=== PATIENT | female | born 1955 | race Caucasian/White ===

== ENCOUNTER 2017-04-05 11:22 | Emergency (ER) | payer MEDICAID ==
[2017-04-05 11:33] VITALS: BMI 33.8
[2017-04-05 11:34] VITALS: BP 157/92; PULSE 112; RESP 20; TEMP 97.7; O2SAT 96
--- NOTE | 2017-04-05 12:29 | ED PDOC ---
HPI: Nose Bleed Time Seen by Provider: 04/05/17 11:49 Chief Complaint (Nursing): GI Problem History Per: Patient History/Exam Limitations: no limitations Onset/Duration Of Symptoms: Sudden Onset (this am) Current Symptoms Are (Timing): Still Present Location Of Bleeding: Right Nare Symptoms Have Been: Episodic Severity: Mild Associated Symptoms: denies: Syncope, Lightheadedness, Nasal Congestion, Nasal Drainage Anticoagulant/Antiplatlet Use?: No Recent Aspirin Use: No Additional Complaint(s): Pt c/o vomiting "a lot of blood" yesterday night at around 21:00. No instances of vomiting since. + nasal bleed on right nare. Pt states she has no nausea, no chest or abdominal pain, no shortness of breath, no fever. Past Medical History Reviewed: Historical Data, Nursing Documentation, Vital Signs Vital Signs: Last Vital Signs Temp 97.7 F 04/05/17 11:50 Pulse 112 H 04/05/17 11:50 Resp 20 04/05/17 11:50 BP 157/92 H 04/05/17 11:50 Pulse Ox 96 04/05/17 11:50 - Medical History PMH: Arthritis, Diabetes, HTN, Hypercholesterolemia Denies: Chronic Kidney Disease - Surgical History Surgical History: Cholecystectomy, - Family History Family History: States: Diabetes, Hypertension - Living Arrangements Living Arrangements: With Family - Home Medications Home Medications: Ambulatory Orders Medication Instructions Recorded Escitalopram [Lexapro] 10 mg PO DAILY 05/01/15 Fenofibrate [Triglide] 160 mg PO DAILY 05/01/15 Hydroxyzine Pamoate 25 mg PO TID 05/01/15 Metoprolol Succinate 100 mg PO DAILY 05/01/15 Ramipril [Altace] 10 mg PO BID 05/01/15 Famotidine [Pepcid] 20 mg PO DAILY #0 tab 05/04/15 Insulin Detemir [Levemir] 60 units SC HS #0 vial 05/04/15 Insulin Lispro [humALOG] 24 units SC AC #0 ml 05/04/15 Ramipril [Altace] 10 mg PO BID #0 cap 05/04/15 amLODIPine [Norvasc] 10 mg PO DAILY #0 tab 05/04/15 Acetaminophen with Codeine 2 tab PO Q4H PRN #22 tab 06/27/15 [Tylenol with Codeine No. 3 300 mg-30 mg] Clindamycin [Cleocin] 300 mg PO TID #21 cap 05/11/15 Fluconazole [Diflucan] 150 mg PO QWK #2 tab 05/11/15 Pramoxine 1% FOAM [Proctofoam] 15 applic TOP Q6H #1 aer 05/11/15 - Allergies Allergies/Adverse Reactions: Allergies Allergy/AdvReac Type Severity Reaction Status Date / Time No Known Allergies Allergy Verified 04/30/15 21:21 Review of Systems ROS Statement: Except As Marked, All Systems Reviewed And Found Negative Constitutional: Negative for: Fever, Chills Cardiovascular: Negative for: Chest Pain, Palpitations Respiratory: Negative for: Cough, Shortness of Breath Gastrointestinal: Negative for: Nausea, Vomiting, Abdominal Pain Neurological: Negative for: Weakness, Numbness Physical Exam - Reviewed Nursing Documentation Reviewed: Yes - Physical Exam Appears: Positive for: Well, No Acute Distress Head Exam: Positive for: ATRAUMATIC, NORMAL INSPECTION, NORMOCEPHALIC Eye Exam: Positive for: Normal appearance, EOMI, PERRL, Periorbital swelling ENT: Positive for: Pharynx Is (nml), Other (mild dried blood in right nare). Negative for: Pharyngeal Erythema, Tonsillar Exudate, Tonsillar Swelling Neck: Positive for: Normal, Painless ROM, Supple Cardiovascular/Chest: Positive for: Regular Rate, Rhythm. Negative for: Edema, Gallop Respiratory: Positive for: Normal Breath Sounds. Negative for: Stridor, Wheezing Gastrointestinal/Abdominal: Positive for: Normal Exam, Bowel Sounds, Soft. Negative for: Tenderness Extremity: Positive for: Normal ROM. 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 Negative for: Motor/Sensory Deficits - Laboratory Results Result Diagrams: 04/05/17 12:59 04/05/17 12:59 - ECG O2 Sat by Pulse Oximetry: 96 Pulse Ox Interpretation: Normal - Progress ED Course And Treament: nose bleeding stopped labs nml advise f/u with clinic pmd and ent Re-evaluation Time: 13:40 Condition: Improved Disposition - Clinical Impression Clinical Impression: Right-sided epistaxis - Patient ED Disposition Is Patient to be Admitted: No Counseled Patient/Family Regarding: Studies Performed, Diagnosis, Need For Followup - Disposition Referrals: [facility] [Outside] (2 to 3 days) Shivam Moseley MD [Staff Provider] - (2 to 3 days) Disposition: Routine/Home Disposition Time: 13:41 Condition: GOOD Instructions: Nosebleed (ED)
[2017-04-05 13:05] LABS: BASO # 0.1 K/uL (0.0-0.2); BASO % 0.8 % (0.0-2.0); EOS # 0.6 K/uL (0.0-0.7); EOS % 8.7 % (0.0-4.0); HEMATOCRIT 35.6 % (34.0-47.0); LYMPH # 2.5 K/uL (1.0-4.3); LYMPH % 35.6 % (20.0-40.0); MEAN CELL VOLUME 84.7 fl (81.0-99.0); MEAN PLATELET VOLUME 7.3 fl (7.2-11.7); MONO # 0.5 K/uL (0.0-0.8); MONO % 7.7 % (0.0-10.0); NEUT # 3.3 K/uL (1.8-7.0); NEUT % 47.2 % (50.0-75.0); NRBC % 0.1 % (0.0-0.0); RED CELL DISTRIBUTION WIDTH 12.9 % (11.5-14.5)
[2017-04-05 13:32] LABS: AMYLASE 63 U/L (30-110); CHLORIDE 101 mmol/L (98-107); GLUCOSE,RANDOM 234 mg/dL (65-105); TOTAL PROTEIN 7.8 G/DL (6.3-8.2)
[2017-04-05 13:33] LABS: ALB/GLOB RATIO 1.2 (1.0-2.1); ALKALINE PHOSPHATASE 94 U/L (38-126); ALT/SGPT 42 U/L (9-52); AST/SGOT 46 U/L (14-36); BILIRUBIN,TOTAL 0.2 mg/dl (0.2-1.3); BLOOD UREA NITROGEN 17 mg/dl (7-17); CALCIUM 9.8 mg/dL (8.4-10.2); CARBON DIOXIDE 24 mmol/L (22-30); GFR AFRICAN-AMERICAN > 60; LIPASE 93 U/L (23-300); SODIUM 139 mmol/l (132-148)
== END 2017-04-05 13:55 | disposition home or self-care (01) ==
LOC: H.ER 11:22
DX: R04.0 Epistaxis (principal); E11.9 Type 2 diabetes mellitus without complications; E78.00 Pure hypercholesterolemia, unspecified; I10 Essential (primary) hypertension; Z79.4 Long term (current) use of insulin

== ENCOUNTER 2018-02-22 09:23 | Inpatient (IN) | payer MEDICAID ==
[2018-02-22 09:24] VITALS: BMI 33.8
[2018-02-22] MEDS ORDERED: Sodium Chloride 0.9% 1,000 ML IV STA (09:55)
--- NOTE | 2018-02-22 10:02 | ED PDOC ---
HPI: Abdomen Time Seen by Provider: 02/22/18 09:39 Chief Complaint (Nursing): Dizziness/Lightheaded Chief Complaint (Provider): Abdominal pain History Per: Patient Onset/Duration Of Symptoms: Other (4 months) Additional Complaint(s): Pt reports generalized abdominal pain X 4 months, intermittent. Denies fever, CP, SOB, nausea, vomiting. States she has had diarrhea "for years". Also c/o elevated glucose X few days, compliant with meds. Past Medical History Reviewed: Nursing Documentation, Vital Signs Vital Signs: Last Vital Signs Temp 98.4 F 02/26/18 08:38 Pulse 94 H 02/26/18 09:26 Resp 20 02/26/18 08:38 BP 157/81 H 02/26/18 09:26 Pulse Ox 97 02/26/18 08:38 - Medical History PMH: Arthritis, Diabetes, HTN, Hypercholesterolemia Denies: Chronic Kidney Disease - Surgical History Surgical History: Cholecystectomy, - Family History Family History: States: Diabetes, Hypertension - Social History Current smoker - smoking cessation education provided: No Alcohol: None - Home Medications Home Medications: Ambulatory Orders Medication Instructions Recorded Escitalopram [Lexapro] 10 mg PO DAILY 05/01/15 Hydroxyzine Pamoate 25 mg PO TID 05/01/15 Insulin Lispro [humALOG] 24 units SC AC #0 ml 05/04/15 amLODIPine [Norvasc] 10 mg PO DAILY #0 tab 05/04/15 Acetaminophen/Butalbital/Caf 2 tab PO PRN PRN 02/22/18 [Fioricet] Insulin Detemir [Levemir] 100 units SC HS 02/22/18 diaZEpam [Valium] 10 mg PO HS 02/22/18 Lisinopril [Zestril] 20 mg PO DAILY #30 tab 02/25/18 Metoprolol Succinate [Toprol XL] 25 mg PO DAILY #30 tab 02/25/18 amLODIPine [Norvasc] 10 mg PO DAILY #30 tab 02/25/18 - Allergies Allergies/Adverse Reactions: Allergies Allergy/AdvReac Type Severity Reaction Status Date / Time No Known Allergies Allergy Verified 02/22/18 09:43 Review of Systems Constitutional: Negative for: Fever, Chills Cardiovascular: Negative for: Chest Pain, Palpitations Respiratory: Negative for: Cough, Shortness of Breath Gastrointestinal: Positive for: Abdominal Pain, Diarrhea. Negative for: Nausea , Vomiting, Hematochezia, Hematemesis Genitourinary Female: Negative for: Dysuria, Hematuria Musculoskeletal: Negative for: Back Pain Skin: Negative for: Rash, Lesions Neurological: Negative for: Weakness, Numbness, Headache Physical Exam - Reviewed Nursing Documentation Reviewed: Yes Vital Signs Reviewed: Yes - Physical Exam Appears: Positive for: Well, No Acute Distress Skin: Positive for: Normal Color, Warm, Dry Eye Exam: Positive for: Normal appearance, EOMI, PERRL Neck: Positive for: Normal Cardiovascular/Chest: Positive for: Tachycardia Respiratory: Positive for: Normal Breath Sounds Gastrointestinal/Abdominal: Positive for: Bowel Sounds, Soft, Tenderness ( Generalized). 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 O2 Sat by Pulse Oximetry: 99 Pulse Ox Interpretation: Normal Medical Decision Making Medical Decision Makin yo female with abdominal pain and elevated glucose. - labs - EKG - CT abd/pelvis - Morphine - IVF Accession No. : [id number] Patient Name / ID : JOEL MARTINEZ / [id number] Exam Date : 02/22/2018 16:55:58 ( Approved ) Study Comment : Sex / Age : F / 62Y Creator : Jose Manuel Carl MD Dictator : Jose Manuel Carl MD Engraving Press Operator : Creosoting Engineer : Jose Manuel Carl MD Approver2 : Report Date : 02/22/2018 17:40:55 My Comment : HISTORY: Abdominal pain COMPARISON: 09/09/2017 FINDINGS: LUNGS: No active pulmonary disease. PLEURA: No significant pleural effusion identified, no pneumothorax apparent. CARDIOVASCULAR: No radiographic findings to suggest acute or significant cardiovascular disease. OSSEOUS STRUCTURES: No significant abnormalities. VISUALIZED UPPER ABDOMEN: Normal. OTHER FINDINGS: None. IMPRESSION: No active disease. No significant interval change compared to the prior examination(s). Accession No. : [id number] Patient Name / ID : JOEL MARTINEZ / [id number] Exam Date : 02/22/2018 12:08:38 ( Approved ) Study Comment : Sex / Age : F / 62Y Creator : Valentin Pardo MD Dictator : Valentin Pardo MD Engraving Press Operator : Creosoting Engineer : Valentin Pardo MD Approver2 : Report Date : 02/22/2018 13:18:19 My Comment : PROCEDURE: CT Abdomen and Pelvis with contrast HISTORY: Gen abd pain COMPARISON: Limited abdomen ultrasound examination 02/27/2015. TECHNIQUE: Contrast dose: Omnipaque 300, 95 cc Radiation dose: Total exam DLP = 983.46 mGy-cm. This CT exam was performed using one or more of the following dose reduction techniques: Automated exposure control, adjustment of the mA and/or kV according to patient size, and/or use of iterative reconstruction technique. FINDINGS: LOWER THORAX: Unremarkable. LIVER: Liver is diffusely diminished in attenuation compatible with hepatic steatosis. No focal mass or definite intrahepatic biliary duct dilatation and no cystic changes either. GALLBLADDER AND BILE DUCTS: Prior cholecystectomy again evident. PANCREAS: Unremarkable. No gross lesion or ductal dilatation. SPLEEN: Unremarkable. ADRENALS: Unremarkable. No mass. KIDNEYS AND URETERS: Unremarkable. No hydronephrosis. No solid mass. VASCULATURE: Unremarkable. No aortic aneurysm. BOWEL: Left colonic diverticulosis is appreciated, concentrated at the sigmoid segment without acute inflammation associated. No bowel obstruction. The stomach is collapsed partially. Consider gas-less stool at the upper cecum though a mass is difficult to exclude here. APPENDIX: The appendix not identified but there is no CT pattern suggest appendicitis at this time. PERITONEUM: Unremarkable. No free fluid. No free air. LYMPH NODES: Unremarkable. No enlarged lymph nodes. BLADDER: Unremarkable. REPRODUCTIVE: Unremarkable. BONES: Minimal spondylolisthesis L4-5. No destructive bony lesion appreciable throughout. OTHER FINDINGS: None. IMPRESSION: Nonacute abdomen pelvis CT in general. Hepatic steatosis appreciated diffusely and there is left colonic diverticular disease without acute inflammation associated. Considered gas a school versus a potential underlying mass at the upper cecum. Follow-up lower endoscopy or double-contrast barium enema is advised for further evaluation electively. 17:40 Pt with persistent mildly elevated HR. Now states she is SOB, D-dimer, troponin and proBNP ordered. Elevated D-dimer, unable to obtain CT chest PE protocol because she had CT abd/ pelvis with IV contrast earlier. Will admit for VQ in AM and will administered Lovenox. Disposition - Clinical Impression Clinical Impression: Hyperglycemia, Abdominal pain, Tachycardia - Patient ED Disposition Is Patient to be Admitted: Yes - Disposition Disposition Time: 18:21 Condition: STABLE - Pt Status Changed To: Hospital Disposition Of: Observation - POA Present On Arrival: Poor Glycemic Control
[2018-02-22] MEDS ORDERED: Morphine 4 MG/ML VIAL ONE (10:32)
[2018-02-22] MEDS ORDERED: Morphine 4 MG/ML VIAL IV STA (10:34)
[2018-02-22 10:39] LABS: BASO # 0.1 K/uL (0.0-0.2); BASO % 1.8 % (0.0-2.0); EOS # 0.4 K/uL (0.0-0.7); EOS % 8.5 % (0.0-4.0); HEMOGLOBIN 11.4 g/dL (12.0-16.0); LYMPH # 1.7 K/uL (1.0-4.3); LYMPH % 40.4 % (20.0-40.0); MEAN CELL VOLUME 85.1 fl (81.0-99.0); MEAN CORPUSCULAR HEMOGLOBIN 28.2 pg (27.0-31.0); MEAN CORPUSCULAR HGB CONC 33.1 g/dL (33.0-37.0); MEAN PLATELET VOLUME 7.6 fl (7.2-11.7); MONO # 0.4 K/uL (0.0-0.8); MONO % 8.4 % (0.0-10.0); NEUT # 1.7 K/uL (1.8-7.0); NEUT % 40.9 % (50.0-75.0); RBC 4.06 Mil/uL (3.80-5.20); WHITE BLOOD COUNT 4.3 K/uL (4.8-10.8)
[2018-02-22 10:53] LABS: INR 0.9 (0.9-1.2); PARTIAL THROMBOPLASTIN TIME 26.2 Seconds (25.6-37.1); PROTHROMBIN TIME 10.4 Seconds (9.8-13.1)
[2018-02-22 11:06] LABS: ALBUMIN 3.5 g/dL (3.5-5.0); ALT/SGPT 38 U/L (9-52); AST/SGOT 36 U/L (14-36); BLOOD UREA NITROGEN 21 mg/dl (7-17); CALCIUM 8.8 mg/dL (8.4-10.2); GFR AFRICAN-AMERICAN > 60; GFR NON-AFRICAN AMERICAN > 60; LIPASE 157 U/L (23-300)
[2018-02-22] MEDS ORDERED: Iohexol 300 50 ML ONE (11:54)
[2018-02-22] MEDS ORDERED: Sodium Chloride 0.9% 100 ML ONE (11:54)
--- NOTE | 2018-02-22 12:12 | CARD ---
APPROVED REPORT EKG Measurement Heart [id number] <Conclusion> Sinus tachycardia Nonspecific T wave abnormality Abnormal ECG
[2018-02-22 12:30] LABS: URINE BILIRUBIN NEGATIVE (NEGATIVE); URINE BLOOD NEGATIVE (NEGATIVE); URINE CLARITY CLEAR (Clear); URINE COLOR STRAW (YELLOW); URINE GLUCOSE (UA) >=500 mg/dL (Normal); URINE LEUKOCYTE ESTERASE NEG Leu/uL (Negative); URINE PROTEIN 100 mg/dL (NEGATIVE); URINE UROBILINOGEN 0.2-1.0 mg/dL (0.2-1.0)
--- NOTE | 2018-02-22 13:19 | CT ---
PROCEDURE: CT Abdomen and Pelvis with contrast HISTORY: Gen abd pain COMPARISON: Limited abdomen ultrasound examination 02/27/2015. TECHNIQUE: Contrast dose: Omnipaque 300, 95 cc Radiation dose: Total exam DLP = 983.46 mGy-cm. This CT exam was performed using one or more of the following dose reduction techniques: Automated exposure control, adjustment of the mA and/or kV according to patient size, and/or use of iterative reconstruction technique. FINDINGS: LOWER THORAX: Unremarkable. LIVER: Liver is diffusely diminished in attenuation compatible with hepatic steatosis. No focal mass or definite intrahepatic biliary duct dilatation and no cystic changes either. GALLBLADDER AND BILE DUCTS: Prior cholecystectomy again evident. PANCREAS: Unremarkable. No gross lesion or ductal dilatation. SPLEEN: Unremarkable. ADRENALS: Unremarkable. No mass. KIDNEYS AND URETERS: Unremarkable. No hydronephrosis. No solid mass. VASCULATURE: Unremarkable. No aortic aneurysm. BOWEL: Left colonic diverticulosis is appreciated, concentrated at the sigmoid segment without acute inflammation associated. No bowel obstruction. The stomach is collapsed partially. Consider gas-less stool at the upper cecum though a mass is difficult to exclude here. APPENDIX: The appendix not identified but there is no CT pattern suggest appendicitis at this time. PERITONEUM: Unremarkable. No free fluid. No free air. LYMPH NODES: Unremarkable. No enlarged lymph nodes. BLADDER: Unremarkable. REPRODUCTIVE: Unremarkable. BONES: Minimal spondylolisthesis L4-5. No destructive bony lesion appreciable throughout. OTHER FINDINGS: None. IMPRESSION: Nonacute abdomen pelvis CT in general. Hepatic steatosis appreciated diffusely and there is left colonic diverticular disease without acute inflammation associated. Considered gas a school versus a potential underlying mass at the upper cecum. Follow-up lower endoscopy or double-contrast barium enema is advised for further evaluation electively.
[2018-02-22] MEDS ORDERED: Sod Polystyrene Sulf 15 gm/60 ml Susp PO STA (13:23)
[2018-02-22] MEDS ORDERED: Sod Polystyrene Sulf 15 gm/60 ml Susp ONE (13:40)
[2018-02-22] MEDS ORDERED: Insulin Regular 100 units/ml IV STA ×2 (14:31→15:15)
[2018-02-22] MEDS ORDERED: Sodium Chloride 0.9% 500 ML IV STA ×2 (15:26→18:49)
--- NOTE | 2018-02-22 17:42 | RAD ---
HISTORY: Abdominal pain COMPARISON: 09/09/2017 FINDINGS: LUNGS: No active pulmonary disease. PLEURA: No significant pleural effusion identified, no pneumothorax apparent. CARDIOVASCULAR: No radiographic findings to suggest acute or significant cardiovascular disease. OSSEOUS STRUCTURES: No significant abnormalities. VISUALIZED UPPER ABDOMEN: Normal. OTHER FINDINGS: None. IMPRESSION: No active disease. No significant interval change compared to the prior examination(s).
[2018-02-22] MEDS ORDERED: Enoxaparin 80 mg Syringe SC STA (18:31)
[2018-02-22 18:37] LABS: B-TYPE NATRIURETIC PEPTIDE 29.9 pg/ml (0-900)
[2018-02-22 19:55] LABS: BLOOD UREA NITROGEN 15 mg/dl (7-17); GFR AFRICAN-AMERICAN > 60; GFR NON-AFRICAN AMERICAN > 60
--- NOTE | 2018-02-22 19:55 | US ---
EXAM: US Duplex Bilateral Lower Extremity Veins CLINICAL HISTORY: 62 years old, female; Signs and symptoms; Other: SOB TECHNIQUE: Real-time duplex ultrasound scan of the bilateral lower extremity veins integrating B-mode two-dimensional vascular structure, Doppler spectral analysis, color flow Doppler imaging and compression. COMPARISON: No relevant prior studies available. FINDINGS: Right deep veins: Unremarkable. No DVT in the right common femoral, femoral, proximal deep femoral or popliteal veins. The veins demonstrate normal color flow, are normally compressible, with normal phasic flow and/or augmentation response. Right superficial veins: Unremarkable. No thrombus in the visualized right great saphenous vein. Left deep veins: Unremarkable. No DVT in the left common femoral, femoral, proximal deep femoral or popliteal veins. The veins demonstrate normal color flow, are normally compressible, with normal phasic flow and/or augmentation response. Left superficial veins: Unremarkable. No thrombus in the visualized left great saphenous vein. Soft tissues: No acute findings. No popliteal cyst. IMPRESSION: No evidence of right or left lower extremity venous thrombosis.
[2018-02-22 20:23] LABS: ABG ALLEN TEST YES; ARTERIAL BLOOD GAS HCO3 21.8 mmol/L (21-28); ARTERIAL BLOOD GAS O2 CAPACITY 16.2 mL/dL (16-24); ARTERIAL BLOOD GAS O2 SAT 98.8 % (95-98); ARTERIAL BLOOD GAS PCO2 36 mm/Hg (35-45); ARTERIAL BLOOD GAS PH 7.37 (7.35-7.45); ARTERIAL BLOOD GAS PO2 75 mm/Hg (80-100); ARTERIAL BLOOD GAS TCO2 21.9 mmol/L (22-28)
[2018-02-22] MEDS ORDERED: Apap-Butalbital-Caffeine 325-50-40mg Tab ONE (20:30)
[2018-02-22] MEDS: Apap-Butalbital-Caffeine 325-50-40mg Tab PO PRN (20:44)
[2018-02-22] MEDS ORDERED: Sodium Chloride 0.45% 1,000 ML IV SCH (21:00)
[2018-02-22] MEDS: Insulin Lispro (humaLOG) 100 Units/ml Inj SC SCH (21:43)
[2018-02-23] MEDS: Apap-Butalbital-Caffeine 325-50-40mg Tab PO PRN ×3 (01:51→19:48)
[2018-02-23 06:18] LABS: HEMOGLOBIN 11.5 g/dL (12.0-16.0); MEAN CORPUSCULAR HEMOGLOBIN 28.3 pg (27.0-31.0); MEAN CORPUSCULAR HGB CONC 33.7 g/dL (33.0-37.0); RBC 4.05 Mil/uL (3.80-5.20); RED CELL DISTRIBUTION WIDTH 12.8 % (11.5-14.5); WHITE BLOOD COUNT 4.9 K/uL (4.8-10.8)
[2018-02-23 06:25] LABS: ALB/GLOB RATIO 0.9 (1.0-2.1); ALBUMIN 3.1 g/dL (3.5-5.0); ALT/SGPT 42 U/L (9-52); AST/SGOT 44 U/L (14-36); BLOOD UREA NITROGEN 11 mg/dl (7-17); CALCIUM 8.6 mg/dL (8.4-10.2); GFR AFRICAN-AMERICAN > 60; GFR NON-AFRICAN AMERICAN > 60; HDL CHOLESTEROL 26 MG/DL (30-70)
[2018-02-23 06:28] LABS: LDL CHOLESTEROL 51 mg/dL (0-129)
[2018-02-23 08:21] LABS: T4 6.56 ug/dl (5.5-11.0)
[2018-02-23] MEDS ORDERED: Enoxaparin 80 mg Syringe SC SCH ×2 (09:00→09:01)
[2018-02-23] MEDS ORDERED: Dextrose 50% SYRINGE Inj (50 ml) IV PRN (09:56)
[2018-02-23] MEDS ORDERED: Glucagon Recombinant 1 mg Inj IM PRN (09:56)
[2018-02-23] MEDS ORDERED: Magnesium Citrate Oral SOL (300 ml) PO ONE ×2 (11:00→20:00)
[2018-02-23] MEDS ORDERED: Iodixanol 320 MG/ML 100 ML BOTTLE IV ONE (11:25)
[2018-02-23] MEDS ORDERED: Sodium Chloride 0.9% 100 ML ONE (11:25)
[2018-02-23] MEDS: Omega-3-Acid Ethyl Esters 1 GM Cap PO SCH ×2 (12:46→17:10)
[2018-02-23] MEDS: Insulin Lispro (humaLOG) 100 Units/ml Inj SC SCH (12:48)
[2018-02-23] MEDS: Metoprolol Succinate 25 mg XL Tab PO SCH (12:48)
[2018-02-23] MEDS: Insulin Regular 100 units/ml SC SCH ×3 (12:58→21:16)
--- NOTE | 2018-02-23 13:40 | CT ---
PROCEDURE: CT Chest with contrast (Pulmonary Angiogram) HISTORY: SOB COMPARISON: None available. TECHNIQUE: Axial computed tomography images were obtained of the chest in the pulmonary arterial phase of enhancement. Coronal and sagittal reformatted images were created and reviewed. Intravenous contrast dose: 95 cc Visipaque Radiation dose: Total exam DLP = 425 mGy-cm. This CT exam was performed using one or more of the following dose reduction techniques: Automated exposure control, adjustment of the mA and/or kV according to patient size, and/or use of iterative reconstruction technique. FINDINGS: PULMONARY ARTERIES: Unremarkable. No pulmonary embolism. AORTA: No acute findings. No thoracic aortic aneurysm. LUNGS: A 1.3 cm nonspecific nodular opacity solid-appearing slight irregular margins in the lingula is noted. Thin fibrous strands emanating from it are noted. Benign and malignant etiologies are considerations for it. Follow-up needed PLEURAL SPACES: Unremarkable. No effusion or pneuomothorax. HEART: Coronary artery calcifications suggested. No cardiomegaly. No significant pericardial effusion. LYMPH NODES: No lymphadenopathy. BONES, CHEST WALL: Unremarkable. No fracture or destructive lesion OTHER FINDINGS: Right upper quadrant cholecystectomy clips. Hepatic steatosis suggested IMPRESSION: No pulmonary embolus. Lingular 1.3 cm irregularly marginated nodule -postinflammatory benign etiology is 1 consideration. Malignancy not excluded. Follow-up recommended.
[2018-02-23] MEDS ORDERED: Bisacodyl 5mg EC Tab PO ONE (14:00)
--- NOTE | 2018-02-23 14:24 | CP.PCM.HP ---
History of Present Illness - History of Present Illness History of Present Illness: CC: Abdominal pain. 62 y/o F brought to ER [facility] on 02/22/18, to be evaluated for intermittent generalized abdominal pain, gradually increased from about 4 moths , on DOA, pain has been dull, intermittent, severe intensity 7:10, with no relief. Associated to CT Abd/Pelv showing: Hepatic Steatosis, L Colonic Diverticular Disease without acute inflammation Worsening factor: As per Pt, night [employer] with elevated BS in 401 (finger stick), upon arrival to ER in the 274. Also elevated BP 167/92, HR 120'S. with associated symptoms of headache, dizziness. Aggravated factor: Food. Pt denied: Fever, chills, n/v, urinary symptoms, CP, syncope, LOC, numbness, SOB, cough, sick contact, recent travel out of [facility]. EKG shows: Sinus tachycardia. CXR: No active disease. Ext U-S: No DVT. Chest CT: No PE. Lingular 1.3cm irregularly marginalized nodule- postinflamatory benign etiology is 1 consideration. Malignancy not excluded. Present on Admission - Present on Admission Any Indicators Present on Admission: Yes History of Uncontrolled Diabetes: Yes Review of Systems - Constitutional Constitutional: Headache - EENT Eyes: Requires Corrective Lenses Ears: Other (negative) Nose/Mouth/Throat: Other (negative) - Cardiovascular Cardiovascular: Rapid Heart Rate - Respiratory Respiratory: Other (negative) - Gastrointestinal Gastrointestinal: Abdominal Pain, Diarrhea (chronic) - Genitourinary Genitourinary: Other (negative) - Musculoskeletal Musculoskeletal: Arthralgias - Integumentary Integumentary: Other (negative) - Neurological Neurological: Dizziness, Headaches - Psychiatric Psychiatric: Anxiety - Endocrine Endocrine: Other (negative) - Hematologic/Lymphatic Hematologic: Other (negative) Past Patient History - Past Medical History & Family History Past Medical History?: Yes Pertinent Family History: Unknown - Past Social History Smoking Status: Never Smoked Alcohol: None Drugs: Denies Home Situation {Lives}: Alone - CARDIAC Hx Cardiac Disorders: Yes Hx Hypercholesterolemia: Yes Hx Hypertension: Yes - PULMONARY Hx Respiratory Disorders: No - NEUROLOGICAL Hx Neurological Disorder: Yes Hx Migraine: Yes - HEENT Hx HEENT Problems: No - RENAL Hx Chronic Kidney Disease: No - ENDOCRINE/METABOLIC Hx Endocrine Disorders: Yes Hx Diabetes Mellitus Type 2: Yes - HEMATOLOGICAL/ONCOLOGICAL Hx Blood Disorders: No - INTEGUMENTARY Hx Dermatological Problems: No - MUSCULOSKELETAL/RHEUMATOLOGICAL Hx Musculoskeletal Disorders: Yes Hx Arthritis: Yes Hx Falls: No - GASTROINTESTINAL Hx Gastrointestinal Disorders: No Hx Vomiting: No - GENITOURINARY/GYNECOLOGICAL Hx Genitourinary Disorders: No - PSYCHIATRIC Hx Psychophysiologic Disorder: Yes Hx Depression: Yes Hx Substance Use: No - SURGICAL HISTORY Hx Surgeries: Yes Hx Section: Yes Hx Cholecystectomy: Yes - ANESTHESIA Hx Anesthesia: Yes Hx Anesthesia Reactions: No Hx Malignant Hyperthermia: No Meds Allergies/Adverse Reactions: Allergies Allergy/AdvReac Type Severity Reaction Status Date / Time No Known Allergies Allergy Verified 02/22/18 09:43 Physical Exam - Constitutional Appears: No Acute Distress - Head Exam Head Exam: NORMAL INSPECTION - Eye Exam Eye Exam: PERRL - ENT Exam ENT Exam: Normal Exam - Neck Exam Neck exam: Positive for: Normal Inspection - Respiratory Exam Respiratory Exam: NORMAL BREATHING PATTERN - Cardiovascular Exam Cardiovascular Exam: REGULAR RHYTHM - GI/Abdominal Exam GI & Abdominal Exam: Normal Bowel Sounds, Soft, Tenderness (mild) - Back Exam Back exam: NORMAL INSPECTION - Neurological Exam Neurological exam: Alert, Oriented x3, Reflexes Normal - Psychiatric Exam Psychiatric exam: Anxious, Depressed - Skin Skin Exam: Warm Results - Vital Signs Recent Vital Signs: Last Vital Signs Temp 98 F 02/23/18 12:13 Pulse 115 H 02/23/18 12:48 Resp 18 02/23/18 12:13 BP 175/90 H 02/23/18 12:48 Pulse Ox 96 02/23/18 12:13 reviewed J.Raimundo - Labs Result Diagrams: 02/24/18 05:30 02/24/18 05:30 Labs: Laboratory Results - last 24 hr 02/22/18 02/22/18 02/22/18 14:18 17:48 17:48 WBC RBC Hgb Hct MCV MCH MCHC RDW Plt Count D-Dimer, Quantitative 634 H pCO2 pO2 HCO3 ABG pH ABG Total CO2 ABG O2 Saturation ABG O2 Content ABG Base Excess ABG Hemoglobin ABG Carboxyhemoglobin POC ABG HHb (Measured) ABG Methemoglobin ABG O2 Capacity Jamey Test A-a O2 Difference Hgb O2 Saturation Vent Mode FiO2 Sodium Potassium 4.9 Chloride Carbon Dioxide Anion Gap BUN Creatinine Est GFR ( Amer) Est GFR (Non-Af Amer) POC Glucose (mg/dL) 167 H Random Glucose Hemoglobin A1c Calcium Total Bilirubin AST ALT Alkaline Phosphatase Troponin I < 0.0120 NT-Pro-B Natriuret Pep 29.9 Total Protein Albumin Globulin Albumin/Globulin Ratio Triglycerides Cholesterol LDL Cholesterol Direct HDL Cholesterol Thyroxine (T4) TSH 3rd Generation 02/22/18 02/22/18 02/22/18 18:35 20:15 21:26 WBC RBC Hgb Hct MCV MCH MCHC RDW Plt Count D-Dimer, Quantitative pCO2 36 pO2 75 L HCO3 21.8 ABG pH 7.37 ABG Total CO2 21.9 L ABG O2 Saturation 98.8 H ABG O2 Content 16.0 ABG Base Excess -3.9 L ABG Hemoglobin 12.0 ABG Carboxyhemoglobin 2.2 H POC ABG HHb (Measured) 1.1 ABG Methemoglobin 2.4 ABG O2 Capacity 16.2 Jamey Test Yes A-a O2 Difference 30.0 Hgb O2 Saturation 94.4 L Vent Mode Room air FiO2 21.0 Sodium 148 Potassium 4.9 Chloride 110 H Carbon Dioxide 21 L Anion Gap 22 H BUN 15 Creatinine 0.7 Est GFR ( Amer) > 60 Est GFR (Non-Af Amer) > 60 POC Glucose (mg/dL) 223 H Random Glucose 138 H Hemoglobin A1c Calcium 9.0 Total Bilirubin AST ALT Alkaline Phosphatase Troponin I NT-Pro-B Natriuret Pep Total Protein Albumin Globulin Albumin/Globulin Ratio Triglycerides Cholesterol LDL Cholesterol Direct HDL Cholesterol Thyroxine (T4) TSH 3rd Generation 02/23/18 02/23/18 02/23/18 04:25 04:25 04:25 WBC 4.9 RBC 4.05 Hgb 11.5 L Hct 34.0 MCV 84.0 MCH 28.3 MCHC 33.7 RDW 12.8 Plt Count 250 D-Dimer, Quantitative pCO2 pO2 HCO3 ABG pH ABG Total CO2 ABG O2 Saturation ABG O2 Content ABG Base Excess ABG Hemoglobin ABG Carboxyhemoglobin POC ABG HHb (Measured) ABG Methemoglobin ABG O2 Capacity Jamey Test A-a O2 Difference Hgb O2 Saturation Vent Mode FiO2 Sodium 141 Potassium 4.2 Chloride 104 Carbon Dioxide 24 Anion Gap 17 BUN 11 Creatinine 0.6 L Est GFR ( Amer) > 60 Est GFR (Non-Af Amer) > 60 POC Glucose (mg/dL) Random Glucose 199 H Hemoglobin A1c 10.1 H Calcium 8.6 Total Bilirubin 0.2 AST 44 H D ALT 42 Alkaline Phosphatase 102 Troponin I NT-Pro-B Natriuret Pep Total Protein 6.6 Albumin 3.1 L Globulin 3.5 Albumin/Globulin Ratio 0.9 L Triglycerides 679 H D Cholesterol 170 LDL Cholesterol Direct 51 HDL Cholesterol 26 L Thyroxine (T4) 6.56 TSH 3rd Generation 4.45 02/23/18 05:23 WBC RBC Hgb Hct MCV MCH MCHC RDW Plt Count D-Dimer, Quantitative pCO2 pO2 HCO3 ABG pH ABG Total CO2 ABG O2 Saturation ABG O2 Content ABG Base Excess ABG Hemoglobin ABG Carboxyhemoglobin POC ABG HHb (Measured) ABG Methemoglobin ABG O2 Capacity Jamey Test A-a O2 Difference Hgb O2 Saturation Vent Mode FiO2 Sodium Potassium Chloride Carbon Dioxide Anion Gap BUN Creatinine Est GFR ( Amer) Est GFR (Non-Af Amer) POC Glucose (mg/dL) 192 H Random Glucose Hemoglobin A1c Calcium Total Bilirubin AST ALT Alkaline Phosphatase Troponin I NT-Pro-B Natriuret Pep Total Protein Albumin Globulin Albumin/Globulin Ratio Triglycerides Cholesterol LDL Cholesterol Direct HDL Cholesterol Thyroxine (T4) TSH 3rd Generation reviewed J.P. - EKG Data EKG comments: reviewed J.P. - Imaging and Cardiology CT scan - chest Status: Report reviewed by me (Brenden) CT scan - abdomen Status: Report reviewed by me (Brenden) CT scan - pelvis Status: Report reviewed by me (Brenden) Assessment & Plan (1) Abdominal pain Status: Acute Priority: High (2) Hyperglycemia Status: Acute Priority: High (3) Diabetes mellitus Status: Chronic Priority: High (4) High triglycerides Status: Chronic Priority: High (5) Hypertension Status: Chronic Priority: High (6) Lung nodule Status: Chronic Priority: Medium (7) Head ache Status: Acute Priority: High (8) Anxiety and depression Status: Chronic Priority: High - Assessment and Plan (Free Text) Plan: Fluid IV, Insulin, Norvasc, Lovaza, Fioricet and rest of Tx., CT Abd / Pelvis r/o Cecum mass , GI and Endocrinology consult. - Date & Time Date: 02/23/18 Time: 10:20
--- NOTE | 2018-02-23 17:32 | CP.PCM.CON ---
History of Present Illness - History of Present Illness History of Present Illness: 62 yo female c/o abdominal pain and intermittent diarrhea for 4 months. Over the past few days blood sugars have been very high. Review of Systems - Constitutional Constitutional: absent: Chills - EENT Eyes: absent: Blurred Vision Ears: absent: Decreased Hearing Nose/Mouth/Throat: absent: Epistaxis - Cardiovascular Cardiovascular: absent: Chest Pain - Respiratory Respiratory: absent: Dyspnea - Gastrointestinal Gastrointestinal: As Per HPI - Genitourinary Genitourinary: absent: Change in Urinary Stream Past Patient History - Past Medical History & Family History Past Medical History?: Yes - Past Social History Smoking Status: Never Smoked Alcohol: None Drugs: Denies Home Situation {Lives}: Alone - CARDIAC Hx Cardiac Disorders: Yes Hx Hypercholesterolemia: Yes Hx Hypertension: Yes - PULMONARY Hx Respiratory Disorders: No - NEUROLOGICAL Hx Neurological Disorder: Yes Hx Migraine: Yes - HEENT Hx HEENT Problems: No - RENAL Hx Chronic Kidney Disease: No - ENDOCRINE/METABOLIC Hx Endocrine Disorders: Yes Hx Diabetes Mellitus Type 2: Yes - HEMATOLOGICAL/ONCOLOGICAL Hx Blood Disorders: No - INTEGUMENTARY Hx Dermatological Problems: No - MUSCULOSKELETAL/RHEUMATOLOGICAL Hx Musculoskeletal Disorders: Yes Hx Arthritis: Yes Hx Falls: No - GASTROINTESTINAL Hx Gastrointestinal Disorders: No Hx Vomiting: No - GENITOURINARY/GYNECOLOGICAL Hx Genitourinary Disorders: No - PSYCHIATRIC Hx Psychophysiologic Disorder: Yes Hx Depression: Yes Hx Substance Use: No - SURGICAL HISTORY Hx Surgeries: Yes Hx Section: Yes Hx Cholecystectomy: Yes - ANESTHESIA Hx Anesthesia: Yes Hx Anesthesia Reactions: No Hx Malignant Hyperthermia: No Meds Allergies/Adverse Reactions: Allergies Allergy/AdvReac Type Severity Reaction Status Date / Time No Known Allergies Allergy Verified 02/22/18 09:43 - Medications Medications: Current Medications Acetaminophen/Butalbital/Caffeine (Fioricet) 2 tab PO Q4 PRN PRN Reason: Headache Last Admin: 02/23/18 12:52 Dose: 2 tab Amlodipine Besylate (Norvasc) 10 mg PO DAILY [facility] Last Admin: 02/23/18 08:31 Dose: 10 mg Dextrose (Dextrose 50% Inj) 0 ml IV STAT PRN; Protocol PRN Reason: Hypoglycemia Protocol Dextrose (Glutose 15) 0 gm PO ONCE PRN; Protocol PRN Reason: Hypoglycemia Protocol Diazepam (Valium) 10 mg PO HS [facility] Escitalopram Oxalate (Lexapro) 10 mg PO DAILY [facility] Last Admin: 02/23/18 08:31 Dose: 10 mg Glucagon (Glucagen Diagnostic Kit) 0 mg IM STAT PRN; Protocol PRN Reason: Hypoglycemia Protocol Hydroxyzine Pamoate (Vistaril) 25 mg PO TID [facility] Last Admin: 02/23/18 17:11 Dose: Not Given Insulin Detemir (Levemir) 20 units SC HS [facility] Insulin Human Regular (Humulin R) 0 units SC ACHS [facility] PRN Reason: Protocol Last Admin: 02/23/18 17:06 Dose: 3 units Magnesium Citrate (Citrate Of Mag) 300 ml PO ONCE ONE Stop: 02/23/18 20:01 Metoprolol Succinate (Toprol Xl) 25 mg PO DAILY [facility] Last Admin: 02/23/18 12:48 Dose: 25 mg [id number] Ethyl Esters (Lovaza) 2 gm PO BID [facility] Last Admin: 02/23/18 17:10 Dose: 2 gm Physical Exam - Constitutional Appears: No Acute Distress - Head Exam Head Exam: ATRAUMATIC - Eye Exam Eye Exam: Normal appearance Pupil Exam: PERRL - ENT Exam ENT Exam: Normal Exam - Neck Exam Neck exam: Positive for: Normal Inspection - Respiratory Exam Respiratory Exam: Clear to Auscultation Bilateral - Cardiovascular Exam Cardiovascular Exam: REGULAR RHYTHM, +S1, +S2 - GI/Abdominal Exam GI & Abdominal Exam: Normal Bowel Sounds, Soft, Tenderness Additional comments: Diffuse mild tenderness Results - Vital Signs Recent Vital Signs: Last Vital Signs Temp 98.2 F 02/23/18 15:59 Pulse 112 H 02/23/18 15:59 Resp 17 02/23/18 15:59 BP 168/82 H 02/23/18 15:59 Pulse Ox 98 02/23/18 15:59 - Labs Result Diagrams: 02/23/18 04:25 02/23/18 04:25 Labs: Laboratory Results - last 24 hr 02/22/18 02/22/18 02/22/18 14:18 17:48 17:48 WBC RBC Hgb Hct MCV MCH MCHC RDW Plt Count D-Dimer, Quantitative 634 H pCO2 pO2 HCO3 ABG pH ABG Total CO2 ABG O2 Saturation ABG O2 Content ABG Base Excess ABG Hemoglobin ABG Carboxyhemoglobin POC ABG HHb (Measured) ABG Methemoglobin ABG O2 Capacity Jamey Test A-a O2 Difference Hgb O2 Saturation Vent Mode FiO2 Sodium Potassium 4.9 Chloride Carbon Dioxide Anion Gap BUN Creatinine Est GFR ( Amer) Est GFR (Non-Af Amer) POC Glucose (mg/dL) 167 H Random Glucose Hemoglobin A1c Calcium Total Bilirubin AST ALT Alkaline Phosphatase Troponin I < 0.0120 NT-Pro-B Natriuret Pep 29.9 Total Protein Albumin Globulin Albumin/Globulin Ratio Triglycerides Cholesterol LDL Cholesterol Direct HDL Cholesterol Thyroxine (T4) TSH 3rd Generation 02/22/18 02/22/18 02/22/18 18:35 20:15 21:26 WBC RBC Hgb Hct MCV MCH MCHC RDW Plt Count D-Dimer, Quantitative pCO2 36 pO2 75 L HCO3 21.8 ABG pH 7.37 ABG Total CO2 21.9 L ABG O2 Saturation 98.8 H ABG O2 Content 16.0 ABG Base Excess -3.9 L ABG Hemoglobin 12.0 ABG Carboxyhemoglobin 2.2 H POC ABG HHb (Measured) 1.1 ABG Methemoglobin 2.4 ABG O2 Capacity 16.2 Jamey Test Yes A-a O2 Difference 30.0 Hgb O2 Saturation 94.4 L Vent Mode Room air FiO2 21.0 Sodium 148 Potassium 4.9 Chloride 110 H Carbon Dioxide 21 L Anion Gap 22 H BUN 15 Creatinine 0.7 Est GFR ( Amer) > 60 Est GFR (Non-Af Amer) > 60 POC Glucose (mg/dL) 223 H Random Glucose 138 H Hemoglobin A1c Calcium 9.0 Total Bilirubin AST ALT Alkaline Phosphatase Troponin I NT-Pro-B Natriuret Pep Total Protein Albumin Globulin Albumin/Globulin Ratio Triglycerides Cholesterol LDL Cholesterol Direct HDL Cholesterol Thyroxine (T4) TSH 3rd Generation 02/23/18 02/23/18 02/23/18 04:25 04:25 04:25 WBC 4.9 RBC 4.05 Hgb 11.5 L Hct 34.0 MCV 84.0 MCH 28.3 MCHC 33.7 RDW 12.8 Plt Count 250 D-Dimer, Quantitative pCO2 pO2 HCO3 ABG pH ABG Total CO2 ABG O2 Saturation ABG O2 Content ABG Base Excess ABG Hemoglobin ABG Carboxyhemoglobin POC ABG HHb (Measured) ABG Methemoglobin ABG O2 Capacity Jamey Test A-a O2 Difference Hgb O2 Saturation Vent Mode FiO2 Sodium 141 Potassium 4.2 Chloride 104 Carbon Dioxide 24 Anion Gap 17 BUN 11 Creatinine 0.6 L Est GFR ( Amer) > 60 Est GFR (Non-Af Amer) > 60 POC Glucose (mg/dL) Random Glucose 199 H Hemoglobin A1c 10.1 H Calcium 8.6 Total Bilirubin 0.2 AST 44 H D ALT 42 Alkaline Phosphatase 102 Troponin I NT-Pro-B Natriuret Pep Total Protein 6.6 Albumin 3.1 L Globulin 3.5 Albumin/Globulin Ratio 0.9 L Triglycerides 679 H D Cholesterol 170 LDL Cholesterol Direct 51 HDL Cholesterol 26 L Thyroxine (T4) 6.56 TSH 3rd Generation 4.45 02/23/18 02/23/18 05:23 15:52 WBC RBC Hgb Hct MCV MCH MCHC RDW Plt Count D-Dimer, Quantitative pCO2 pO2 HCO3 ABG pH ABG Total CO2 ABG O2 Saturation ABG O2 Content ABG Base Excess ABG Hemoglobin ABG Carboxyhemoglobin POC ABG HHb (Measured) ABG Methemoglobin ABG O2 Capacity Jamey Test A-a O2 Difference Hgb O2 Saturation Vent Mode FiO2 Sodium Potassium Chloride Carbon Dioxide Anion Gap BUN Creatinine Est GFR ( Amer) Est GFR (Non-Af Amer) POC Glucose (mg/dL) 192 H 278 H Random Glucose Hemoglobin A1c Calcium Total Bilirubin AST ALT Alkaline Phosphatase Troponin I NT-Pro-B Natriuret Pep Total Protein Albumin Globulin Albumin/Globulin Ratio Triglycerides Cholesterol LDL Cholesterol Direct HDL Cholesterol Thyroxine (T4) TSH 3rd Generation Assessment & Plan (1) Abdominal pain Assessment and Plan: CT shows abnormality in cecum. Possibly a mass vs retained stool. Will do colonscopy to r/o mass. Status: Acute Priority: High
--- NOTE | 2018-02-23 21:55 | CON ---
ENDOCRINOLOGY NOTE DATE: LOCATION: In room 418. HISTORY OF PRESENT ILLNESS: This is a 62-year-old female with known history of type 2 insulin requiring diabetes admitted here with diffuse abdominal pain and apparently had worsening intensity over the last few days with associated nausea and dyspepsia and has been admitted now for further GI workup and management. PAST MEDICAL HISTORY: As mentioned above, history of type 2 insulin-requiring diabetes on a very high dose of a combination of Levemir given as 100 units subcutaneously at bedtime daily as given and she is also on Humalog given as 24 units subcutaneously t.i.d. before meals as ordered. History of hypertensive cardiovascular disease and dyslipidemia, history of irritable bowel syndrome with chronic diarrhea and episodic abdominal pain worse in the last 2 to 3 months prior to admission. Also admits to generalized osteoarthritis; moreover, she also has generalized anxiety on psychotropic medications. FAMILY HISTORY: Positive for hypertension and diabetes. SOCIAL HISTORY: The patient has a supportive family. No known substance use. REVIEW OF SYSTEMS: As mentioned above. Admits to generalized body weakness with easy fatigability and tiredness and suboptimal energy level. Also admits to episodic dizziness and lightheadedness worse in the last few days prior to admission. No chest pains or palpitations or PND. Her oral intake has been variable with nausea, dyspepsia, and diffuse abdominal pain worse in the last few days prior to admission. Also admits to alternating loose watery diarrhea with constipation as noted. Also admits to marked polyuria, nocturia, and polydipsia. PHYSICAL EXAMINATION: GENERAL: This is an overweight female in no apparent distress. VITAL SIGNS: Blood pressure of 150/90, pulse of 70 beats per minute and regular, temperature 98, respirations 20, height is 5 feet 3 inches, and weight is 187 pounds. HEENT: Head is normocephalic. Eyes anicteric with pink conjunctivae. Funduscopy not possible at this time. Ears, nose, and throat otherwise normal. NECK: Supple. Thyroid gland is normal in size. No carotid bruits or any cervical adenopathy. CARDIOPULMONARY: Some adynamic precordium. S1 and S2 is rapid and regular. LUNGS: Clear to auscultation. ABDOMEN: Flat and soft with positive bowel sounds. EXTREMITIES: No peripheral edema. Pulses are +2 bilaterally. LABORATORY DATA: Her chemistries showed a BUN of 11, sodium 141, potassium 4.2, chloride 104, CO2 of 24, glucose 199, and creatinine 0.6. Her hemoglobin A1c is 10.1%. Her triglyceride levels are 679 with an HDL of 26, LDL of 51, and cholesterol of 170. TSH is 4.45 with a T4 of 6.56. ASSESSMENT AND PLAN: This is a 62-year-old female with uncontrolled and decompensated type 2 insulin-requiring diabetes presenting here with diffuse abdominal pain and currently has been placed n.p.o. for further GI workup at this time and is being referred now for diabetic evaluation and management. She clearly has suboptimal metabolic control despite a very hefty basal and bolus insulin drug combination as noted. There is also very poor adherence to her diet regimen at this time. Plan of management as discussed with the patient and staff. We will continue her Levemir given as 20 units subcutaneously at bedtime daily as ordered. We will also continue the low-dose correction scale using regular insulin as ordered. Once they complete her GI workup, then we will advance her diet accordingly and initiate basal and bolus insulin drug combination as indicated. We will obtain serial chemistries and supplement accordingly as needed. We will follow. Melissa Gardner MD
[2018-02-23] MEDS ORDERED: Insulin Detemir 100 Units/ml Inj SC SCH (22:00)
[2018-02-24] MEDS ORDERED: Labetalol 5 mg/ml Inj 20ML IVP ONE (01:11)
[2018-02-24 06:56] LABS: HEMOGLOBIN 11.9 g/dL (12.0-16.0); MEAN CELL VOLUME 84.7 fl (81.0-99.0); MEAN CORPUSCULAR HGB CONC 33.1 g/dL (33.0-37.0); RBC 4.24 Mil/uL (3.80-5.20); WHITE BLOOD COUNT 5.1 K/uL (4.8-10.8)
[2018-02-24 07:07] LABS: BLOOD UREA NITROGEN 10 mg/dl (7-17); CALCIUM 8.8 mg/dL (8.4-10.2); GFR AFRICAN-AMERICAN > 60; GFR NON-AFRICAN AMERICAN > 60; HDL CHOLESTEROL 28 MG/DL (30-70)
[2018-02-24 07:18] LABS: LDL CHOLESTEROL 73 mg/dL (0-129)
[2018-02-24] MEDS: Insulin Lispro (humaLOG) 100 Units/ml Inj SC SCH ×5 (07:38→22:32)
[2018-02-24] MEDS: Omega-3-Acid Ethyl Esters 1 GM Cap PO SCH ×2 (10:26→18:04)
[2018-02-24] MEDS: Metoprolol Succinate 25 mg XL Tab PO SCH (10:29)
[2018-02-24] MEDS ORDERED: Lactated Ringer's 1,000 ML IV ONE (13:19)
[2018-02-24] MEDS ORDERED: Propofol 10 mg/ml Inj (20 ML) ONE ×2 (13:23→13:57)
--- NOTE | 2018-02-24 14:48 | CP.PCM.PN ---
Subjective - Date & Time of Evaluation Date of Evaluation: 02/24/18 Time of Evaluation: 10:20 - Subjective Subjective: F/U Abdominal pain. Objective - Vital Signs/Intake and Output Vital Signs (last 24 hours): Temp Pulse Resp BP Pulse Ox 98.4 F 98 H 16 145/69 98 02/24/18 14:25 02/24/18 14:25 02/24/18 14:25 02/24/18 14:25 02/24/18 14:25 Intake and Output: 02/24/18 02/24/18 06:59 18:59 Intake Total 1720 150 Balance 1720 150 - Medications Medications: Current Medications Acetaminophen/Butalbital/Caffeine (Fioricet) 2 tab PO Q4 PRN PRN Reason: Headache Last Admin: 02/23/18 19:48 Dose: 2 tab Amlodipine Besylate (Norvasc) 10 mg PO DAILY [facility] Last Admin: 02/24/18 10:28 Dose: 10 mg Dextrose (Dextrose 50% Inj) 0 ml IV STAT PRN; Protocol PRN Reason: Hypoglycemia Protocol Dextrose (Glutose 15) 0 gm PO ONCE PRN; Protocol PRN Reason: Hypoglycemia Protocol Diazepam (Valium) 10 mg PO HS [facility] Last Admin: 02/23/18 21:20 Dose: 10 mg Escitalopram Oxalate (Lexapro) 10 mg PO DAILY [facility] Last Admin: 02/24/18 10:26 Dose: Not Given Glucagon (Glucagen Diagnostic Kit) 0 mg IM STAT PRN; Protocol PRN Reason: Hypoglycemia Protocol Hydroxyzine Pamoate (Vistaril) 25 mg PO TID [facility] Last Admin: 02/24/18 14:23 Dose: Not Given Insulin Detemir (Levemir) 20 units SC HS [facility] Last Admin: 02/23/18 21:17 Dose: 20 u Insulin Human Lispro (Humalog) 0 units SC ACHS [facility] Last Admin: 02/24/18 14:23 Dose: Not Given Metoprolol Succinate (Toprol Xl) 25 mg PO DAILY [facility] Last Admin: 02/24/18 10:29 Dose: 25 mg [id number] Ethyl Esters (Lovaza) 2 gm PO BID [facility] Last Admin: 02/24/18 10:26 Dose: Not Given - Labs Labs: 02/24/18 05:30 02/24/18 05:30 PT 10.4 Seconds (9.8-13.1) 02/22/18 10:22 INR 0.9 (0.9-1.2) 02/22/18 10:22 APTT 26.2 Seconds (25.6-37.1) 02/22/18 10:22 - Constitutional Appears: No Acute Distress - Head Exam Head Exam: NORMAL INSPECTION - Eye Exam Eye Exam: PERRL - ENT Exam ENT Exam: Normal Exam - Neck Exam Neck Exam: Normal Inspection - Respiratory Exam Respiratory Exam: Clear to Ausculation Bilateral - Cardiovascular Exam Cardiovascular Exam: REGULAR RHYTHM - GI/Abdominal Exam GI & Abdominal Exam: Soft, Tenderness (mild), Normal Bowel Sounds - Extremities Exam Extremities Exam: Normal Inspection - Back Exam Back Exam: NORMAL INSPECTION - Neurological Exam Neurological Exam: Alert, Oriented x3, Reflexes Normal - Psychiatric Exam Psychiatric exam: Anxious, Depressed - Skin Skin Exam: Warm Assessment and Plan (1) Abdominal pain Status: Acute (2) Hyperglycemia Status: Acute (3) Diabetes mellitus Status: Chronic (4) High triglycerides Status: Chronic (5) Hypertension Status: Chronic (6) Lung nodule Status: Chronic (7) Head ache Status: Acute (8) Anxiety and depression Status: Chronic
[2018-02-24] MEDS: Apap-Butalbital-Caffeine 325-50-40mg Tab PO PRN (15:16)
[2018-02-24] MEDS ORDERED: Insulin Detemir 100 Units/ml Inj SC SCH (22:00)
--- NOTE | 2018-02-24 23:17 | PN ---
ENDOCRINOLOGY FOLLOWUP NOTE DATE: LOCATION: In room 418. SUBJECTIVE: This is a 62-year-old female with recent uncontrolled type 2 insulin-requiring diabetes presenting here with diffuse abdominal pain and undergoing GI workup at this time and is now being followed closely for metabolic management. She was previously n.p.o. when underwent upper endoscopy procedure as noted. Today, she has been advanced to a regular diabetic diet as noted. Her glycemic fluctuations have been noted overnight as we have actually withheld the Humalog insulin given meals because of the diet status at this time. Her glucose values today have ranged from 192 to 255 and 272 mg/dL. Her latest chemistry showed a BUN of 10, sodium 141, potassium 4.1, chloride 104, CO2 of 23, glucose 260, and creatinine 0.7. Her hemoglobin A1c is 10.1%, which is quite elevated indicative of suboptimal metabolic control of her diabetic condition. So, at this time, we will resume her more physiologic basal and bolus insulin drug regimen as ordered. We will start her with Humalog given as 8 units subcutaneously t.i.d. before meals to start today as ordered. We will also titrate her Levemir to 30 units subcutaneously at bedtime daily to start tonight. We will modify the coverage scale to obviate hypoglycemia and detailed orders have been given for Humalog coverage scale as ordered. We will obtain serial chemistries and supplement accordingly as needed. We will follow. Melissa Gardner MD
--- NOTE | 2018-02-24 23:24 | CP.PCM.PN ---
Subjective - Date & Time of Evaluation Date of Evaluation: 02/24/18 Time of Evaluation: 14:00 - Subjective Subjective: No further observed bleeding. No drainage via NG. Objective - Vital Signs/Intake and Output Vital Signs (last 24 hours): Temp Pulse Resp BP Pulse Ox 98.8 F 118 H 17 154/79 H 94 L 02/24/18 19:59 02/24/18 19:59 02/24/18 19:59 02/24/18 19:59 02/24/18 19:59 Intake and Output: 02/24/18 02/25/18 18:59 06:59 Intake Total 1010 Output Total 4 Balance 1006 - Medications Medications: Current Medications Acetaminophen/Butalbital/Caffeine (Fioricet) 2 tab PO Q4 PRN PRN Reason: Headache Last Admin: 02/24/18 15:16 Dose: 2 tab Amlodipine Besylate (Norvasc) 10 mg PO DAILY [facility] Last Admin: 02/24/18 10:28 Dose: 10 mg Dextrose (Dextrose 50% Inj) 0 ml IV STAT PRN; Protocol PRN Reason: Hypoglycemia Protocol Dextrose (Glutose 15) 0 gm PO ONCE PRN; Protocol PRN Reason: Hypoglycemia Protocol Diazepam (Valium) 10 mg PO HS [facility] Last Admin: 02/24/18 22:29 Dose: 10 mg Escitalopram Oxalate (Lexapro) 10 mg PO DAILY [facility] Last Admin: 02/24/18 15:15 Dose: 10 mg Glucagon (Glucagen Diagnostic Kit) 0 mg IM STAT PRN; Protocol PRN Reason: Hypoglycemia Protocol Hydroxyzine Pamoate (Vistaril) 25 mg PO TID [facility] Last Admin: 02/24/18 18:05 Dose: Not Given Insulin Detemir (Levemir) 30 units SC HS [facility] Last Admin: 02/24/18 22:31 Dose: 30 u Insulin Human Lispro (Humalog) 8 units SC AC [facility] Last Admin: 02/24/18 18:00 Dose: 8 units Insulin Human Lispro (Humalog) 0 units SC ACHS [facility] Last Admin: 02/24/18 22:32 Dose: 3 units Metoprolol Succinate (Toprol Xl) 25 mg PO DAILY [facility] Last Admin: 02/24/18 10:29 Dose: 25 mg Gedbq-4-Skux Ethyl Esters (Lovaza) 2 gm PO BID [facility] Last Admin: 02/24/18 18:04 Dose: 2 gm - Labs Labs: 02/24/18 05:30 02/24/18 05:30 PT 10.4 Seconds (9.8-13.1) 02/22/18 10:22 INR 0.9 (0.9-1.2) 02/22/18 10:22 APTT 26.2 Seconds (25.6-37.1) 02/22/18 10:22 - Head Exam Head Exam: ATRAUMATIC - Eye Exam Eye Exam: Normal appearance - ENT Exam ENT Exam: Mucous Membranes Moist - Neck Exam Neck Exam: Full ROM - Respiratory Exam Respiratory Exam: Clear to Ausculation Bilateral, NORMAL BREATHING PATTERN - Cardiovascular Exam Cardiovascular Exam: REGULAR RHYTHM, +S1, +S2 - GI/Abdominal Exam GI & Abdominal Exam: Distended, Soft, Normal Bowel Sounds Assessment and Plan (1) Abdominal pain Status: Acute (2) Nausea & vomiting Assessment & Plan: Clinically better. No more coffee grounds emesis. Will pull NG and advance diet. Family at this ppoint prefer not to have her uundergo endoscopy. Status: Acute
[2018-02-25] MEDS: Insulin Lispro (humaLOG) 100 Units/ml Inj SC SCH ×7 (06:43→22:10)
[2018-02-25] MEDS: Metoprolol Succinate 25 mg XL Tab PO SCH (09:47)
[2018-02-25] MEDS: Omega-3-Acid Ethyl Esters 1 GM Cap PO SCH ×2 (09:47→17:22)
[2018-02-25] MEDS: Apap-Butalbital-Caffeine 325-50-40mg Tab PO PRN ×3 (10:27→23:05)
--- NOTE | 2018-02-25 17:00 | CP.PCM.PN ---
Subjective - Date & Time of Evaluation Date of Evaluation: 02/25/18 Time of Evaluation: 16:30 - Subjective Subjective: no AD , N/C Objective - Vital Signs/Intake and Output Vital Signs (last 24 hours): Temp Pulse Resp BP Pulse Ox 98.2 F 102 H 20 171/97 H 97 02/25/18 16:13 02/25/18 16:13 02/25/18 16:13 02/25/18 16:13 02/25/18 16:13 - Medications Medications: Current Medications Acetaminophen/Butalbital/Caffeine (Fioricet) 2 tab PO Q4 PRN PRN Reason: Headache Last Admin: 02/25/18 10:27 Dose: 2 tab Amlodipine Besylate (Norvasc) 10 mg PO DAILY [facility] Last Admin: 02/25/18 09:47 Dose: 10 mg Dextrose (Dextrose 50% Inj) 0 ml IV STAT PRN; Protocol PRN Reason: Hypoglycemia Protocol Dextrose (Glutose 15) 0 gm PO ONCE PRN; Protocol PRN Reason: Hypoglycemia Protocol Diazepam (Valium) 10 mg PO HS [facility] Last Admin: 02/24/18 22:29 Dose: 10 mg Escitalopram Oxalate (Lexapro) 10 mg PO DAILY [facility] Last Admin: 02/25/18 09:48 Dose: 10 mg Glucagon (Glucagen Diagnostic Kit) 0 mg IM STAT PRN; Protocol PRN Reason: Hypoglycemia Protocol Hydroxyzine Pamoate (Vistaril) 25 mg PO TID [facility] Last Admin: 02/25/18 12:33 Dose: 25 mg Insulin Detemir (Levemir) 40 units SC HS [facility] Insulin Human Lispro (Humalog) 0 units SC ACHS [facility] Last Admin: 02/25/18 12:32 Dose: 4 units Insulin Human Lispro (Humalog) 14 units SC AC [facility] Lisinopril (Zestril) 20 mg PO DAILY [facility] Last Admin: 02/25/18 15:21 Dose: 20 mg Metoprolol Tartrate (Lopressor) 50 mg PO BID [facility] Ouqpt-0-Okgo Ethyl Esters (Lovaza) 2 gm PO BID [facility] Last Admin: 02/25/18 09:47 Dose: 2 gm Valsartan (Diovan) 320 mg PO DAILY [facility] - Labs Labs: 02/24/18 05:30 02/24/18 05:30 PT 10.4 Seconds (9.8-13.1) 04/10/18 10:22 INR 0.9 (0.9-1.2) 02/22/18 10:22 APTT 26.2 Seconds (25.6-37.1) 02/22/18 10:22 - Constitutional Appears: No Acute Distress - Head Exam Head Exam: NORMAL INSPECTION - Eye Exam Eye Exam: PERRL - ENT Exam ENT Exam: Normal Exam - Neck Exam Neck Exam: Normal Inspection - Respiratory Exam Respiratory Exam: Clear to Ausculation Bilateral - Cardiovascular Exam Cardiovascular Exam: REGULAR RHYTHM - GI/Abdominal Exam GI & Abdominal Exam: Tenderness (mild), Normal Bowel Sounds - Extremities Exam Extremities Exam: Normal Inspection - Back Exam Back Exam: NORMAL INSPECTION - Neurological Exam Neurological Exam: Alert, Oriented x3, Reflexes Normal - Psychiatric Exam Psychiatric exam: Anxious, Depressed - Skin Skin Exam: Warm Assessment and Plan (1) Abdominal pain Status: Acute (2) Hyperglycemia Status: Acute (3) Diabetes mellitus Status: Chronic (4) High triglycerides Status: Chronic (5) Hypertension Status: Chronic (6) Lung nodule Status: Chronic (7) Head ache Status: Acute (8) Anxiety and depression Status: Chronic - Assessment and Plan (Free Text) Plan: blood pressure elevated , discharge cancelled , increase Lopressor , continue Norvasc , add Rashi , f.u BP in am , continue rest of treatment
[2018-02-25] MEDS ORDERED: Insulin Detemir 100 Units/ml Inj SC SCH (22:00)
--- NOTE | 2018-02-26 02:15 | PN ---
DATE: ENDOCRINOLOGY FOLLOWUP NOTE LOCATION: Room number 418. SUBJECTIVE: This is a 62-year-old female with recent uncontrolled type 2 insulin-requiring diabetes presenting here with diffuse abdominal pain and underwent GI workup with upper endoscopy as noted. She has since then been switched over from a liquid diet to a solid food at this time which she is tolerating fairly well as noted. Supervening hyperglycemic levels have overnight and the glucose values have ranged from 328 to 359 mg/dL today as noted. Her glucose level was 332 at bedtime last night. LABORATORY DATA: The latest chemistry showed a BUN of 10, sodium of 141, potassium of 4.1, chloride of 104, CO2 of 23, glucose of 260 and creatinine of 0.7. Her hemoglobin A1c is extremely elevated at 10.1% which is quite indicative of suboptimal metabolic control with diabetic condition despite a very hefty basal and bolus insulin regimen as given. ASSESSMENT AND PLAN: So at this time, we will modify once again her basal and bolus insulin regimen and increase the Humalog to 14 units subcutaneously t.i.d. before meals to start today as ordered. We will also increase the Levemir to 40 units subcutaneously at bedtime daily to start tonight. She has tremendous increased insulin resistance thereof as noted. We will continue the low-dose correction scale using Humalog insulin as given. We will follow and advise accordingly. Melissa Gardner MD
[2018-02-26 08:19] LABS: BASO # 0.1 K/uL (0.0-0.2); BASO % 1.2 % (0.0-2.0); EOS # 0.5 K/uL (0.0-0.7); EOS % 7.9 % (0.0-4.0); HEMOGLOBIN 12.1 g/dL (12.0-16.0); LYMPH # 2.3 K/uL (1.0-4.3); LYMPH % 37.4 % (20.0-40.0); MEAN CELL VOLUME 84.8 fl (81.0-99.0); MEAN CORPUSCULAR HEMOGLOBIN 28.2 pg (27.0-31.0); MEAN CORPUSCULAR HGB CONC 33.2 g/dL (33.0-37.0); MEAN PLATELET VOLUME 7.4 fl (7.2-11.7); MONO # 0.5 K/uL (0.0-0.8); NEUT # 2.7 K/uL (1.8-7.0); NEUT % 44.5 % (50.0-75.0); NRBC % 0.1 % (0.0-0.0); RBC 4.28 Mil/uL (3.80-5.20); WHITE BLOOD COUNT 6.1 K/uL (4.8-10.8)
[2018-02-26 09:05] LABS: ALB/GLOB RATIO 0.9 (1.0-2.1); ALBUMIN 3.3 g/dL (3.5-5.0); ALT/SGPT 42 U/L (9-52); AST/SGOT 34 U/L (14-36); BLOOD UREA NITROGEN 27 mg/dl (7-17); GFR AFRICAN-AMERICAN > 60; GFR NON-AFRICAN AMERICAN > 60
[2018-02-26] MEDS: Apap-Butalbital-Caffeine 325-50-40mg Tab PO PRN ×2 (09:22→16:57)
[2018-02-26] MEDS: Insulin Lispro (humaLOG) 100 Units/ml Inj SC SCH ×6 (09:23→22:30)
[2018-02-26] MEDS: Omega-3-Acid Ethyl Esters 1 GM Cap PO SCH ×2 (09:25→16:53)
--- NOTE | 2018-02-26 13:49 | CP.PCM.PN ---
Subjective - Date & Time of Evaluation Date of Evaluation: 02/26/18 Time of Evaluation: 13:10 - Subjective Subjective: F/U Abdominal pain. No AD, N/C now, no SOB, no C/P. Fioricet given for headache earlier. Objective - Vital Signs/Intake and Output Vital Signs (last 24 hours): Temp Pulse Resp BP Pulse Ox 98.3 F 83 18 159/87 H 97 02/26/18 12:57 02/26/18 12:57 02/26/18 12:57 02/26/18 12:57 02/26/18 12:57 - Medications Medications: Current Medications Acetaminophen/Butalbital/Caffeine (Fioricet) 2 tab PO Q4 PRN PRN Reason: Headache Last Admin: 02/26/18 09:22 Dose: 2 tab Amlodipine Besylate (Norvasc) 10 mg PO DAILY [facility] Last Admin: 02/26/18 09:25 Dose: 10 mg Dextrose (Dextrose 50% Inj) 0 ml IV STAT PRN; Protocol PRN Reason: Hypoglycemia Protocol Dextrose (Glutose 15) 0 gm PO ONCE PRN; Protocol PRN Reason: Hypoglycemia Protocol Diazepam (Valium) 10 mg PO HS [facility] Last Admin: 02/25/18 22:08 Dose: 10 mg Escitalopram Oxalate (Lexapro) 10 mg PO DAILY [facility] Last Admin: 02/26/18 09:24 Dose: 10 mg Glucagon (Glucagen Diagnostic Kit) 0 mg IM STAT PRN; Protocol PRN Reason: Hypoglycemia Protocol Hydroxyzine Pamoate (Vistaril) 25 mg PO TID [facility] Last Admin: 02/26/18 12:10 Dose: 25 mg Insulin Detemir (Levemir) 50 units SC HS [facility] Insulin Human Lispro (Humalog) 0 units SC ACHS [facility] Last Admin: 02/26/18 12:11 Dose: 3 units Insulin Human Lispro (Humalog) 20 units SC AC [facility] Lisinopril (Zestril) 20 mg PO DAILY [facility] Last Admin: 02/26/18 09:26 Dose: 20 mg Metoprolol Tartrate (Lopressor) 50 mg PO BID [facility] Last Admin: 02/26/18 09:25 Dose: 50 mg Hiies-1-Xbey Ethyl Esters (Lovaza) 2 gm PO BID [facility] Last Admin: 02/26/18 09:25 Dose: 2 gm Valsartan (Diovan) 320 mg PO DAILY [facility] Last Admin: 02/26/18 09:23 Dose: 320 mg - Labs Labs: 02/26/18 06:25 02/26/18 06:25 PT 10.4 Seconds (9.8-13.1) 02/22/18 10:22 INR 0.9 (0.9-1.2) 02/22/18 10:22 APTT 26.2 Seconds (25.6-37.1) 02/22/18 10:22 - Constitutional Appears: No Acute Distress - Head Exam Head Exam: NORMAL INSPECTION - Eye Exam Eye Exam: PERRL - ENT Exam ENT Exam: Normal Exam - Neck Exam Neck Exam: Normal Inspection - Respiratory Exam Respiratory Exam: Clear to Ausculation Bilateral - Cardiovascular Exam Cardiovascular Exam: REGULAR RHYTHM - GI/Abdominal Exam GI & Abdominal Exam: Soft, Normal Bowel Sounds - Extremities Exam Extremities Exam: Normal Inspection - Back Exam Back Exam: NORMAL INSPECTION - Neurological Exam Neurological Exam: Alert, Oriented x3, Reflexes Normal - Psychiatric Exam Psychiatric exam: Anxious, Depressed - Skin Skin Exam: Warm Assessment and Plan (1) Abdominal pain Status: Acute (2) Hyperglycemia Status: Acute (3) Diabetes mellitus Status: Chronic (4) High triglycerides Status: Chronic (5) Hypertension Status: Chronic (6) Lung nodule Status: Chronic (7) Head ache Status: Acute (8) Anxiety and depression Status: Chronic - Assessment and Plan (Free Text) Plan: BP elevated testerday , improved with Diovan , Lopressor increased dosis , BS elevated on current Insulin regimen Levemir , Humalog , f/u Endodrine law firm consultant
[2018-02-26] MEDS ORDERED: Insulin Lispro (humaLOG) 100 Units/ml Inj SC SCH (16:30)
--- NOTE | 2018-02-26 18:48 | PN ---
ENDOCRINOLOGY FOLLOWUP NOTE DATE: LOCATION: In room 418, bed 2. SUBJECTIVE: This is a 62-year-old female with recent uncontrolled type 2 insulin-requiring diabetes, presenting here with diffuse abdominal pain and underwent an upper endoscopy and full GI workup and is now being advance to solid food as noted. She also has marked insulin resistance with tremendous glycemic accelerations as noted thereof, despite a high dose insulin regimen given. Her latest glucose levels have ranged from 203 to 263 and 317 mg/dL. Her latest chemistry showed BUN of 27, sodium of 143, potassium of 4.2, chloride of 106, CO2 of 21, glucose of 246, and creatinine of 0.9. So, at this time, we will modify once again her basal and bolus insulin regimen and increase the Humalog to 30 units subcutaneously t.i.d. before meals to start today. We will also increase her Lantus given as Levemir here in the hospital to 60 units subcutaneously at bedtime daily to start tonight. We will titrate incrementally as indicated to optimize metabolic control. We will actually be considering the initiation of the outpatient different time of insulin, which is actually a very high dose insulin regimen called Humulin R U-500 tremendous insulin resistance thereof. We will follow. Melissa Gardner MD
[2018-02-26] MEDS ORDERED: Insulin Detemir 100 Units/ml Inj SC SCH (22:00)
[2018-02-26] MEDS: Insulin Detemir 100 Units/ml Inj SC SCH (22:25)
[2018-02-27] MEDS: Insulin Lispro (humaLOG) 100 Units/ml Inj SC SCH ×8 (06:39→22:00)
[2018-02-27] MEDS: Apap-Butalbital-Caffeine 325-50-40mg Tab PO PRN ×2 (09:05→15:09)
[2018-02-27] MEDS: Omega-3-Acid Ethyl Esters 1 GM Cap PO SCH ×2 (09:06→17:33)
--- NOTE | 2018-02-27 12:00 | PN ---
DATE: ENDO FOLLOWUP NOTE LOCATION: Room 418. SUBJECTIVE: This is a 62-year-old female with recent uncontrolled type 2 insulin-requiring diabetes, now being followed closely for metabolic management. Her glycemic levels are fluctuating, but much improved at this time and the latest glucose levels overnight have ranged from 165 mg/dL to 267 mg/dL. Her latest chemistry showed BUN of 27, sodium of 143, potassium of 4.2, chloride of 106, CO2 of 21, glucose of 246, and creatinine of 0.9. Her hemoglobin A1c was reported as 10.1%, which is clearly elevated and indicative of suboptimal metabolic control of her diabetic condition. So at this time, we will modify the current insulin regimen and increase the Humalog to 30 units subcu t.i.d. before meals as ordered. We will also increase the Levemir to 60 units subcu at bedtime daily as given. We will titrate incrementally as indicated to optimize metabolic control. We will add Januvia given as 100 mg once daily as ordered. Moreover, we will also add metformin given as 850 mg b.i.d. both oral hypoglycemic therapy being given to hopefully reduce insulin resistance and lower her insulin requirements thereof. We will obtain serial chemistries and supplement accordingly as needed. We will follow and advice accordingly. Melissa Gardner MD
--- NOTE | 2018-02-27 18:34 | CP.PCM.PN ---
Subjective - Date & Time of Evaluation Date of Evaluation: 02/27/18 Time of Evaluation: 13:20 - Subjective Subjective: F/U Abdominal pain no AD , N/C , no abdominal pain Objective - Vital Signs/Intake and Output Vital Signs (last 24 hours): Temp Pulse Resp BP Pulse Ox 98 F 84 20 162/96 H 95 02/27/18 16:14 02/27/18 17:32 02/27/18 16:14 02/27/18 17:32 02/27/18 16:14 - Medications Medications: Current Medications Acetaminophen/Butalbital/Caffeine (Fioricet) 2 tab PO Q4 PRN PRN Reason: Headache Last Admin: 02/27/18 15:09 Dose: 2 tab Amlodipine Besylate (Norvasc) 10 mg PO DAILY [facility] Last Admin: 02/27/18 09:07 Dose: 10 mg Dextrose (Dextrose 50% Inj) 0 ml IV STAT PRN; Protocol PRN Reason: Hypoglycemia Protocol Dextrose (Glutose 15) 0 gm PO ONCE PRN; Protocol PRN Reason: Hypoglycemia Protocol Diazepam (Valium) 10 mg PO [facility] Last Admin: 02/26/18 22:23 Dose: Not Given Diphenhydramine HCl (Benadryl) 25 mg PO Q8 PRN PRN Reason: Allergy symptoms Last Admin: 02/27/18 17:30 Dose: 25 mg Escitalopram Oxalate (Lexapro) 10 mg PO DAILY [facility] Last Admin: 02/27/18 09:07 Dose: 10 mg Glucagon (Glucagen Diagnostic Kit) 0 mg IM STAT PRN; Protocol PRN Reason: Hypoglycemia Protocol Hydroxyzine Pamoate (Vistaril) 25 mg PO TID [facility] Last Admin: 02/27/18 17:32 Dose: 25 mg Insulin Detemir (Levemir) 60 units SC HS [facility] Last Admin: 02/26/18 22:25 Dose: 60 units Insulin Human Lispro (Humalog) 0 units SC ACHS [facility] Last Admin: 02/27/18 17:30 Dose: Not Given Insulin Human Lispro (Humalog) 30 units SC TID [facility] Last Admin: 02/27/18 17:31 Dose: 30 units Lisinopril (Zestril) 20 mg PO DAILY [facility] Last Admin: 02/27/18 09:08 Dose: 20 mg Loratadine (Claritin) 10 mg PO DAILY [facility] Last Admin: 02/27/18 11:53 Dose: 10 mg Metformin HCl (Glucophage) 850 mg PO BIDWM [facility] Last Admin: 02/27/18 17:31 Dose: 850 mg Metoprolol Tartrate (Lopressor) 50 mg PO BID [facility] Last Admin: 02/27/18 17:32 Dose: 50 mg Reqas-8-Nlua Ethyl Esters (Lovaza) 2 gm PO BID [facility] Last Admin: 02/27/18 17:33 Dose: 2 gm Sitagliptin Phosphate (Januvia) 100 mg PO DAILY [facility] Valsartan (Diovan) 320 mg PO DAILY [facility] Last Admin: 02/27/18 10:01 Dose: 320 mg - Labs Labs: 02/26/18 06:25 02/26/18 06:25 PT 10.4 Seconds (9.8-13.1) 02/22/18 10:22 INR 0.9 (0.9-1.2) 02/22/18 10:22 APTT 26.2 Seconds (25.6-37.1) 02/22/18 10:22 - Constitutional Appears: No Acute Distress - Head Exam Head Exam: NORMAL INSPECTION - Eye Exam Eye Exam: PERRL - ENT Exam ENT Exam: Normal Exam - Neck Exam Neck Exam: Normal Inspection - Respiratory Exam Respiratory Exam: Clear to Ausculation Bilateral - Cardiovascular Exam Cardiovascular Exam: REGULAR RHYTHM - GI/Abdominal Exam GI & Abdominal Exam: Soft, Normal Bowel Sounds - Extremities Exam Extremities Exam: Normal Inspection - Back Exam Back Exam: NORMAL INSPECTION - Neurological Exam Neurological Exam: Alert, Oriented x3, Reflexes Normal - Psychiatric Exam Psychiatric exam: Anxious, Depressed - Skin Skin Exam: Warm Assessment and Plan (1) Abdominal pain Status: Resolved (2) Hyperglycemia Status: Acute (3) Diabetes mellitus Status: Chronic (4) High triglycerides Status: Chronic (5) Hypertension Status: Chronic (6) Lung nodule Status: Chronic (7) Head ache Status: Acute (8) Anxiety and depression Status: Chronic - Assessment and Plan (Free Text) Plan: Bs better control , Levemir , Humalog dosis increased by Endocrine practice management consultant , BP better controlled
[2018-02-27] MEDS: Insulin Detemir 100 Units/ml Inj SC SCH (21:37)
[2018-02-28 06:06] LABS: BLOOD UREA NITROGEN 28 mg/dl (7-17); CALCIUM 9.2 mg/dL (8.4-10.2); GFR AFRICAN-AMERICAN > 60; GFR NON-AFRICAN AMERICAN > 60
[2018-02-28] MEDS: Insulin Lispro (humaLOG) 100 Units/ml Inj SC SCH ×4 (06:37→13:31)
[2018-02-28 08:27] VITALS: RESP 20
[2018-02-28] MEDS: Omega-3-Acid Ethyl Esters 1 GM Cap PO SCH (08:49)
[2018-02-28 13:06] VITALS: BP 146/83; PULSE 78; TEMP 98.3; O2SAT 96
--- NOTE | 2018-02-28 14:22 | CP.PCM.DIS ---
Provider - Provider Date of Admission: 02/22/18 18:22 Attending physician: Johnnie Nice MD Diagnosis - Discharge Diagnosis (1) Abdominal pain Status: Resolved Priority: High (2) Hyperglycemia Status: Acute Priority: High (3) Diabetes mellitus Status: Chronic Priority: High (4) High triglycerides Status: Chronic Priority: High (5) Hypertension Status: Chronic Priority: High (6) Lung nodule Status: Chronic Priority: Medium (7) Head ache Status: Acute Priority: High (8) Anxiety and depression Status: Chronic Priority: High Hospital Course - Lab Results Lab Results: Most Recent Lab Values WBC 6.1 K/uL (4.8-10.8) 02/26/18 06:25 RBC 4.28 Mil/uL (3.80-5.20) 02/26/18 06:25 Hgb 12.1 g/dL (12.0-16.0) 02/26/18 06:25 Hct 36.3 % (34.0-47.0) 02/26/18 06:25 MCV 84.8 fl (81.0-99.0) 02/26/18 06:25 MCH 28.2 pg (27.0-31.0) 02/26/18 06:25 MCHC 33.2 g/dL (33.0-37.0) 02/26/18 06:25 RDW 13.0 % (11.5-14.5) 02/26/18 06:25 Plt Count 253 K/uL (130-400) 02/26/18 06:25 MPV 7.4 fl (7.2-11.7) 02/26/18 06:25 Neut % (Auto) 44.5 % (50.0-75.0) L 02/26/18 06:25 Lymph % (Auto) 37.4 % (20.0-40.0) 02/26/18 06:25 [place] % (Auto) 9.0 % (0.0-10.0) 02/26/18 06:25 Eos % (Auto) 7.9 % (0.0-4.0) H 02/26/18 06:25 Baso % (Auto) 1.2 % (0.0-2.0) 02/26/18 06:25 Neut # (Auto) 2.7 K/uL (1.8-7.0) 02/26/18 06:25 Lymph # (Auto) 2.3 K/uL (1.0-4.3) 02/26/18 06:25 [place] # (Auto) 0.5 K/uL (0.0-0.8) 02/26/18 06:25 Eos # (Auto) 0.5 K/uL (0.0-0.7) 02/26/18 06:25 Baso # (Auto) 0.1 K/uL (0.0-0.2) 02/26/18 06:25 PT 10.4 Seconds (9.8-13.1) 02/22/18 10: INR 0.9 (0.9-1.2) 02/22/18 10: APTT 26.2 Seconds (25.6-37.1) 02/22/18 10: D-Dimer, Quantitative 634 ng/mlDDU (0-230) H 02/22/18 17:48 pCO2 36 mm/Hg (35-45) 02/22/18 20:15 pO2 75 mm/Hg (80-100) L 02/22/18 20:15 HCO3 21.8 mmol/L (21-28) 02/22/18 20:15 ABG pH 7.37 (7.35-7.45) 02/22/18 20:15 ABG Total CO2 21.9 mmol/L (22-28) L 02/22/18 20:15 ABG O2 Saturation 98.8 % (95-98) H 02/22/18 20:15 ABG O2 Content 16.0 ML/dL (15-23) 02/22/18 20:15 ABG Base Excess -3.9 mmol/L (-2.0-3.0) L 02/22/18 20:15 ABG Hemoglobin 12.0 g/dL (11.7-17.4) 02/22/18 20:15 ABG Carboxyhemoglobin 2.2 % (0.5-1.5) H 02/22/18 20:15 POC ABG HHb (Measured) 1.1 % (0.0-5.0) 02/22/18 20:15 ABG Methemoglobin 2.4 % (0.0-3.0) 02/22/18 20:15 ABG O2 Capacity 16.2 mL/dL (16-24) 02/22/18 20:15 Jamey Test Yes 02/22/18 20:15 A-a O2 Difference 30.0 mm/Hg 02/22/18 20:15 Hgb O2 Saturation 94.4 % (95.0-98.0) L 02/22/18 20:15 Vent Mode Room air 02/22/18 20:15 FiO2 21.0 % 02/22/18 20:15 Sodium 144 mmol/l (132-148) 02/28/18 04:20 Potassium 3.7 MMOL/L (3.6-5.0) 02/28/18 04:20 Chloride 111 mmol/L (98-107) H 02/28/18 04:20 Carbon Dioxide 18 mmol/L (22-30) L 02/28/18 04:20 Anion Gap 19 (10-20) 02/28/18 04:20 BUN 28 mg/dl (7-17) H 02/28/18 04:20 Creatinine 0.8 mg/dl (0.7-1.2) 02/28/18 04:20 Est GFR ( Amer) > 60 02/28/18 04:20 Est GFR (Non-Af Amer) > 60 02/28/18 04:20 POC Glucose (mg/dL) 157 mg/dL (65-110) H 02/28/18 11:39 Random Glucose 199 mg/dL (65-105) H 02/28/18 04:20 Hemoglobin A1c 10.1 % (4.2-6.5) H 02/23/18 04:25 Calcium 9.2 mg/dL (8.4-10.2) 02/28/18 04:20 Total Bilirubin 0.2 mg/dl (0.2-1.3) 02/26/18 06:25 AST 34 U/L (14-36) 02/26/18 06:25 ALT 42 U/L (9-52) 02/26/18 06:25 Alkaline Phosphatase 97 U/L (38-126) 02/26/18 06:25 Troponin I < 0.0120 ng/mL (0.00-0.120) 02/22/18 17:48 NT-Pro-B Natriuret Pep 29.9 pg/ml (0-900) 02/22/18 17:48 Total Protein 7.0 G/DL (6.3-8.2) 02/26/18 06:25 Albumin 3.3 g/dL (3.5-5.0) L 02/26/18 06:25 Globulin 3.6 gm/dL (2.2-3.9) 02/26/18 06:25 Albumin/Globulin Ratio 0.9 (1.0-2.1) L 02/26/18 06:25 Triglycerides 541 mg/DL (0-149) H D 02/24/18 05:30 Cholesterol 187 mg/dL (0-199) 02/24/18 05:30 LDL Cholesterol Direct 73 mg/dL (0-129) 02/24/18 05:30 HDL Cholesterol 28 MG/DL (30-70) L 02/24/18 05:30 Lipase 157 U/L (23-300) 02/22/18 10:22 Thyroxine (T4) 6.56 ug/dl (5.5-11.0) 02/23/18 04:25 TSH 3rd Generation 4.45 mIU/ML (0.46-4.68) 02/23/18 04:25 Urine Color Straw (YELLOW) 02/22/18 12:12 Urine Clarity Clear (Clear) 02/22/18 12:12 Urine pH 6.0 (5.0-8.0) 02/22/18 12:12 Ur Specific [place] 1.010 (1.003-1.030) 02/22/18 12:12 Urine Protein 100 mg/dL (NEGATIVE) 02/22/18 12:12 Urine Glucose (UA) >=500 mg/dL (Normal) 02/22/18 12:12 Urine Ketones Negative mg/dL (NEGATIVE) 02/22/18 12:12 Urine Blood Negative (NEGATIVE) 02/22/18 12:12 Urine Nitrate Negative (NEGATIVE) 02/22/18 12:12 Urine Bilirubin Negative (NEGATIVE) 02/22/18 12:12 Urine Urobilinogen 0.2-1.0 mg/dL (0.2-1.0) 02/22/18 12:12 Ur Leukocyte Esterase Neg Justin/uL (Negative) 02/22/18 12:12 Urine RBC (Auto) 3 /hpf (0-3) 02/22/18 12:12 Urine Microscopic WBC 1 /hpf (0-5) 02/22/18 12:12 Discharge Exam - Head Exam Head Exam: NORMAL INSPECTION Discharge Plan - Discharge Medications Prescriptions: Valsartan [Diovan] 320 mg PO DAILY #30 tab metFORMIN [glucOPHAGE] 850 mg PO BIDWM #60 tab Insulin Lispro [Humalog (Insulin Lispro)] 30 unit SQ TID #10 cartridge SITagliptin [Januvia] 100 mg PO DAILY #60 tab Metoprolol Tartrate [Lopressor] 50 mg PO BID #60 tab amLODIPine [Norvasc] 10 mg PO DAILY #30 tab - Follow Up Plan Condition: STABLE Disposition: HOME/ ROUTINE Instructions: Diverticulosis (DC), Tachycardia (DC) Additional Instructions: follow up with pmd in 1 week Referrals: Melissa Gardner MD [Medical Doctor] - Johnnie Nice MD [Staff Provider] - Jeb Roth MD [Family Provider] - Harrison Rice MD [Staff Provider] -
--- NOTE | 2018-03-01 09:06 | PN ---
ENDOCRINOLOGY FOLLOWUP NOTE DATE: OCATION: Room 418. SUBJECTIVE: This is a 62-year-old female with recent uncontrolled type 2 insulin-requiring diabetes now being followed closely for metabolic management. Her glycemic levels are fluctuating but much improved at this time and the latest glucose levels have ranged today from 157-201 mg/dL. It was 110 at bedtime last night. Today's chemistry showed a BUN of 28, sodium 144, potassium 3.7, chloride 111, CO2 of 18, glucose 199 and creatinine 0.8. So at this time, we will continue the same modified basal and bolus insulin regimen as given with Humalog given as 30 units subcu t.i.d. before meals as ordered. We will continue also the Levemir given as basal insulin at 60 units subcu at bedtime daily as given. We will titrate incrementally as indicated to optimize metabolic control. We will also continue the Januvia given as 100 mg daily and metformin as 850 mg b.i.d. with meals as ordered. We will titrate incrementally as indicated to optimize metabolic control. We will actually be giving a combination of the Januvia and metformin for outpatient diabetic management since we do not have it available in the hospital. We will give her Janumet at mg b.i.d. before meals as ordered. She will follow with me in the next 4-6 weeks for ongoing outpatient diabetic management. Melissa Gardner MD
== END 2018-02-28 14:16 | disposition home health service (06) | DRG 182 ==
LOC: H.ER 09:23 → H.ERHOLD 18:22 → OBSVTOIN 18:22 → H.TEL 21:09
PROVIDERS: ADMIT Internal Medicine Pulmonary Disease; ATTEND Internal Medicine Pulmonary Disease
PROC: 0DBN8ZX Excision of Sigmoid Colon, Via Natural or Artificial Opening Endoscopic, Diagnostic (ICD-10-PCS; 2018-02-24)
PROC: 0DBH8ZX Excision of Cecum, Via Natural or Artificial Opening Endoscopic, Diagnostic (ICD-10-PCS; principal; 2018-02-24 14:00)
DX: K57.30 Diverticulosis of large intestine without perforation or abscess without bleeding (principal); E11.65 Type 2 diabetes mellitus with hyperglycemia; K64.8 Other hemorrhoids; K58.0 Irritable bowel syndrome with diarrhea; I11.9 Hypertensive heart disease without heart failure; E78.5 Hyperlipidemia, unspecified; E78.1 Pure hyperglyceridemia; E78.00 Pure hypercholesterolemia, unspecified; F41.1 Generalized anxiety disorder; M15.9 Polyosteoarthritis, unspecified; R91.1 Solitary pulmonary nodule; R51 Headache; Z79.4 Long term (current) use of insulin; Z90.49 Acquired absence of other specified parts of digestive tract

== ENCOUNTER 2018-04-22 12:37 | Inpatient (IN) | payer MEDICAID ==
[2018-04-22] MEDS ORDERED: Sodium Chloride 0.9% 1,000 ML IV STA ×2 (13:06→17:33)
[2018-04-22] MEDS ORDERED: Insulin Regular 100 units/ml IV STA (13:31)
--- NOTE | 2018-04-22 13:34 | ED PDOC ---
HPI: General Adult Time Seen by Provider: 04/22/18 13:01 Chief Complaint (Nursing): Abnormal Labs Chief Complaint (Provider): High blood sugar History Per: Patient, EMS Onset/Duration Of Symptoms: Mins Current Symptoms Are (Timing): Still Present Additional Complaint(s): 62 year old female presents to the ED for evaluation of high blood sugar. Patient had lab work done as outpatient and received call from her senior patrol agent Dr. Gardner, stating that she needs to come to ED secondary to elevated glucose. Upon arrival patient complains of weakness and feeling faint over the last week or 2. She denies any chest pain, shortness of breath or dyspnea on exertion, no fever or chills. Patient states whenever she checks her glucose at home her readings are between 300 and 400 usually. PCP: Dr. Nice Past Medical History Reviewed: Historical Data, Nursing Documentation, Vital Signs Vital Signs: Last Vital Signs Temp 98.1 F 04/22/18 14:30 Pulse 97 H 04/22/18 14:30 Resp 18 04/22/18 14:30 BP 131/75 04/22/18 15:34 Pulse Ox 98 04/22/18 18:01 - Medical History PMH: Arthritis, Depression, Diabetes, HTN, Hypercholesterolemia, Migraine - Surgical History Surgical History: Cholecystectomy, - Family History Family History: States: Diabetes, Hypertension - Living Arrangements Living Arrangements: With Family - Social History Current smoker - smoking cessation education provided: No Alcohol: None Drugs: Denies - Home Medications Home Medications: Ambulatory Orders Medication Instructions Recorded Escitalopram [Lexapro] 10 mg PO DAILY 05/01/15 Acetaminophen/Butalbital/Caf 2 tab PO PRN PRN 02/22/18 [Fioricet] diaZEpam [Valium] 10 mg PO HS 02/22/18 amLODIPine [Norvasc] 10 mg PO DAILY #30 tab 02/25/18 Insulin Detemir [Levemir] 60 units SC HS #5 vial 02/28/18 Insulin Lispro [Humalog (Insulin 30 unit SQ TID #10 cartridge 02/28/18 Lispro)] Metoprolol Tartrate [Lopressor] 50 mg PO BID #60 tab 02/28/18 SITagliptin [Januvia] 100 mg PO DAILY #60 tab 02/28/18 Valsartan [Diovan] 320 mg PO DAILY #30 tab 02/28/18 metFORMIN [glucOPHAGE] 850 mg PO BIDWM #60 tab 02/28/18 - Allergies Allergies/Adverse Reactions: Allergies Allergy/AdvReac Type Severity Reaction Status Date / Time No Known Allergies Allergy Verified 04/22/18 12:49 Review of Systems ROS Statement: Except As Marked, All Systems Reviewed And Found Negative Constitutional: Positive for: Weakness. Negative for: Fever, Chills Cardiovascular: Negative for: Chest Pain Respiratory: Negative for: Cough Gastrointestinal: Negative for: Nausea, Vomiting, Abdominal Pain Neurological: Positive for: Dizziness, Other (feeling faint intermittently) Physical Exam - Reviewed Nursing Documentation Reviewed: Yes Vital Signs Reviewed: Yes - Physical Exam Appears: Positive for: Well, Non-toxic, No Acute Distress Head Exam: Positive for: ATRAUMATIC, NORMOCEPHALIC Skin: Positive for: Normal Color. Negative for: Rash Eye Exam: Positive for: Normal appearance Neck: Positive for: Normal, Painless ROM Cardiovascular/Chest: Positive for: Regular Rate, Rhythm. Negative for: Murmur Respiratory: Positive for: Normal Breath Sounds. Negative for: Wheezing, Respiratory Distress Gastrointestinal/Abdominal: Positive for: Other (obese non-tender abdomen) Back: Positive for: Normal Inspection Extremity: Positive for: Normal ROM Neurologic/Psych: Positive for: Alert, Oriented. Negative for: Motor/Sensory Deficits - Laboratory Results Result Diagrams: 04/22/18 14:13 04/22/18 14:13 Urine dip results: Positive for: Blood, Glucose, Protein. Negative for: Leukocyte Esterase, Nitrate, Ketones, Bilirubin - ECG Interpretation Of ECG: NSR 99 bpm, no acute finding, reviewed by PA and ED attending O2 Sat by Pulse Oximetry: 98 (RA) Pulse Ox Interpretation: Normal - Other Rad CXR X-Ray: Interpreted by Me, Viewed By Me X-Ray Interpretation: no acute finding Medical Decision Making Medical Decision Making: Initial Impression: 62 year old with hyperglycemia Initial Plan: ECG CMP ED urine dipstick CBC Chest X-ray Glucose POC - over 500 upon arrival Insulin 10 units IV Sodium chloride 1000mL IV Case was d/w Dr. Roberson K is 6.4, sample is not hemolyzed. Kayexalate 30 mg PO, albuterol nebulizer and 20 mg IV lasix given. UA negative for ketones, patient is not in DKA. Case was d/w PMD Dr. Nice who states to admit patient to Tele. Patient is aware of and agrees with admission. Repeat glucose after insulin - 334, second bolus given. Scribe Attestation: Documented by Davy Shukla acting as a scribe for Viv ROCA. Provider Scribe Attestation: All medical record entries made by the Scribe were at my direction and personally dictated by me. I have reviewed the chart and agree that the record accurately reflects my personal performance of the history, physical exam, medical decision making, and the department course for this patient. I have also personally directed, reviewed, and agree with the discharge instructions and disposition. Disposition - Clinical Impression Clinical Impression: Hyperglycemia, Hyperkalemia - Patient ED Disposition Is Patient to be Admitted: Yes - Disposition Disposition Time: 21:15 Condition: FAIR - Pt Status Changed To: Hospital Disposition Of: Inpatient - Admit Certification Admit to Inpatient:: After my assessment, the patient will require hospitalization for at least two midnights. This is because of the severity of symptoms shown, intensity of services needed, and/or the medical risk in this patient being treated as an outpatient. - POA Present On Arrival: None Results - Lab Results Lab Results: 04/22/18 04/22/18 04/22/18 15:28 15:18 14:13 WBC RBC Hgb Hct MCV MCH MCHC RDW Plt Count MPV Neut % (Auto) Lymph % (Auto) Lee % (Auto) Eos % (Auto) Baso % (Auto) Neut # (Auto) Lymph # (Auto) Lee # (Auto) Eos # (Auto) Baso # (Auto) pCO2 32 L pO2 78 L HCO3 17.8 L ABG pH 7.31 L ABG Total CO2 17.1 L ABG O2 Saturation 99.3 H ABG O2 Content 14.9 L ABG Base Excess -9.1 L ABG Hemoglobin 11.1 L ABG Carboxyhemoglobin 2.0 H POC ABG HHb (Measured) 0.7 ABG Methemoglobin 2.2 ABG O2 Capacity 15.0 L Jamey Test Yes A-a O2 Difference 32.0 Hgb O2 Saturation 95.1 FiO2 21.0 Sodium 130 L Potassium 6.4 H* Chloride 99 Carbon Dioxide 20 L Anion Gap 17 BUN 29 H Creatinine 1.4 H Est GFR ( Amer) 46 Est GFR (Non-Af Amer) 38 POC Glucose (mg/dL) Random Glucose 563 H* Calcium 8.6 Total Bilirubin 0.4 AST 30 ALT 28 Alkaline Phosphatase 103 Total Protein 6.9 Albumin 3.5 Globulin 3.4 Albumin/Globulin Ratio 1.0 Urine Color Yellow Urine Clarity Slighty-cloudy Urine pH 5.0 Ur Specific [place] 1.023 Urine Protein 100 Urine Glucose (UA) >=500 Urine Ketones Negative Urine Blood Small Urine Nitrate Negative Urine Bilirubin Negative Urine Urobilinogen 0.2-1.0 Ur Leukocyte Esterase Neg Urine RBC (Auto) 7 H Urine Microscopic WBC 2 Ur Squamous Epith Cells 2 Ur Transition Epith Cell 1 Urine Bacteria Rare Hyaline Casts 6-10 H 18 04/22/18 14:13 13:10 WBC 4.3 L RBC 4.07 Hgb 11.3 L Hct 34.6 MCV 84.8 MCH 27.8 MCHC 32.8 L RDW 12.6 Plt Count 221 MPV 8.3 Neut % (Auto) 41.2 L Lymph % (Auto) 41.5 H Lee % (Auto) 11.3 H Eos % (Auto) 5.0 H Baso % (Auto) 1.0 Neut # (Auto) 1.8 Lymph # (Auto) 1.8 Lee # (Auto) 0.5 Eos # (Auto) 0.2 Baso # (Auto) 0.0 pCO2 pO2 HCO3 ABG pH ABG Total CO2 ABG O2 Saturation ABG O2 Content ABG Base Excess ABG Hemoglobin ABG Carboxyhemoglobin POC ABG HHb (Measured) ABG Methemoglobin ABG O2 Capacity Jamey Test A-a O2 Difference Hgb O2 Saturation FiO2 Sodium Potassium Chloride Carbon Dioxide Anion Gap BUN Creatinine Est GFR ( Amer) Est GFR (Non-Af Amer) POC Glucose (mg/dL) > 500 H* Random Glucose Calcium Total Bilirubin AST ALT Alkaline Phosphatase Total Protein Albumin Globulin Albumin/Globulin Ratio Urine Color Urine Clarity Urine pH Ur Specific [place] Urine Protein Urine Glucose (UA) Urine Ketones Urine Blood Urine Nitrate Urine Bilirubin Urine Urobilinogen Ur Leukocyte Esterase Urine RBC (Auto) Urine Microscopic WBC Ur Squamous Epith Cells Ur Transition Epith Cell Urine Bacteria Hyaline Casts
--- NOTE | 2018-04-22 14:10 | CARD ---
APPROVED REPORT EKG Measurement Heart [id number] <Conclusion> Normal sinus rhythm Normal ECG
[2018-04-22] MEDS ORDERED: Insulin Regular 100 units/ml ONE (14:29)
--- NOTE | 2018-04-22 14:45 | RAD ---
HISTORY: clearance COMPARISON: Comparison chest 02/22/2018 TECHNIQUE: Chest PA and lateral FINDINGS: LUNGS: Mild atelectasis and or scarring changes left lung base. Minimal right basilar atelectasis. PLEURA: No significant pleural effusion identified. No pneumothorax apparent. CARDIOVASCULAR: Normal. OSSEOUS STRUCTURES: No significant abnormalities. VISUALIZED UPPER ABDOMEN: Normal. OTHER FINDINGS: None. IMPRESSION: Mild atelectasis and or scarring changes left lung base. Minimal right basilar atelectasis.
[2018-04-22 14:47] LABS: ALBUMIN 3.5 g/dL (3.5-5.0); CALCIUM 8.6 mg/dL (8.4-10.2)
[2018-04-22 14:49] LABS: EOS # 0.2 K/uL (0.0-0.7); HEMOGLOBIN 11.3 g/dL (12.0-16.0); LYMPH # 1.8 K/uL (1.0-4.3); LYMPH % 41.5 % (20.0-40.0); MEAN CELL VOLUME 84.8 fl (81.0-99.0); MEAN CORPUSCULAR HEMOGLOBIN 27.8 pg (27.0-31.0); MEAN CORPUSCULAR HGB CONC 32.8 g/dL (33.0-37.0); MEAN PLATELET VOLUME 8.3 fl (7.2-11.7); MONO # 0.5 K/uL (0.0-0.8); MONO % 11.3 % (0.0-10.0); NEUT # 1.8 K/uL (1.8-7.0); NEUT % 41.2 % (50.0-75.0); NRBC % 0.1 % (0.0-0.0); RBC 4.07 Mil/uL (3.80-5.20); RED CELL DISTRIBUTION WIDTH 12.6 % (11.5-14.5); WHITE BLOOD COUNT 4.3 K/uL (4.8-10.8)
[2018-04-22] MEDS ORDERED: Sod Polystyrene Sulf 15 gm/60 ml Susp PO ONE (14:50)
[2018-04-22] MEDS ORDERED: Albuterol 0.083% Inhal Sol (2.5 mg/3 mL) UD INH STA (14:54)
[2018-04-22] MEDS ORDERED: Sod Polystyrene Sulf 15 gm/60 ml Susp ONE (15:21)
[2018-04-22] MEDS ORDERED: Albuterol 0.083% Inhal Sol (2.5 mg/3 mL) UD ONE (15:22)
[2018-04-22 15:34] LABS: ABG ALLEN TEST YES; ARTERIAL BLOOD GAS HCO3 17.8 mmol/L (21-28); ARTERIAL BLOOD GAS HEMOGLOBIN 11.1 g/dL (11.7-17.4); ARTERIAL BLOOD GAS O2 CONTENT 14.9 ML/dL (15-23); ARTERIAL BLOOD GAS O2 SAT 99.3 % (95-98); ARTERIAL BLOOD GAS PCO2 32 mm/Hg (35-45); ARTERIAL BLOOD GAS PH 7.31 (7.35-7.45); ARTERIAL BLOOD GAS PO2 78 mm/Hg (80-100); ARTERIAL BLOOD GAS TCO2 17.1 mmol/L (22-28)
[2018-04-22 15:51] LABS: SQUAMOUS EPITHIAL 2 /hpf (0-5); URINE BACTERIA RARE (<OCC); URINE BILIRUBIN NEGATIVE (NEGATIVE); URINE BLOOD SMALL (NEGATIVE); URINE CLARITY SLIGHTY-CLOUDY (Clear); URINE COLOR YELLOW (YELLOW); URINE GLUCOSE (UA) >=500 mg/dL (Normal); URINE LEUKOCYTE ESTERASE NEG Leu/uL (Negative); URINE PROTEIN 100 mg/dL (NEGATIVE); URINE UROBILINOGEN 0.2-1.0 mg/dL (0.2-1.0)
[2018-04-22 23:49] VITALS: BMI 31.6
[2018-04-23] MEDS ORDERED: Insulin Detemir 100 Units/ml Inj SC SCH (00:04)
[2018-04-23] MEDS: Insulin Lispro (humaLOG) 100 Units/ml Inj SC SCH ×6 (00:42→21:40)
[2018-04-23] MEDS ORDERED: Pneumococcal 23-Valent Vaccine IM ONE (06:30)
[2018-04-23 07:33] LABS: HEMOGLOBIN 11.7 g/dL (12.0-16.0); MEAN CORPUSCULAR HEMOGLOBIN 28.1 pg (27.0-31.0); MEAN CORPUSCULAR HGB CONC 33.5 g/dL (33.0-37.0); RBC 4.15 Mil/uL (3.80-5.20); RED CELL DISTRIBUTION WIDTH 12.6 % (11.5-14.5); WHITE BLOOD COUNT 3.9 K/uL (4.8-10.8)
[2018-04-23 07:53] LABS: LDL CHOLESTEROL 43 mg/dL (0-129)
[2018-04-23 07:59] LABS: ALBUMIN 3.5 g/dL (3.5-5.0); ALT/SGPT 21 U/L (9-52); AST/SGOT 28 U/L (14-36); BLOOD UREA NITROGEN 19 mg/dl (7-17); CALCIUM 8.9 mg/dL (8.4-10.2); GFR AFRICAN-AMERICAN > 60; GFR NON-AFRICAN AMERICAN > 60; HDL CHOLESTEROL 27 MG/DL (30-70)
[2018-04-23] MEDS ORDERED: INSULIN LISPRO 30 UNIT SQ SCH (09:00)
[2018-04-23] MEDS ORDERED: Insulin Lispro (humaLOG) 100 Units/ml Inj SC SCH ×2 (09:00→11:30)
[2018-04-23] MEDS: Apap-Butalbital-Caffeine 325-50-40mg Tab PO PRN ×2 (09:05→17:19)
[2018-04-23 09:33] LABS: T4 6.83 ug/dl (5.5-11.0)
[2018-04-23] MEDS: Sodium Chloride 0.45% 1,000 ML IV SCH ×2 (13:28→20:30)
--- NOTE | 2018-04-23 14:02 | CP.PCM.HP ---
History of Present Illness - History of Present Illness History of Present Illness: CC: Elevated BS level. 62 y/o F, Hx of IDDM, Hypercholesterolemia, Migraine, O/A, brought via EMS to ER [facility] [place], on 04/22/18, referred by her Endocrinology, Dr Gardner, after he received an elevated result of her BS level on DOA from a lab work that were done as out patient. Pt with associated generalized weakness, feeling faint/ dizziness, lightheadedness over the last week, with no relief. Also occasional episodes of SOB. Worsening symptoms: While at ER, finger stick BS 500, ( as per Pt, usually in the 300-400), also found with Triglycerides in 561. Obese, BMI: 31. Aggravated factor: Movements. Pt denied: Fever, chills, n/v/d, abdominal pain, urinary symptoms, CP, palpitations, cough, sick contact, recent travel out of [place]. EKG: Normal sinus rhythm. CXR: Mild atelectasis and or scarring changes L lung base, mild R basilar atelectasis. Present on Admission - Present on Admission Any Indicators Present on Admission: Yes History of Uncontrolled Diabetes: Yes Review of Systems - Constitutional Constitutional: Headache, Weakness - EENT Eyes: Requires Corrective Lenses Ears: Other (negative) Nose/Mouth/Throat: Other (negative) - Cardiovascular Cardiovascular: Rapid Heart Rate - Respiratory Respiratory: Dyspnea (occasional) - Gastrointestinal Gastrointestinal: Other (negative) - Genitourinary Genitourinary: Other (negative) - Musculoskeletal Musculoskeletal: Arthralgias - Integumentary Integumentary: Other (negative) - Neurological Neurological: Dizziness, Headaches - Psychiatric Psychiatric: Anxiety, Depression - Endocrine Endocrine: Other (overweight) - Hematologic/Lymphatic Hematologic: Other (negative) Past Patient History - Past Medical History & Family History Past Medical History?: Yes - Past Social History Smoking Status: Never Smoked - CARDIAC Hx Cardiac Disorders: Yes Hx Hypercholesterolemia: Yes Hx Hypertension: Yes - PULMONARY Hx Respiratory Disorders: No - NEUROLOGICAL Hx Migraine: Yes - HEENT Hx HEENT Problems: No - RENAL Hx Chronic Kidney Disease: No - ENDOCRINE/METABOLIC Hx Endocrine Disorders: Yes Hx Diabetes Mellitus Type 2: Yes - HEMATOLOGICAL/ONCOLOGICAL Hx Blood Disorders: No - INTEGUMENTARY Hx Dermatological Problems: No - MUSCULOSKELETAL/RHEUMATOLOGICAL Hx Falls: Yes - GASTROINTESTINAL Hx Gastrointestinal Disorders: No Hx Vomiting: No - GENITOURINARY/GYNECOLOGICAL Hx Genitourinary Disorders: No - PSYCHIATRIC Hx Substance Use: No - SURGICAL HISTORY Hx Section: Yes Hx Cholecystectomy: Yes - ANESTHESIA Hx Anesthesia: Yes Hx Anesthesia Reactions: No Hx Malignant Hyperthermia: No Meds Allergies/Adverse Reactions: Allergies Allergy/AdvReac Type Severity Reaction Status Date / Time No Known Allergies Allergy Verified 04/22/18 12:49 Physical Exam - Constitutional Appears: No Acute Distress - Head Exam Head Exam: NORMAL INSPECTION - Eye Exam Eye Exam: PERRL - ENT Exam ENT Exam: Normal Exam - Neck Exam Neck exam: Positive for: Normal Inspection - Respiratory Exam Respiratory Exam: NORMAL BREATHING PATTERN - Cardiovascular Exam Cardiovascular Exam: REGULAR RHYTHM - GI/Abdominal Exam GI & Abdominal Exam: Normal Bowel Sounds, Soft Additional comments: Obese. - Extremities Exam Extremities exam: Positive for: normal inspection - Back Exam Back exam: NORMAL INSPECTION - Neurological Exam Neurological exam: Alert, Oriented x3 Additional comments: No motor/sensory deficit. - Psychiatric Exam Psychiatric exam: Anxious - Skin Skin Exam: Warm Results - Vital Signs Recent Vital Signs: Last Vital Signs Temp 98.8 F 04/23/18 12:25 Pulse 95 H 04/23/18 12:25 Resp 18 04/23/18 12:25 BP 164/87 H 04/23/18 12:25 Pulse Ox 97 04/23/18 12:25 reviewed Brenden - Labs Result Diagrams: 04/23/18 06:00 04/23/18 06:00 Labs: Laboratory Results - last 24 hr 04/22/18 04/22/18 04/22/18 14:13 14:13 15:18 WBC 4.3 L RBC 4.07 Hgb 11.3 L Hct 34.6 MCV 84.8 MCH 27.8 MCHC 32.8 L RDW 12.6 Plt Count 221 MPV 8.3 Neut % (Auto) 41.2 L Lymph % (Auto) 41.5 H [place] % (Auto) 11.3 H Eos % (Auto) 5.0 H Baso % (Auto) 1.0 Neut # (Auto) 1.8 Lymph # (Auto) 1.8 [place] # (Auto) 0.5 Eos # (Auto) 0.2 Baso # (Auto) 0.0 pCO2 pO2 HCO3 ABG pH ABG Total CO2 ABG O2 Saturation ABG O2 Content ABG Base Excess ABG Hemoglobin ABG Carboxyhemoglobin POC ABG HHb (Measured) ABG Methemoglobin ABG O2 Capacity Jamey Test A-a O2 Difference Hgb O2 Saturation FiO2 Sodium 130 L Potassium 6.4 H* Chloride 99 Carbon Dioxide 20 L Anion Gap 17 BUN 29 H Creatinine 1.4 H Est GFR ( Amer) 46 Est GFR (Non-Af Amer) 38 POC Glucose (mg/dL) Random Glucose 563 H* Calcium 8.6 Total Bilirubin 0.4 AST 30 ALT 28 Alkaline Phosphatase 103 Total Protein 6.9 Albumin 3.5 Globulin 3.4 Albumin/Globulin Ratio 1.0 Triglycerides Cholesterol LDL Cholesterol Direct HDL Cholesterol Thyroxine (T4) TSH 3rd Generation Urine Color Yellow Urine Clarity Slighty-cloudy Urine pH 5.0 Ur Specific [place] 1.023 Urine Protein 100 Urine Glucose (UA) >=500 Urine Ketones Negative Urine Blood Small Urine Nitrate Negative Urine Bilirubin Negative Urine Urobilinogen 0.2-1.0 Ur Leukocyte Esterase Neg Urine RBC (Auto) 7 H Urine Microscopic WBC 2 Ur Squamous Epith Cells 2 Ur Transition Epith Cell 1 Urine Bacteria Rare Hyaline Casts 6-10 H 04/22/18 04/22/18 04/22/18 15:28 17:10 23:07 WBC RBC Hgb Hct MCV MCH MCHC RDW Plt Count MPV Neut % (Auto) Lymph % (Auto) [place] % (Auto) Eos % (Auto) Baso % (Auto) Neut # (Auto) Lymph # (Auto) [place] # (Auto) Eos # (Auto) Baso # (Auto) pCO2 32 L pO2 78 L HCO3 17.8 L ABG pH 7.31 L ABG Total CO2 17.1 L ABG O2 Saturation 99.3 H ABG O2 Content 14.9 L ABG Base Excess -9.1 L ABG Hemoglobin 11.1 L ABG Carboxyhemoglobin 2.0 H POC ABG HHb (Measured) 0.7 ABG Methemoglobin 2.2 ABG O2 Capacity 15.0 L Jamey Test Yes A-a O2 Difference 32.0 Hgb O2 Saturation 95.1 FiO2 21.0 Sodium Potassium Chloride Carbon Dioxide Anion Gap BUN Creatinine Est GFR ( Amer) Est GFR (Non-Af Amer) POC Glucose (mg/dL) 334 H 351 H Random Glucose Calcium Total Bilirubin AST ALT Alkaline Phosphatase Total Protein Albumin Globulin Albumin/Globulin Ratio Triglycerides Cholesterol LDL Cholesterol Direct HDL Cholesterol Thyroxine (T4) TSH 3rd Generation Urine Color Urine Clarity Urine pH Ur Specific [place] Urine Protein Urine Glucose (UA) Urine Ketones Urine Blood Urine Nitrate Urine Bilirubin Urine Urobilinogen Ur Leukocyte Esterase Urine RBC (Auto) Urine Microscopic WBC Ur Squamous Epith Cells Ur Transition Epith Cell Urine Bacteria Hyaline Casts 04/23/18 04/23/18 04/23/18 00:25 05:22 06:00 WBC 3.9 L RBC 4.15 Hgb 11.7 L Hct 34.9 MCV 84.0 MCH 28.1 MCHC 33.5 RDW 12.6 Plt Count 223 MPV Neut % (Auto) Lymph % (Auto) [place] % (Auto) Eos % (Auto) Baso % (Auto) Neut # (Auto) Lymph # (Auto) [place] # (Auto) Eos # (Auto) Baso # (Auto) pCO2 pO2 HCO3 ABG pH ABG Total CO2 ABG O2 Saturation ABG O2 Content ABG Base Excess ABG Hemoglobin ABG Carboxyhemoglobin POC ABG HHb (Measured) ABG Methemoglobin ABG O2 Capacity Jamey Test A-a O2 Difference Hgb O2 Saturation FiO2 Sodium Potassium Chloride Carbon Dioxide Anion Gap BUN Creatinine Est GFR ( Amer) Est GFR (Non-Af Amer) POC Glucose (mg/dL) 466 H* 370 H Random Glucose Calcium Total Bilirubin AST ALT Alkaline Phosphatase Total Protein Albumin Globulin Albumin/Globulin Ratio Triglycerides Cholesterol LDL Cholesterol Direct HDL Cholesterol Thyroxine (T4) TSH 3rd Generation Urine Color Urine Clarity Urine pH Ur Specific [place] Urine Protein Urine Glucose (UA) Urine Ketones Urine Blood Urine Nitrate Urine Bilirubin Urine Urobilinogen Ur Leukocyte Esterase Urine RBC (Auto) Urine Microscopic WBC Ur Squamous Epith Cells Ur Transition Epith Cell Urine Bacteria Hyaline Casts 04/23/18 04/23/18 06:00 11:33 WBC RBC Hgb Hct MCV MCH MCHC RDW Plt Count MPV Neut % (Auto) Lymph % (Auto) [place] % (Auto) Eos % (Auto) Baso % (Auto) Neut # (Auto) Lymph # (Auto) [place] # (Auto) Eos # (Auto) Baso # (Auto) pCO2 pO2 HCO3 ABG pH ABG Total CO2 ABG O2 Saturation ABG O2 Content ABG Base Excess ABG Hemoglobin ABG Carboxyhemoglobin POC ABG HHb (Measured) ABG Methemoglobin ABG O2 Capacity Jamey Test A-a O2 Difference Hgb O2 Saturation FiO2 Sodium 139 Potassium 5.1 H Chloride 106 Carbon Dioxide 23 Anion Gap 15 BUN 19 H Creatinine 0.8 Est GFR ( Amer) > 60 Est GFR (Non-Af Amer) > 60 POC Glucose (mg/dL) 192 H Random Glucose 421 H* D Calcium 8.9 Total Bilirubin 0.2 AST 28 ALT 21 Alkaline Phosphatase 105 Total Protein 7.1 Albumin 3.5 Globulin 3.6 Albumin/Globulin Ratio 1.0 Triglycerides 561 H Cholesterol 144 LDL Cholesterol Direct 43 HDL Cholesterol 27 L Thyroxine (T4) 6.83 TSH 3rd Generation 4.77 H Urine Color Urine Clarity Urine pH Ur Specific [place] Urine Protein Urine Glucose (UA) Urine Ketones Urine Blood Urine Nitrate Urine Bilirubin Urine Urobilinogen Ur Leukocyte Esterase Urine RBC (Auto) Urine Microscopic WBC Ur Squamous Epith Cells Ur Transition Epith Cell Urine Bacteria Hyaline Casts reviewed J.P. - EKG Data EKG comments: reviewed J.P. - Imaging and Cardiology Chest x-ray Status: Report reviewed by me (J.P.) Assessment & Plan (1) Diabetes mellitus, insulin dependent (IDDM), uncontrolled Status: Acute Priority: High (2) Hyperglycemia Status: Acute Priority: High (3) Hyperkalemia Status: Acute Priority: High (4) High triglycerides Status: Chronic Priority: High (5) Hypertension Status: Chronic Priority: High (6) Hx of migraines Status: Chronic Priority: High (7) Anxiety and depression Status: Chronic Priority: High - Assessment and Plan (Free Text) Plan: Continue Humalog, Levemir and Januvia as per Endocrinology business systems consultant, continue Diovan, Lopressor, Norvasc, Sodium Chl, Fioricet and rest of Tx. Endocrinology consult appreciated. - Date & Time Date: 04/23/18 Time: 14:20
--- NOTE | 2018-04-23 19:13 | CON ---
DATE: ENDOCRINOLOGY CONSULTATION HISTORY OF PRESENT ILLNESS: This is a 62-year-old female with known history of type 2 insulin-requiring diabetes and presenting here with marked hyperglycemic accelerations and generalized body weakness with progressive bouts of dizziness and lightheadedness and is now being referred for diabetic evaluation and management. She actually went for a routine blood testing a day before admission and was notified by the lab that her glucose levels were over 500 with hyperkalemia and spurious hyponatremia as noted prompting a call to the patient to be evaluated in our emergency room for eventual admission. PAST MEDICAL HISTORY: As mentioned above, history of type 2 insulin-requiring diabetes on a very high dose of basal and bolus insulin drug combination. She was previously on Levemir given at 100 units at bedtime but was changed to 80 units at bedtime with Humalog given as 50 units 3 times a day before meals. She was also on metformin at 850 two times a day and Januvia 100 mg once daily. History of hypertension and dyslipidemia, history of overweight condition and marked insulin resistance with tremendous hefty insulin requirements as noted thereof. History of generalized anxiety and depression, currently on psychotropic medications, history of diffuse osteoarthritis. She also has episodic migraine headaches as noted. Moreover, she also has history of diabetic retinopathy and polyneuropathy. FAMILY HISTORY: Positive for hypertension and diabetes. SOCIAL HISTORY: The patient has supportive family. No known substance use. REVIEW OF SYSTEMS: Admits to generalized body weakness with easy fatigability and tiredness with recent bouts of hypersomnolence and lethargy. Moreover, she admits to progressive bouts of dizziness and lightheadedness worse in the last 2 days prior to admission. No chest pains or palpitations, but admits to episodic shortness of breath especially on exertion. Her oral intake has been variable with nausea, dyspepsia, and variable oral and variable meal portions. Also admits to marked polyuria and nocturia and polydipsia as noted. Moreover, admits to lower extremity paresthesias, especially nocturnally with low back pain as noted. PHYSICAL EXAMINATION: GENERAL: This is an overweight female in no apparent distress. VITAL SIGNS: With the blood pressure of 140/80, pulse of 70 beats per minute and regular, temperature 98, and respirations 20. Height is 5 feet 2 inches and weight is 172 pounds. HEENT: Head normocephalic. Eyes anicteric with pink conjunctivae. Funduscopy is not possible at this time. Ears, nose and throat otherwise normal. NECK: Supple. Thyroid gland is normal in size. No carotid bruits or any cervical adenopathy. HEART: Adynamic precordium. S1 and S2 is rapid and regular. LUNGS: Clear to auscultation. ABDOMEN: Flat and soft, with positive bowel sounds. EXTREMITIES: No peripheral edema. Pulses are +2 bilaterally. LABORATORY DATA: Her chemistry showed BUN initially of 29, sodium of 130, potassium of 6.4, chloride of 99, CO2 of 20, glucose of 563, and creatinine of 1.4. Her glucose levels now have ranged from 351 mg/dL to 466 mg/dL. ASSESSMENT: This is a 62-year-old female with uncontrolled and decompensated type 2 insulin-requiring diabetes who is presenting here with generalized body weakness and progressive dizziness and lightheadedness with concomitant hyperosmolar hyperglycemic state with marked hyperkalemia and spurious hyponatremia and mild metabolic acidosis related to a subtherapeutic insulin regimen despite a very insulin dosing given on the outpatient. The question of adherence to her insulin regimen is the most possibility of fluctuating glycemic profile especially in the light of recent anxiety and depression. 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 PLAN OF MANAGEMENT: As discussed with the patient and staff, we will continue the vigorous IV hydration as given and change the IVs to half-normal saline at mL/hour as given. We will modify her current insulin regimen and change the Levemir to 80 units subcu at bedtime daily as given to start tonight. We will also change her Humalog to 40 units subcu 3 times a day before meals as given. We will titrate incrementally as indicated to optimize metabolic control. We will continue her Januvia at 25 mg daily and we will titrate to 100 mg just before discharge. We will obtain serial chemistries and supplement accordingly as needed. We will also obtain a hemoglobin A1c to confirm her prior glycemic control and baseline thyroid function studies will be ordered. We will obtain serial chemistries and supplement accordingly as needed. We will also consider the initiation of [employer] insulin pump to optimize her metabolic control on the outpatient. We will discuss with the patient and her insurance company if approved. Melissa Gardner MD
[2018-04-23] MEDS: Insulin Detemir 100 Units/ml Inj SC SCH (21:41)
[2018-04-24] MEDS ORDERED: Apap-Butalbital-Caffeine 325-50-40mg Tab PO ONE (00:07)
[2018-04-24] MEDS: Sodium Chloride 0.45% 1,000 ML IV SCH (06:30)
[2018-04-24] MEDS: Insulin Lispro (humaLOG) 100 Units/ml Inj SC SCH ×6 (07:05→21:48)
[2018-04-24] MEDS ORDERED: Insulin Lispro (humaLOG) 100 Units/ml Inj SC SCH (07:30)
--- NOTE | 2018-04-24 13:30 | PN ---
DATE: 04/24/2018 ENDOCRINOLOGY FOLLOWUP NOTE LOCATION: In room number 418, bed 2. SUBJECTIVE: This is a 62-year-old female with recent uncontrolled type 2 insulin-requiring diabetes, now being followed closely for metabolic management. Her glycemic levels are fluctuating, but improved and the latest glucose levels overnight have ranged from 103 to 260 and 287 mg/dL. LABORATORY DATA: Her latest chemistries showed BUN of 19, sodium of 139, potassium of 5.1, chloride of 106, CO2 of 23, glucose of 421, and creatinine of 0.8. ASSESSMENT AND PLAN: So at this time, we will modify her basal and bolus insulin regimen to allow for dose equilibration and increase her Humalog to 34 units subcutaneous t.i.d. before meals to start today as given. We will titrate incremental as indicated to optimize metabolic control. We will continue also the low dose correction scale using Humalog insulin as given to obviate hypoglycemia. We will continue the same basal insulin given as Levemir at 80 units subcutaneous at bedtime daily as given. Moreover, we will increase her Januvia to 100 mg once daily in the morning as ordered. We will titrate incremental as indicated to optimize metabolic control. We will also reinforce diabetic education and dietary instructions at the time of this admission, especially with the occasional omission of the insulin regimen as given. We will obtain serial chemistries and supplement accordingly as needed. We will follow. Melissa Gardner MD
[2018-04-24] MEDS: Insulin Detemir 100 Units/ml Inj SC SCH (21:56)
--- NOTE | 2018-04-24 23:07 | CP.PCM.PN ---
Subjective - Date & Time of Evaluation Date of Evaluation: 04/24/18 Time of Evaluation: 15:20 - Subjective Subjective: F/U IDDM Pt c/o of headache, improved from yesterday Objective - Vital Signs/Intake and Output Vital Signs (last 24 hours): Temp Pulse Resp BP Pulse Ox 98.1 F 81 20 136/86 95 04/24/18 19:58 04/24/18 19:58 04/24/18 19:58 04/24/18 19:58 04/24/18 19:58 - Medications Medications: Current Medications Acetaminophen/Butalbital/Caffeine (Fioricet) 2 tab PO BID PRN PRN Reason: Headache Last Admin: 04/23/18 17:19 Dose: 2 tab Amlodipine Besylate (Norvasc) 10 mg PO DAILY [facility] Last Admin: 04/24/18 08:15 Dose: 10 mg Diazepam (Valium) 10 mg PO HS [facility] Last Admin: 04/24/18 21:55 Dose: 10 mg Escitalopram Oxalate (Lexapro) 10 mg PO DAILY [facility] Last Admin: 04/24/18 08:18 Dose: 10 mg Insulin Detemir (Levemir) 80 units SC HS [facility] Last Admin: 04/24/18 21:56 Dose: 80 units Insulin Human Lispro (Humalog) 0 units SC ACHS [facility] PRN Reason: Protocol Last Admin: 04/24/18 21:48 Dose: Not Given Insulin Human Lispro (Humalog) 34 units SC AC [facility] Last Admin: 04/24/18 16:48 Dose: Not Given Metoprolol Tartrate (Lopressor) 50 mg PO BID [facility] Last Admin: 04/24/18 16:50 Dose: 50 mg Sitagliptin Phosphate (Januvia) 100 mg PO DAILY [facility] Tramadol HCl (Ultram) 50 mg PO Q6 PRN PRN Reason: Pain, severe (8-10) Last Admin: 04/24/18 10:53 Dose: 50 mg Valsartan (Diovan) 320 mg PO DAILY [facility] Last Admin: 04/24/18 08:17 Dose: 320 mg - Labs Labs: 04/23/18 06:00 04/23/18 06:00 - Constitutional Appears: No Acute Distress - Head Exam Head Exam: NORMAL INSPECTION - Eye Exam Eye Exam: PERRL - ENT Exam ENT Exam: Normal Exam - Neck Exam Neck Exam: Normal Inspection - Respiratory Exam Respiratory Exam: NORMAL BREATHING PATTERN - Cardiovascular Exam Cardiovascular Exam: REGULAR RHYTHM - GI/Abdominal Exam GI & Abdominal Exam: Soft, Normal Bowel Sounds Additional comments: Obese - Extremities Exam Extremities Exam: Normal Inspection - Back Exam Back Exam: NORMAL INSPECTION - Neurological Exam Neurological Exam: Alert, Oriented x3. absent: Motor Sensory Deficit - Psychiatric Exam Psychiatric exam: Anxious - Skin Skin Exam: Warm Assessment and Plan (1) Diabetes mellitus, insulin dependent (IDDM), uncontrolled Status: Acute (2) Hyperglycemia Status: Acute (3) Hyperkalemia Status: Acute (4) High triglycerides Status: Chronic (5) Hypertension Status: Chronic (6) Hx of migraines Status: Chronic (7) Anxiety and depression Status: Chronic - Assessment and Plan (Free Text) Plan: BS improved, continue Fioricet, Tramadol, Humalog, Levemir and rest of Tx.
[2018-04-25 05:53] LABS: BASO % 1.1 % (0.0-2.0); EOS # 0.3 K/uL (0.0-0.7); EOS % 6.6 % (0.0-4.0); HEMOGLOBIN 12.7 g/dL (12.0-16.0); LYMPH # 2.4 K/uL (1.0-4.3); LYMPH % 52.5 % (20.0-40.0); MEAN CELL VOLUME 84.6 fl (81.0-99.0); MEAN CORPUSCULAR HEMOGLOBIN 27.7 pg (27.0-31.0); MEAN CORPUSCULAR HGB CONC 32.7 g/dL (33.0-37.0); MEAN PLATELET VOLUME 7.9 fl (7.2-11.7); MONO # 0.4 K/uL (0.0-0.8); MONO % 9.4 % (0.0-10.0); NEUT # 1.4 K/uL (1.8-7.0); NEUT % 30.4 % (50.0-75.0); NRBC % 0.1 % (0.0-0.0); RBC 4.6 Mil/uL (3.80-5.20); RED CELL DISTRIBUTION WIDTH 12.7 % (11.5-14.5); WHITE BLOOD COUNT 4.6 K/uL (4.8-10.8)
[2018-04-25 06:17] LABS: ALB/GLOB RATIO 0.9 (1.0-2.1); ALBUMIN 3.4 g/dL (3.5-5.0); ALT/SGPT 37 U/L (9-52); AST/SGOT 28 U/L (14-36); BLOOD UREA NITROGEN 10 mg/dl (7-17); CALCIUM 8.6 mg/dL (8.4-10.2); GFR AFRICAN-AMERICAN > 60; GFR NON-AFRICAN AMERICAN > 60
[2018-04-25] MEDS: Insulin Lispro (humaLOG) 100 Units/ml Inj SC SCH ×5 (08:00→12:45)
[2018-04-25 08:03] VITALS: RESP 20
[2018-04-25 12:04] VITALS: BP 147/76; PULSE 76; TEMP 98.2; O2SAT 95
--- NOTE | 2018-04-25 15:40 | CP.PCM.DIS ---
Provider - Provider Date of Admission: 04/22/18 15:54 Attending physician: Johnnie Nice MD Diagnosis - Discharge Diagnosis (1) Diabetes mellitus, insulin dependent (IDDM), uncontrolled Status: Acute Priority: High (2) Hyperglycemia Status: Acute Priority: High (3) Hyperkalemia Status: Acute Priority: High (4) High triglycerides Status: Chronic Priority: High (5) Hypertension Status: Chronic Priority: High (6) Hx of migraines Status: Chronic Priority: High (7) Anxiety and depression Status: Chronic Priority: High Hospital Course - Lab Results Lab Results: Micro Results 04/22/18 15:18 Urine,Clean Catch Urine Culture - Final No Growth (<1,000 CFU/ML) Most Recent Lab Values WBC 4.6 K/uL (4.8-10.8) L 04/25/18 04:20 RBC 4.60 Mil/uL (3.80-5.20) 04/25/18 04:20 Hgb 12.7 g/dL (12.0-16.0) 04/25/18 04:20 Hct 39.0 % (34.0-47.0) 04/25/18 04:20 MCV 84.6 fl (81.0-99.0) 04/25/18 04:20 MCH 27.7 pg (27.0-31.0) 04/25/18 04:20 MCHC 32.7 g/dL (33.0-37.0) L 04/25/18 04:20 RDW 12.7 % (11.5-14.5) 04/25/18 04:20 Plt Count 231 K/uL (130-400) 04/25/18 04:20 MPV 7.9 fl (7.2-11.7) 04/25/18 04:20 Neut % (Auto) 30.4 % (50.0-75.0) L 04/25/18 04:20 Lymph % (Auto) 52.5 % (20.0-40.0) H 04/25/18 04:20 [place] % (Auto) 9.4 % (0.0-10.0) 04/25/18 04:20 Eos % (Auto) 6.6 % (0.0-4.0) H 04/25/18 04:20 Baso % (Auto) 1.1 % (0.0-2.0) 04/25/18 04:20 Neut # (Auto) 1.4 K/uL (1.8-7.0) L 04/25/18 04:20 Lymph # (Auto) 2.4 K/uL (1.0-4.3) 04/25/18 04:20 [place] # (Auto) 0.4 K/uL (0.0-0.8) 04/25/18 04:20 Eos # (Auto) 0.3 K/uL (0.0-0.7) 04/25/18 04:20 Baso # (Auto) 0.0 K/uL (0.0-0.2) 04/25/18 04:20 pCO2 32 mm/Hg (35-45) L 04/22/18 15: pO2 78 mm/Hg (80-100) L 04/22/18 15: HCO3 17.8 mmol/L (21-28) L 04/22/18: ABG pH 7.31 (7.35-7.45) L 04/22/18 15: ABG Total CO2 17.1 mmol/L (22-28) L 04/22/18 15: ABG O2 Saturation 99.3 % (95-98) H 04/22/18: ABG O2 Content 14.9 ML/dL (15-23) L 04/22/18 15: ABG Base Excess -9.1 mmol/L (-2.0-3.0) L 04/22/18: ABG Hemoglobin 11.1 g/dL (11.7-17.4) L 04/22/18 15: ABG Carboxyhemoglobin 2.0 % (0.5-1.5) H 04/22/18 15: POC ABG HHb (Measured) 0.7 % (0.0-5.0) 04/22/18: ABG Methemoglobin 2.2 % (0.0-3.0) 04/22/18: ABG O2 Capacity 15.0 mL/dL (16-24) L 04/22/18 15:28 Jamey Test Yes 04/22/18 15: A-a O2 Difference 32.0 mm/Hg 04/22/18 15:28 Hgb O2 Saturation 95.1 % (95.0-98.0) 04/22/18 15:28 FiO2 21.0 % 04/22/18 15:28 Sodium 138 mmol/l (132-148) 04/25/18 04:20 Potassium 4.1 MMOL/L (3.6-5.0) 04/25/18 04:20 Chloride 106 mmol/L (98-107) 04/25/18 04:20 Carbon Dioxide 23 mmol/L (22-30) 04/25/18 04:20 Anion Gap 13 (10-20) 04/25/18 04:20 BUN 10 mg/dl (7-17) 04/25/18 04:20 Creatinine 0.6 mg/dl (0.7-1.2) L 04/25/18 04:20 Est GFR ( Amer) > 60 04/25/18 04:20 Est GFR (Non-Af Amer) > 60 04/25/18 04:20 POC Glucose (mg/dL) 184 mg/dL (65-110) H 04/25/18 11:56 Random Glucose 202 mg/dL (65-105) H 04/25/18 04:20 Hemoglobin A1c 11.9 % (4.2-6.5) H 04/23/18 06:00 Calcium 8.6 mg/dL (8.4-10.2) 04/25/18 04:20 Total Bilirubin 0.4 mg/dl (0.2-1.3) 04/25/18 04:20 AST 28 U/L (14-36) 04/25/18 04:20 ALT 37 U/L (9-52) 04/25/18 04:20 Alkaline Phosphatase 104 U/L (38-126) 04/25/18 04:20 Total Protein 7.1 G/DL (6.3-8.2) 04/25/18 04:20 Albumin 3.4 g/dL (3.5-5.0) L 04/25/18 04:20 Globulin 3.7 gm/dL (2.2-3.9) 04/25/18 04:20 Albumin/Globulin Ratio 0.9 (1.0-2.1) L 04/25/18 04:20 Triglycerides 561 mg/DL (0-149) H 04/23/18 06:00 Cholesterol 144 mg/dL (0-199) 04/23/18 06:00 LDL Cholesterol Direct 43 mg/dL (0-129) 04/23/18 06:00 HDL Cholesterol 27 MG/DL (30-70) L 04/23/18 06:00 Thyroxine (T4) 6.83 ug/dl (5.5-11.0) 04/23/18 06:00 TSH 3rd Generation 4.77 mIU/ML (0.46-4.68) H 04/23/18 06:00 Urine Color Yellow (YELLOW) 04/22/18 15:18 Urine Clarity Slighty-cloudy (Clear) 04/22/18 15:18 Urine pH 5.0 (5.0-8.0) 04/22/18 15:18 Ur Specific [place] 1.023 (1.003-1.030) 04/22/18 15:18 Urine Protein 100 mg/dL (NEGATIVE) 04/22/18 15:18 Urine Glucose (UA) >=500 mg/dL (Normal) 04/22/18 15:18 Urine Ketones Negative mg/dL (NEGATIVE) 04/22/18 15:18 Urine Blood Small (NEGATIVE) 04/22/18 15:18 Urine Nitrate Negative (NEGATIVE) 04/22/18 15:18 Urine Bilirubin Negative (NEGATIVE) 04/22/18 15:18 Urine Urobilinogen 0.2-1.0 mg/dL (0.2-1.0) 04/22/18 15:18 Ur Leukocyte Esterase Neg Justin/uL (Negative) 04/22/18 15:18 Urine RBC (Auto) 7 /hpf (0-3) H 04/22/18 15:18 Urine Microscopic WBC 2 /hpf (0-5) 04/22/18 15:18 Ur Squamous Epith Cells 2 /hpf (0-5) 04/22/18 15:18 Ur Transition Epith Cell 1 /hpf (0-3) 04/22/18 15:18 Urine Bacteria Rare (<OCC) 04/22/18 15:18 Hyaline Casts 6-10 /hpf (0-2) H 04/22/18 15:18 Urine Creatinine 42 mg/dL (20-320) 04/23/18 18:44 Urine Microalbumin 25.3 mg/dL 04/23/18 18:44 Microalb/Creat Ratio 607 (<30) H 04/23/18 18:44 Discharge Exam - Head Exam Head Exam: NORMAL INSPECTION Discharge Plan - Follow Up Plan Condition: STABLE Disposition: HOME/ ROUTINE Instructions: Hyperglycemia, Adult (DC), Diabetes Type 2 (DC) Additional Instructions: pt. cleared for discharge to Home today by and cont. current meds except increase levemir to 80 units sc hs and Humalog to 40 units sc AC tid f/u with outpatient Referrals: Melissa Gardner MD [Medical Doctor] - Johnnie Nice MD [Family Provider] -
--- NOTE | 2018-04-25 20:57 | PN ---
DATE: 04/25/2018 ENDOCRINOLOGY FOLLOWUP NOTE LOCATION: Room 418. SUBJECTIVE: This is a 62-year-old female with recent uncontrolled type 2 insulin-requiring diabetes, now being followed closely for metabolic management. Her glycemic levels are fluctuating, but improved, and the glucose values have ranged from 181 to 184 and 219 mg/dL. Her latest chemistry showed a BUN of 10, sodium 138, potassium 4.1, chloride 106, CO2 23, glucose 202, and creatinine 0.6. Her hemoglobin A1c was 11.9%, which is quite elevated, and indicative of suboptimal metabolic control of her diabetic condition even as an outpatient. ASSESSMENT: This is a 62-year-old female with uncontrolled and decompensated type 2 insulin-requiring diabetes presenting here with hyperosmolar hyperglycemic state and dehydration with spurious hyponatremia and hyperkalemia and has since then improved clinically and metabolically as noted thereof. PLAN OF MANAGEMENT: As discussed with the patient and the staff, we will modify her current insulin regimen to optimize metabolic control. We will obtain serial chemistries and supplement accordingly as needed. We will increase her Humalog to 40 units subcu t.i.d. before meals to start today as ordered. We will also continue the basal insulin given as Levemir 80 units subcu at bedtime daily to start . We will continue the oral hypoglycemic therapy with Metformin 850 mg b.i.d. with meals and Januvia at 100 mg once daily in the morning as ordered. We will titrate increments as indicated to optimize metabolic control. We will follow and advised accordingly. Melissa Gardner MD
== END 2018-04-25 14:10 | disposition home or self-care (01) | DRG 294 ==
LOC: H.ER 12:37 → H.ERHOLD 15:54 → H.TEL 23:25
PROVIDERS: ADMIT Internal Medicine Pulmonary Disease; ATTEND Internal Medicine Pulmonary Disease
PROC: 3E0234Z Introduction of Serum, Toxoid and Vaccine into Muscle, Percutaneous Approach (ICD-10-PCS; principal; 2018-04-23)
DX: E11.00 Type 2 diabetes mellitus with hyperosmolarity without nonketotic hyperglycemic-hyperosmolar coma (NKHHC) (principal); E87.5 Hyperkalemia; E87.1 Hypo-osmolality and hyponatremia; E87.2 Acidosis; E11.42 Type 2 diabetes mellitus with diabetic polyneuropathy; E11.319 Type 2 diabetes mellitus with unspecified diabetic retinopathy without macular edema; E66.9 Obesity, unspecified; Z68.31 Body mass index [BMI] 31.0-31.9, adult; E78.1 Pure hyperglyceridemia; E78.5 Hyperlipidemia, unspecified; I10 Essential (primary) hypertension; E78.00 Pure hypercholesterolemia, unspecified; F41.1 Generalized anxiety disorder; F32.9 Major depressive disorder, single episode, unspecified; G43.909 Migraine, unspecified, not intractable, without status migrainosus; M19.90 Unspecified osteoarthritis, unspecified site; Z23 Encounter for immunization; Z79.4 Long term (current) use of insulin; Z90.49 Acquired absence of other specified parts of digestive tract

== ENCOUNTER 2018-10-11 11:51 | Emergency (ER) | payer MEDICAID ==
[2018-10-11 11:58] VITALS: BMI 34.0
--- NOTE | 2018-10-11 14:27 | ED PDOC ---
HPI: General Adult Time Seen by Provider: 10/11/18 12:17 Chief Complaint (Nursing): Weakness/Neurological Deficit Chief Complaint (Provider): Weakness/Neurological Deficit History Per: Patient History/Exam Limitations: no limitations Onset/Duration Of Symptoms: Days (x3) Current Symptoms Are (Timing): Still Present Additional Complaint(s): 62 year old female with pmHx of DM, HTN, and HCL, arrives to ED for an evaluation of uncontrolled diabetes. Patient reports dizziness, headache, vomiting, and general malaise for past 3 days when her glucose levels fluctuate from high to low. She was en route to an appointment with her PCP but felt ill, thus, prompting ED visit. Otherwise, she denies any fever, chills, chest pain, or shortness of breath. PCP: Dr. Johnnie Everett Past Medical History Reviewed: Historical Data, Nursing Documentation, Vital Signs Vital Signs: Last Vital Signs Temp 96 F L 10/11/18 11:57 Pulse 138 H 10/11/18 11:57 Resp BP 154/92 H 10/11/18 11:57 Pulse Ox 96 10/11/18 11:57 - Medical History PMH: Arthritis, Depression, Diabetes, HTN, Hypercholesterolemia, Migraine Denies: Chronic Kidney Disease - Surgical History Surgical History: Cholecystectomy, (x2) - Family History Family History: States: Diabetes, Hypertension - Social History Current smoker - smoking cessation education provided: No Ex-Smoker (has not smoked in the last 12 months): No Alcohol: None Drugs: Denies - Home Medications Home Medications: Ambulatory Orders Medication Instructions Recorded RX: Escitalopram [Lexapro] 10 mg PO DAILY 05/01/15 RX: Acetaminophen/Butalbital/Caf 2 tab PO PRN PRN 02/22/18 [Fioricet] RX: diaZEpam [Valium] 10 mg PO HS 02/22/18 RX: amLODIPine [Norvasc] 10 mg PO DAILY #30 tab 02/25/18 RX: Insulin Detemir [Levemir] 60 units SC HS #5 vial 02/28/18 RX: Metoprolol Tartrate [Lopressor] 50 mg PO BID #60 tab 02/28/18 RX: SITagliptin [Januvia] 100 mg PO DAILY #60 tab 02/28/18 RX: Valsartan [Diovan] 320 mg PO DAILY #30 tab 02/28/18 RX: metFORMIN [glucOPHAGE] 850 mg PO BIDWM #60 tab 02/28/18 RX: Insulin Detemir [Levemir] 80 units SC HS #0 vial 04/25/18 RX: Insulin Lispro [Humalog 40 unit SQ AC #10 cartridge 04/25/18 (Insulin Lispro)] - Allergies Allergies/Adverse Reactions: Allergies Allergy/AdvReac Type Severity Reaction Status Date / Time No Known Allergies Allergy Verified 04/22/18 12:49 Review of Systems ROS Statement: Except As Marked, All Systems Reviewed And Found Negative Constitutional: Positive for: Malaise. Negative for: Fever, Chills Cardiovascular: Negative for: Chest Pain Respiratory: Negative for: Shortness of Breath Gastrointestinal: Positive for: Vomiting Neurological: Positive for: Headache, Dizziness Physical Exam - Reviewed Nursing Documentation Reviewed: Yes Vital Signs Reviewed: Yes - Physical Exam Appears: Positive for: Well, Non-toxic, No Acute Distress Head Exam: Positive for: ATRAUMATIC, NORMAL INSPECTION, NORMOCEPHALIC Skin: Positive for: Normal Color Eye Exam: Positive for: Normal appearance, EOMI, PERRL ENT: Positive for: Normal ENT Inspection Neck: Positive for: Normal Cardiovascular/Chest: Positive for: Regular Rate, Rhythm, Chest Non Tender Respiratory: Positive for: Normal Breath Sounds. Negative for: Respiratory Distress Gastrointestinal/Abdominal: Positive for: Normal Exam, Soft. Negative for: Tenderness Back: Positive for: Normal Inspection Extremity: Positive for: Normal ROM (upper/lower). Negative for: Pedal Edema Neurologic/Psych: Positive for: Alert, Oriented (x3). Negative for: Motor/Senso ry Deficits - Laboratory Results Result Diagrams: 10/11/18 14:16 10/11/18 14:16 - ECG O2 Sat by Pulse Oximetry: 96 (RA) Pulse Ox Interpretation: Normal Medical Decision Making Medical Decision Making: Time: 1425 Initial Plan: pt with complaints in multiple review of systems * Labs * Blood culture Time: 1430 --Accucheck: 314 mg/dL. Time: 1720 --Accucheck: 190 mg/dL. Decrease in glucose, otherwise, labs are normal, anion gap normal. Dr. Everett made aware of case and agrees with plans for dc once pulse improved and sugar improved. Time: 1900 --Patient is signed out to Dr. Marquez, pending re-evaluation/recheck pulse and sugar. Scribe Attestation: Documented by Melissa Qureshi, acting as a scribe for Darrius Delgadillo MD. Provider Scribe Attestation: All medical record entries made by the Scribe were at my direction and p ersonally dictated by me. I have reviewed the chart and agree that the record accurately reflects my personal performance of the history, physical exam, medical decision making, and the department course for this patient. I have also personally directed, reviewed, and agree with the discharge instructions and disposition. Disposition - Clinical Impression Clinical Impression: Hyperglycemia - Patient ED Disposition Is Patient to be Admitted: Transfer of Care Counseled Patient/Family Regarding: Studies Performed, Diagnosis - Disposition Disposition: Transfer of Care Disposition Time: 19:00 Condition: IMPROVED Additional Instructions: follow up with your primary doctor dr everett in 1-2 days return to the ED with any worsening or concerning symptoms Instructions: Hyperglycemia, Adult (DC) Forms: Sincerely (Japanese) Patient Signed Over To: Kole Marquez
[2018-10-11 14:56] LABS: BLOOD UREA NITROGEN 15 mg/dl (7-17); GFR NON-AFRICAN AMERICAN > 60
[2018-10-11 14:59] LABS: BASO # 0.2 K/uL (0.0-0.2); BASO % 2.2 % (0.0-2.0); EOS # 0.6 K/uL (0.0-0.7); EOS % 7.5 % (0.0-4.0); HEMOGLOBIN 12.5 g/dL (12.0-16.0); LYMPH % 38.2 % (20.0-40.0); MEAN CELL VOLUME 86.3 fl (81.0-99.0); MEAN CORPUSCULAR HEMOGLOBIN 27.9 pg (27.0-31.0); MEAN CORPUSCULAR HGB CONC 32.3 g/dL (33.0-37.0); MEAN PLATELET VOLUME 8.2 fl (7.2-11.7); MONO # 0.7 K/uL (0.0-0.8); MONO % 8.7 % (0.0-10.0); NEUT # 3.4 K/uL (1.8-7.0); NEUT % 43.4 % (50.0-75.0); NRBC % 0.3 % (0.0-0.0); RBC 4.48 Mil/uL (3.80-5.20); RED CELL DISTRIBUTION WIDTH 13.3 % (11.5-14.5); WHITE BLOOD COUNT 7.8 K/uL (4.8-10.8)
[2018-10-11 15:01] LABS: ALB/GLOB RATIO 0.9 (1.0-2.1); ALBUMIN 3.8 g/dL (3.5-5.0); ALT/SGPT 27 U/L (9-52); AST/SGOT 45 U/L (14-36)
[2018-10-11] MEDS ORDERED: Sodium Chloride 0.9% 1,000 ML IV STA (17:05)
[2018-10-11 17:41] VITALS: RESP 18
--- NOTE | 2018-10-11 19:23 | ED PDOC ---
- Laboratory Results Result Diagrams: 10/11/18 14:16 10/11/18 14:16 - ECG O2 Sat by Pulse Oximetry: 96 (RA) Medical Decision Making Medical Decision Making: Time: 1899 --Patient is endorsed to provider by Dr. Delgadillo, pending re-evaluation and final disposition. Time: 2132 --Upon provider reevaluation, patient reports feeling better and requesting to be discharged home. Patient is medically stable and requires no further treatment in the ED at this time. Counseling was provided and all questions were answered regarding diagnosis. There is agreement to discharge plan. Return if symptoms persist or worsen. Clinical Impression: Hyperglycemia Scribe Attestation: Documented by Melissa Qureshi, acting as a scribe for Kole Marquez MD. Provider Scribe Attestation: All medical record entries made by the Scribe were at my direction and personally dictated by me. I have reviewed the chart and agree that the record accurately reflects my personal performance of the history, physical exam, medical decision making, and the department course for this patient. I have also personally directed, reviewed, and agree with the discharge instructions and disposition. Disposition Counseled Patient/Family Regarding: Studies Performed, Diagnosis - Clinical Impression Clinical Impression: Hyperglycemia - POA Present On Arrival: None - Disposition Disposition: Routine/Home Disposition Time: 21:33 Condition: IMPROVED Additional Instructions: follow up with your primary doctor dr everett in 1-2 days return to the ED with any worsening or concerning symptoms Instructions: Hyperglycemia, Adult (DC) Forms: [employer] (Thai)
[2018-10-11 21:37] VITALS: BP 162/91; PULSE 109; TEMP 99
--- NOTE | 2018-10-12 11:00 | CARD ---
APPROVED REPORT Date of service: 10/11/2018 EKG Measurement Heart [id number] <Conclusion> Sinus tachycardia Possible inferior infarct, age undetermined Abnormal ECG
[2018-10-12 18:18] VITALS: O2SAT 96
== END 2018-10-11 21:47 | disposition home or self-care (01) ==
LOC: H.ER 11:51
DX: E11.65 Type 2 diabetes mellitus with hyperglycemia (principal); Z79.4 Long term (current) use of insulin; E78.00 Pure hypercholesterolemia, unspecified; F32.9 Major depressive disorder, single episode, unspecified; I10 Essential (primary) hypertension
CPT/HCPCS: 80053; 82948; 85025; 87040; 93005; 99285; J7030

== ENCOUNTER 2018-12-07 15:24 | Inpatient (IN) | payer MEDICAID ==
[2018-12-07 15:24] VITALS: BMI 34.0
[2018-12-07] MEDS ORDERED: Sodium Chloride 0.9% 1,000 ML IV STA ×2 (16:06→17:56)
--- NOTE | 2018-12-07 16:22 | RAD ---
Date of service: 12/07/2018 HISTORY: possible admission COMPARISON: Chest radiograph dated 04/22/2018. FINDINGS: LUNGS: No active pulmonary disease. PLEURA: No significant pleural effusion identified, no pneumothorax apparent. CARDIOVASCULAR: Aortic atherosclerotic calcifications. Cardiomediastinal silhouette stably prominent. OSSEOUS STRUCTURES: Changed. VISUALIZED UPPER ABDOMEN: Normal. OTHER FINDINGS: None. IMPRESSION: No active disease.
[2018-12-07 16:33] LABS: VENOUS BLOOD GAS BASE EXCESS -1.1 mmol/L (0.0-2.0); VENOUS BLOOD GAS PCO2 48 mmHg (40-60); VENOUS BLOOD GAS PO2 15 mm/Hg (30-55); VENOUS BLOOD PH 7.33 (7.32-7.43)
[2018-12-07 16:48] LABS: ALB/GLOB RATIO 0.9 (1.0-2.1); ALBUMIN 3.3 g/dL (3.5-5.0); ALT/SGPT 18 U/L (9-52); AST/SGOT 30 U/L (14-36); BLOOD UREA NITROGEN 19 mg/dl (7-17); CALCIUM 9.5 mg/dL (8.4-10.2); GFR NON-AFRICAN AMERICAN > 60
[2018-12-07 16:52] LABS: B-TYPE NATRIURETIC PEPTIDE 114 pg/ml (0-900)
[2018-12-07 16:54] LABS: BASO # 0.1 K/uL (0.0-0.2); BASO % 1.9 % (0.0-2.0); EOS # 0.3 K/uL (0.0-0.7); EOS % 5.3 % (0.0-4.0); HEMOGLOBIN 13.4 g/dL (12.0-16.0); LYMPH # 1.9 K/uL (1.0-4.3); LYMPH % 34.2 % (20.0-40.0); MEAN CELL VOLUME 85.9 fl (81.0-99.0); MEAN CORPUSCULAR HEMOGLOBIN 27.4 pg (27.0-31.0); MEAN CORPUSCULAR HGB CONC 31.9 g/dL (33.0-37.0); MEAN PLATELET VOLUME 8.2 fl (7.2-11.7); MONO # 0.4 K/uL (0.0-0.8); MONO % 6.6 % (0.0-10.0); NEUT # 2.8 K/uL (1.8-7.0); NRBC % 0.3 % (0.0-0.0); RBC 4.89 Mil/uL (3.80-5.20); RED CELL DISTRIBUTION WIDTH 13.2 % (11.5-14.5); WHITE BLOOD COUNT 5.4 K/uL (4.8-10.8)
[2018-12-07] MEDS ORDERED: Insulin Regular 100 units/ml SC STA (18:29)
[2018-12-07 18:49] LABS: SQUAMOUS EPITHIAL 8 /hpf (0-5); URINE BILIRUBIN NEGATIVE (NEGATIVE); URINE BLOOD NEGATIVE (NEGATIVE); URINE CLARITY CLOUDY (Clear); URINE COLOR YELLOW (YELLOW); URINE GLUCOSE (UA) >=500 mg/dL (NEGATIVE); URINE LEUKOCYTE ESTERASE NEG Leu/uL (Negative); URINE PROTEIN >=500 mg/dL (NEGATIVE); URINE UROBILINOGEN 0.2-1.0 mg/dL (0.2-1.0)
--- NOTE | 2018-12-07 19:05 | ED PDOC ---
HPI: Abdomen Time Seen by Provider: 12/07/18 16:03 Chief Complaint (Nursing): GI Problem Chief Complaint (Provider): GI Problem History Per: Patient History/Exam Limitations: no limitations Onset/Duration Of Symptoms: Days (x 7) Current Symptoms Are (Timing): Still Present Quality Of Discomfort: "Pain" Associated Symptoms: Vomiting, Diarrhea Additional Complaint(s): 62 year old female with a history of HTN and DM presents to the ED with one week of worsening vomiting, diarrhea and abdominal pain. She also complains of a mild cough. Patient believes symptoms are tied to high blood sugar. She does not remember blood sugar at home. Finger stick was 487 at arrival. Patient received the flu vaccine. Denies fever and sick contacts. PMD: Dr. Nice Past Medical History Reviewed: Historical Data, Nursing Documentation, Vital Signs Vital Signs: Last Vital Signs Temp 97.3 F L 12/07/18 15:37 Pulse 103 H 12/07/18 17:01 Resp 14 12/07/18 17:01 BP 177/81 H 12/07/18 15:37 Pulse Ox 97 12/07/18 17:01 - Medical History PMH: Arthritis, Depression, Diabetes, HTN, Hypercholesterolemia, Migraine Denies: Chronic Kidney Disease - Surgical History Surgical History: Cholecystectomy, (x2) - Family History Family History: States: Diabetes, Hypertension - Home Medications Home Medications: Ambulatory Orders Medication Instructions Recorded RX: Escitalopram [Lexapro] 10 mg PO DAILY 05/01/15 RX: Acetaminophen/Butalbital/Caf 2 tab PO PRN PRN 02/22/18 [Fioricet] RX: diaZEpam [Valium] 10 mg PO HS 02/22/18 RX: amLODIPine [Norvasc] 10 mg PO DAILY #30 tab 02/25/18 RX: Metoprolol Tartrate [Lopressor] 50 mg PO BID #60 tab 02/28/18 RX: SITagliptin [Januvia] 100 mg PO DAILY #60 tab 02/28/18 RX: Valsartan [Diovan] 320 mg PO DAILY #30 tab 02/28/18 RX: metFORMIN [glucOPHAGE] 850 mg PO BIDWM #60 tab 02/28/18 - Allergies Allergies/Adverse Reactions: Allergies Allergy/AdvReac Type Severity Reaction Status Date / Time No Known Allergies Allergy Verified 04/22/18 12:49 Review of Systems ROS Statement: Except As Marked, All Systems Reviewed And Found Negative Constitutional: Negative for: Fever, Chills Respiratory: Positive for: Cough Gastrointestinal: Positive for: Vomiting, Abdominal Pain, Diarrhea Physical Exam - Reviewed Nursing Documentation Reviewed: Yes Vital Signs Reviewed: Yes - Physical Exam Appears: Positive for: No Acute Distress Head Exam: Positive for: ATRAUMATIC, NORMAL INSPECTION, NORMOCEPHALIC Skin: Positive for: Normal Color, Warm, Dry Eye Exam: Positive for: EOMI, Normal appearance, PERRL ENT: Positive for: Normal ENT Inspection (otherwise), Other (lips dry) Neck: Positive for: Normal, Painless ROM, Supple Cardiovascular/Chest: Positive for: Regular Rate, Rhythm. Negative for: Murmur Respiratory: Positive for: Normal Breath Sounds. Negative for: Respiratory Distress Gastrointestinal/Abdominal: Positive for: Normal Exam, Soft. Negative for: Tenderness Back: Positive for: Normal Inspection. Negative for: L CVA Tenderness, R CVA Tenderness Extremity: Positive for: Normal ROM (x 4). Negative for: Deformity, Swelling Neurologic/Psych: Positive for: Alert, Oriented (x 3). Negative for: Motor/Sensory Deficits - Laboratory Results Result Diagrams: 12/08/18 05:45 12/08/18 05:45 Lab Results: pO2 15 mm/Hg (30-55) L 12/07/18 16:25 VBG pH 7.33 (7.32-7.43) 12/07/18 16:25 VBG pCO2 48 mmHg (40-60) 12/07/18 16:25 VBG HCO3 21.9 mmol/L 12/07/18 16:25 VBG Total CO2 26.8 mmol/L (22-28) 12/07/18 16:25 VBG O2 Sat (Calc) 21.2 % (40-65) L 12/07/18 16:25 VBG Base Excess -1.1 mmol/L (0.0-2.0) L 12/07/18 16:25 VBG Potassium 4.6 mmol/L (3.6-5.2) 12/07/18 16:25 Sodium 136.0 mmol/L (132-148) 12/07/18 16:25 Chloride 103.0 mmol/L (98-107) 12/07/18 16:25 Glucose 374 mg/dL (65-105) H 12/07/18 16:25 Lactate 2.1 mmol/L (0.7-2.1) 12/07/18 16:25 FiO2 21.0 % 12/07/18 16:25 Troponin I 0.0160 ng/mL (0.00-0.120) 12/07/18 16:26 NT-Pro-B Natriuret Pep 114 pg/ml (0-900) 12/07/18 16:26 Total Bilirubin 0.2 mg/dl (0.2-1.3) 12/07/18 16:26 AST 30 U/L (14-36) 12/07/18 16:26 ALT 18 U/L (9-52) 12/07/18 16:26 Alkaline Phosphatase 124 U/L (38-126) 12/07/18 16:26 Total Protein 7.0 G/DL (6.3-8.2) 12/07/18 16:26 Albumin 3.3 g/dL (3.5-5.0) L 12/07/18 16:26 Globulin 3.7 gm/dL (2.2-3.9) 12/07/18 16:26 Albumin/Globulin Ratio 0.9 (1.0-2.1) L 12/07/18 16:26 Urine Color Yellow (YELLOW) 12/07/18 18:34 Urine Clarity Cloudy (Clear) 12/07/18 18:34 Urine pH 5.0 (5.0-8.0) 12/07/18 18:34 Ur Specific [place] 1.035 (1.003-1.030) H 12/07/18 18:34 Urine Protein >=500 mg/dL (NEGATIVE) 12/07/18 18:34 Urine Glucose (UA) >=500 mg/dL (NEGATIVE) 12/07/18 18:34 Urine Ketones Trace mg/dL (NEGATIVE) 12/07/18 18:34 Urine Blood Negative (NEGATIVE) 12/07/18 18:34 Urine Nitrate Negative (NEGATIVE) 12/07/18 18:34 Urine Bilirubin Negative (NEGATIVE) 12/07/18 18:34 Urine Urobilinogen 0.2-1.0 mg/dL (0.2-1.0) 12/07/18 18:34 Ur Leukocyte Esterase Neg Justin/uL (Negative) 12/07/18 18:34 Urine RBC (Auto) 5 /hpf (0-3) H 12/07/18 18:34 Urine Microscopic WBC 4 /hpf (0-5) 12/07/18 18:34 Ur Squamous Epith Cells 8 /hpf (0-5) H 12/07/18 18:34 - ECG O2 Sat by Pulse Oximetry: 97 (RA) Pulse Ox Interpretation: Normal Medical Decision Making Medical Decision Makin:06 MDM: workup for hyperglycemia IV fluids and labs Will start insulin when potassium levels are back Instructed not to eat even and is currently asking for pudding 18:45 Patient to be admitted for further monitoring of blood sugar, dehydration and influenza A. Scribe Attestation: Documented by Nuria Hernandez acting as a scribe for Holly Sethi MD Provider Scribe Attestation: All medical record entries made by the Scribe were at my direction and personally dictated by me. I have reviewed the chart and agree that the record accurately reflects my personal performance of the history, physical exam, medical decision making, and the department course for this patient. I have also personally directed, reviewed, and agree with the discharge instructions and disposition. Disposition - Clinical Impression Clinical Impression: Dehydration, Influenza - Patient ED Disposition Is Patient to be Admitted: Yes - Disposition Disposition Time: 18:46 Condition: GUARDED - Pt Status Changed To: Hospital Disposition Of: Inpatient - Admit Certification Admit to Inpatient:: After my assessment, the patient will require hospitalization for at least two midnights. This is because of the severity of symptoms shown, intensity of services needed, and/or the medical risk in this patient being treated as an outpatient.
[2018-12-07] MEDS ORDERED: Labetalol 5mg/ml (4ml) IVP ONE (23:29)
[2018-12-07] MEDS ORDERED: Insulin Detemir 100 Units/ml Inj SC SCH (23:45)
[2018-12-08] MEDS: Sodium Chloride 0.9% 1,000 ML IV SCH ×2 (00:09→19:58)
[2018-12-08] MEDS ORDERED: Apap-Butalbital-Caffeine 325-50-40mg Tab PO PRN ×2 (02:02→06:26)
[2018-12-08] MEDS: Apap-Butalbital-Caffeine 325-50-40mg Tab PO PRN ×2 (06:56→18:03)
[2018-12-08 07:09] LABS: HEMOGLOBIN 11.9 g/dL (12.0-16.0); MEAN CELL VOLUME 84.5 fl (81.0-99.0); MEAN CORPUSCULAR HEMOGLOBIN 27.4 pg (27.0-31.0); MEAN CORPUSCULAR HGB CONC 32.4 g/dL (33.0-37.0); RBC 4.36 Mil/uL (3.80-5.20); RED CELL DISTRIBUTION WIDTH 13.1 % (11.5-14.5); WHITE BLOOD COUNT 4.9 K/uL (4.8-10.8)
[2018-12-08 07:23] LABS: ALB/GLOB RATIO 0.8 (1.0-2.1); ALBUMIN 2.6 g/dL (3.5-5.0); ALT/SGPT 22 U/L (9-52); AST/SGOT 28 U/L (14-36); BLOOD UREA NITROGEN 11 mg/dl (7-17); CALCIUM 7.9 mg/dL (8.4-10.2); GFR NON-AFRICAN AMERICAN > 60; HDL CHOLESTEROL 31 MG/DL (30-70)
[2018-12-08 07:29] LABS: LDL CHOLESTEROL 80 mg/dL (0-129)
[2018-12-08] MEDS: Insulin Regular 100 units/ml SC SCH ×3 (08:00→16:57)
[2018-12-08] MEDS: Azithromycin 500 MG in Sodium Chloride 0.9% 250 ML IVPB SCH (09:40)
--- NOTE | 2018-12-08 13:59 | CARD ---
APPROVED REPORT Date of service: 12/07/2018 EKG Measurement Heart [id number] <Conclusion> Sinus tachycardia Minimal voltage criteria for LVH, may be normal variant Borderline ECG
--- NOTE | 2018-12-08 19:36 | CP.PCM.HP ---
History of Present Illness - History of Present Illness History of Present Illness: CC: Abdominal pain. 62 y/o F, PMHx: IDDM, Hypercholesterolemia, HTN, Migraine, O/A, came to [facility] on 12/[facility]18 to be evaluated for Abdominal pain, epigastric area that began a week ago, gradually increased in the last 3 days [employer] with no relief. Pain was constant, at times intermittent, stabbing, moderate to severe intensity 8:10. non radiated, associated to n/v/d, weakness. Worsening symptoms: Found with finger stick BS: 487. elevated BP: 177/81, Pt c/o of headache, constant, moderate intensity 6:10, mild cough. Aggravated factor: Food. Pt denied: fever, chills, urinary symptoms, CP, syncope, SOB sick contact, recent travel out of [facility]. EKG: Sinus tachycardia, minimal voltage criteria for LVH. CXR: No active disease. Present on Admission - Present on Admission Any Indicators Present on Admission: Yes History of Uncontrolled Diabetes: Yes Review of Systems - Constitutional Constitutional: Headache, Weakness - EENT Eyes: Requires Corrective Lenses Ears: Other (negative) Nose/Mouth/Throat: Other (negative) - Cardiovascular Cardiovascular: Rapid Heart Rate - Respiratory Respiratory: Cough (mild) - Gastrointestinal Gastrointestinal: Abdominal Pain, Diarrhea, Nausea, Vomiting - Genitourinary Genitourinary: Other (negative) - Musculoskeletal Musculoskeletal: Arthralgias - Integumentary Integumentary: Other (negative) - Neurological Neurological: Headaches - Psychiatric Psychiatric: Anxiety, Depression - Endocrine Endocrine: Other (negative) - Hematologic/Lymphatic Hematologic: Other (negative) Past Patient History - Past Medical History & Family History Past Medical History?: Yes Pertinent Family History: Unknown - Past Social History Smoking Status: Never Smoked Alcohol: None Drugs: Denies Home Situation {Lives}: Alone - CARDIAC Hx Cardiac Disorders: Yes Hx Hypercholesterolemia: Yes Hx Hypertension: Yes - PULMONARY Hx Respiratory Disorders: No - NEUROLOGICAL Hx Neurological Disorder: Yes Hx Migraine: Yes - HEENT Hx HEENT Problems: No - RENAL Hx Chronic Kidney Disease: No - ENDOCRINE/METABOLIC Hx Endocrine Disorders: Yes Hx Diabetes Mellitus Type 2: Yes - HEMATOLOGICAL/ONCOLOGICAL Hx Blood Disorders: No - INTEGUMENTARY Hx Dermatological Problems: No - MUSCULOSKELETAL/RHEUMATOLOGICAL Hx Musculoskeletal Disorders: Yes Hx Arthritis: Yes - GASTROINTESTINAL Hx Gastrointestinal Disorders: No Hx Vomiting: No - GENITOURINARY/GYNECOLOGICAL Hx Genitourinary Disorders: No - PSYCHIATRIC Hx Psychophysiologic Disorder: Yes Hx Anxiety: Yes Hx Depression: Yes - SURGICAL HISTORY Hx Surgeries: Yes Hx Cholecystectomy: Yes - ANESTHESIA Hx Anesthesia: Yes Hx Anesthesia Reactions: No Hx Malignant Hyperthermia: No Meds Allergies/Adverse Reactions: Allergies Allergy/AdvReac Type Severity Reaction Status Date / Time No Known Allergies Allergy Verified 04/22/18 12:49 Physical Exam - Constitutional Appears: No Acute Distress - Head Exam Head Exam: NORMAL INSPECTION - Eye Exam Eye Exam: PERRL - ENT Exam ENT Exam: Normal Exam - Neck Exam Neck exam: Positive for: Normal Inspection - Respiratory Exam Respiratory Exam: NORMAL BREATHING PATTERN - Cardiovascular Exam Cardiovascular Exam: REGULAR RHYTHM - GI/Abdominal Exam GI & Abdominal Exam: Hyperactive Bowel Sounds, Soft - Extremities Exam Extremities exam: Positive for: normal inspection - Back Exam Back exam: NORMAL INSPECTION - Neurological Exam Neurological exam: Alert, Oriented x3 Additional comments: No motor/sensory deficit - Psychiatric Exam Psychiatric exam: Anxious, Depressed - Skin Skin Exam: Warm Results - Vital Signs Recent Vital Signs: Last Vital Signs Temp 97.1 F L 12/08/18 16:11 Pulse 73 12/08/18 16:11 Resp 20 12/08/18 16:11 BP 175/78 H 12/08/18 16:11 Pulse Ox 96 12/08/18 16:11 reviewed Brenden - Labs Result Diagrams: 12/08/18 05:45 12/08/18 05:45 Labs: Laboratory Results - last 24 hr 12/07/18 12/07/18 12/08/18 21:33 22:49 05:43 WBC RBC Hgb Hct MCV MCH MCHC RDW Plt Count Sodium Potassium Chloride Carbon Dioxide Anion Gap BUN Creatinine Est GFR ( Amer) Est GFR (Non-Af Amer) POC Glucose (mg/dL) 286 H 217 H 261 H Random Glucose Hemoglobin A1c Calcium Total Bilirubin AST ALT Alkaline Phosphatase Total Protein Albumin Globulin Albumin/Globulin Ratio Triglycerides Cholesterol LDL Cholesterol Direct HDL Cholesterol TSH 3rd Generation 12/08/18 12/08/18 12/08/18 05:45 05:45 05:45 WBC 4.9 RBC 4.36 Hgb 11.9 L Hct 36.8 MCV 84.5 MCH 27.4 MCHC 32.4 L RDW 13.1 Plt Count 276 Sodium 137 Potassium 3.7 Chloride 110 H Carbon Dioxide 22 Anion Gap 9 L BUN 11 Creatinine 0.7 Est GFR ( Amer) > 60 Est GFR (Non-Af Amer) > 60 POC Glucose (mg/dL) Random Glucose 260 H Hemoglobin A1c 11.7 H Calcium 7.9 L Total Bilirubin < 0.1 L AST 28 ALT 22 Alkaline Phosphatase 94 Total Protein 5.7 L Albumin 2.6 L D Globulin 3.1 Albumin/Globulin Ratio 0.8 L Triglycerides 759 H D Cholesterol 224 H LDL Cholesterol Direct 80 HDL Cholesterol 31 TSH 3rd Generation 2.71 12/08/18 12/08/18 11:01 15:59 WBC RBC Hgb Hct MCV MCH MCHC RDW Plt Count Sodium Potassium Chloride Carbon Dioxide Anion Gap BUN Creatinine Est GFR ( Amer) Est GFR (Non-Af Amer) POC Glucose (mg/dL) 337 H 98 Random Glucose Hemoglobin A1c Calcium Total Bilirubin AST ALT Alkaline Phosphatase Total Protein Albumin Globulin Albumin/Globulin Ratio Triglycerides Cholesterol LDL Cholesterol Direct HDL Cholesterol TSH 3rd Generation reviewed J.P. - EKG Data EKG comments: reviewed J.P. - Imaging and Cardiology Chest x-ray Status: Report reviewed by me (Brenden) Assessment & Plan (1) Abdominal pain Status: Acute Priority: High (2) Diabetes mellitus, insulin dependent (IDDM), uncontrolled Status: Acute Priority: High (3) High triglycerides Status: Chronic Priority: High (4) Head ache Status: Acute Priority: High (5) Hx of migraines Status: Chronic Priority: High (6) Hypertension Status: Chronic Priority: High (7) Anxiety and depression Status: Chronic Priority: High - Assessment and Plan (Free Text) Plan: F/U U/A, Continue Zithromax, Tamiflu, Fioricet, Januvia, levemir, Lipitor, Lopressor, Norvasc, Valium and rest of Tx. Endocrinology consult - Date & Time Date: 12/08/18 Time: 10:00
[2018-12-08] MEDS ORDERED: Insulin Detemir 100 Units/ml Inj SC SCH ×2 (22:00)
[2018-12-08] MEDS: Insulin Lispro (humaLOG) 100 Units/ml Inj SC SCH (22:05)
[2018-12-09] MEDS: Apap-Butalbital-Caffeine 325-50-40mg Tab PO PRN (03:15)
[2018-12-09 03:28] LABS: SQUAMOUS EPITHIAL 3 /hpf (0-5); URINE BACTERIA RARE (<OCC); URINE BILIRUBIN NEGATIVE (NEGATIVE); URINE BLOOD NEGATIVE (NEGATIVE); URINE CLARITY CLOUDY (Clear); URINE COLOR YELLOW (YELLOW); URINE GLUCOSE (UA) 150 mg/dL (NEGATIVE); URINE LEUKOCYTE ESTERASE NEG Leu/uL (Negative); URINE PROTEIN >=500 mg/dL (NEGATIVE); URINE UROBILINOGEN 0.2-1.0 mg/dL (0.2-1.0)
[2018-12-09 07:17] LABS: ALB/GLOB RATIO 0.8 (1.0-2.1); ALBUMIN 2.9 g/dL (3.5-5.0); ALT/SGPT 23 U/L (9-52); AST/SGOT 37 U/L (14-36); BLOOD UREA NITROGEN 12 mg/dl (7-17); CALCIUM 8.4 mg/dL (8.4-10.2); GFR NON-AFRICAN AMERICAN > 60
[2018-12-09 08:13] VITALS: RESP 20
--- NOTE | 2018-12-09 08:28 | CON ---
DATE: 12/08/2018 ENDOCRINOLOGY CONSULT LOCATION: Room 656. HISTORY OF PRESENT ILLNESS: This is a 62-year-old female with known history of type 2 insulin-requiring diabetes, presenting here with diffuse abdominal pain and supervening nausea, dyspepsia and vomiting and subsequent loose watery diarrhea and is now being referred for diabetic evaluation and management. She admits to poor compliance and adherence to home glucose monitoring and even to episodic omission of her insulin dose regimen as noted. PAST MEDICAL HISTORY: As mentioned above, history of type 2 insulin-requiring diabetes, on a supposed combination of a basal and bolus insulin regimen and was using Januvia at 100 mg daily with metformin at 850 mg b.i.d., Levemir at 40 units at bedtime and a very erratic use of NovoLog insulin as given. History of hypertension and dyslipidemia, history of generalized anxiety and depression, history of migraine headaches, history of diffuse osteoarthritis. FAMILY HISTORY: Positive for hypertension and diabetes. SOCIAL HISTORY: The patient has a supportive family. No known substance use. REVIEW OF SYSTEMS: Admits to generalized body weakness with easy fatigability and tiredness and suboptimal energy level. Also admits to recent bouts of dizziness and lightheadedness, worse on the day of admission. No chest pains or palpitations but admits to occasional bouts of shortness of breath. Her oral intake has been suboptimal and variable with nausea and dyspepsia and diffuse upper abdominal pain and supervening loose watery diarrhea with episodic bouts of vomiting, especially on the day of admission. Also admits to lower extremity paresthesias, especially nocturnally. PHYSICAL EXAMINATION: GENERAL: This is an average-built female, in no apparent distress VITAL SIGNS: Blood pressure of 170/100, pulse of 100 beats per minute and regular, temperature 98, respirations 20. Height is 5 feet 2 inches, weight is 180 pounds. HEENT: Head: Normocephalic. Eyes: Anicteric with pink conjunctivae. Funduscopy not possible at this time. Ears, nose, and throat otherwise normal. NECK: Supple. Thyroid gland is normal size. No carotid bruits or cervical adenopathy. CARDIOPULMONARY: Some adynamic precordium. S1, S2, rapid and regular. LUNGS: Clear to auscultation. ABDOMEN: Flat, soft with positive bowel sounds. EXTREMITIES: No peripheral edema. Pulses are +2 bilaterally. LABORATORY DATA: Chemistry showed a BUN of 11, sodium 137, potassium 3.7, chloride 110, CO2 of 22, glucose 260 and creatinine 0.7. Her glucose levels have ranged from 82 to 98 and 337 mg/dL. Her A1c is extremely elevated at 11.7% indicative of suboptimal metabolic control of her diabetic condition. ASSESSMENT: This is a 62-year-old female with uncontrolled and decompensated type 2 insulin-requiring diabetes, presenting here with acute onset of nausea, dyspepsia and intractable vomiting episodes with diffuse upper abdominal pain and supervening loose watery diarrhea and the possibility of whether we are dealing with a viral gastroenteritis versus enterocolitis has to be ascertained at this time. 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 PLAN OF MANAGEMENT: We will modify her current insulin regimen and switch over to a more physiologic basal and bolus insulin drug combination as ordered. Because of the variability of her oral intake, we will lower the Levemir to 34 units subcu at bedtime daily as ordered. We will also add Humalog insulin at 10 units t.i.d. before meals as ordered. We will modify the coverage scale to obviate hypoglycemia and detailed orders have been given. We will discontinue her metformin because of the GI related side effects as noted. We will follow. Melissa Gardner MD
[2018-12-09] MEDS: Insulin Lispro (humaLOG) 100 Units/ml Inj SC SCH ×4 (08:34→12:00)
[2018-12-09] MEDS ORDERED: Omega-3-Acid Ethyl Esters 1 GM Cap PO SCH (09:00)
[2018-12-09] MEDS: Azithromycin 500 MG in Sodium Chloride 0.9% 250 ML IVPB SCH (10:22)
[2018-12-09 12:57] VITALS: BP 151/88; PULSE 85
[2018-12-09 12:58] VITALS: TEMP 98.7; O2SAT 98
--- NOTE | 2018-12-09 14:20 | CP.PCM.PCO ---
Assessment/Plan - Assessment/Plan Assessment (Free Text): Pt stable, blood pressure improved after meds. Pt seen by Dr. Nice and cleared for d/c home. Pt states she has all meds at home including insulin which she takes as scheduled. Rx for Cozaar, Tamiflu and Lovaza sent to pt's pharmacy. Rest of meds as per med rec Per Dr. Nice, his office will call pt on Wednesday to schedule appointment for Wednesday evening or Wednesday. Pt aware
--- NOTE | 2018-12-09 14:58 | PQF ---
PROVIDER RESPONSE TEXT: Abdominal Pain due to N/V REVIEWER QUERY TEXT: Clarification of Clinical Diagnostic Findings Please clarify the etiology of the Abdominal Pain: if known after the work up is completed OR: Unable to determine H and P includes: to [facility] 12[facility] to be evaluated for Abdominal pain, epigastric are a that began a week ago ROS: Gastrointestinal: Abdominal Pain, Diarrhea, Nausea, Vomiting (1) Abdominal pain Status: Acute Priority: High (2) Diabetes mellitus, insulin dependent (IDDM), uncontrolled Status: Acute Priority: High (7) Anxiety and depression Status: Chronic Priority: High - Assessment : F/U U/A, Continue Zithromax, Tamiflu, Fioricet, Januvia, levemir, Lipitor, Lopressor, Norvasc, Valium and rest of Tx. Endo consult 12/08 Endocrinolgy consult includes decompensated type 2 insulin-requiring diabetes, presenting here with acute onset of nausea, dyspepsia and intractable vomiting episodes with diffuse upper abdominal pain and supervening loose watery diarrhea and the possibility of whether we are dealing with a vir al gastroenteritis versus enterocolitis has to be ascertained at this time--DM: microvascular cmpl. of retinopathy and polyneuropathy The patient's Clinical Indicators include: ---- Query created by: Shelia Alexander on 12/09/2018 11:16 AM Electronically signed by: Johnnie Nice MD 12/09/2018 2:55 PM
--- NOTE | 2018-12-09 17:05 | CP.PCM.DIS ---
Provider - Provider Date of Admission: 12/07/18 18:46 Attending physician: Johnnie Nice MD Consults: 12/08/18 08:00 Endocrinology Consult Routine Comment: Consulting Provider: Melissa Gardner Consulting Physician: Melissa Gardner Reason for Consult: hyperglycemia Diagnosis - Discharge Diagnosis (1) Abdominal pain Status: Acute Priority: High (2) Diabetes mellitus, insulin dependent (IDDM), uncontrolled Status: Acute Priority: High (3) High triglycerides Status: Chronic Priority: High (4) Head ache Status: Acute Priority: High (5) Hx of migraines Status: Chronic Priority: High (6) Hypertension Status: Chronic Priority: High (7) Anxiety and depression Status: Chronic Priority: High Hospital Course - Lab Results Lab Results: Most Recent Lab Values WBC 4.9 K/uL (4.8-10.8) 12/08/18 05:45 RBC 4.36 Mil/uL (3.80-5.20) 12/08/18 05:45 Hgb 11.9 g/dL (12.0-16.0) L 12/08/18 05:45 Hct 36.8 % (34.0-47.0) 12/08/18 05:45 MCV 84.5 fl (81.0-99.0) 12/08/18 05:45 MCH 27.4 pg (27.0-31.0) 12/08/18 05:45 MCHC 32.4 g/dL (33.0-37.0) L 12/08/18 05:45 RDW 13.1 % (11.5-14.5) 12/08/18 05:45 Plt Count 276 K/uL (130-400) 12/08/18 05:45 MPV 8.2 fl (7.2-11.7) 12/07/18 16:26 Neut % (Auto) 52.0 % (50.0-75.0) 12/07/18 16:26 Lymph % (Auto) 34.2 % (20.0-40.0) 12/07/18 16:26 [place] % (Auto) 6.6 % (0.0-10.0) 12/07/18 16:26 Eos % (Auto) 5.3 % (0.0-4.0) H 12/07/18 16:26 Baso % (Auto) 1.9 % (0.0-2.0) 12/07/18 16:26 Neut # (Auto) 2.8 K/uL (1.8-7.0) 12/07/18 16: Lymph # (Auto) 1.9 K/uL (1.0-4.3) 12/07/18 16:26 [place] # (Auto) 0.4 K/uL (0.0-0.8) 12/07/18 16: Eos # (Auto) 0.3 K/uL (0.0-0.7) 12/07/18 16: Baso # (Auto) 0.1 K/uL (0.0-0.2) 12/07/18 16:26 pO2 15 mm/Hg (30-55) L 12/07/18 16:25 VBG pH 7.33 (7.32-7.43) 12/07/18 16:25 VBG pCO2 48 mmHg (40-60) 12/07/18 16:25 VBG HCO3 21.9 mmol/L 12/07/18 16:25 VBG Total CO2 26.8 mmol/L (22-28) 12/07/18 16:25 VBG O2 Sat (Calc) 21.2 % (40-65) L 12/07/18 16:25 VBG Base Excess -1.1 mmol/L (0.0-2.0) L 12/07/18 16:25 VBG Potassium 4.6 mmol/L (3.6-5.2) 12/07/18 16:25 Sodium 136.0 mmol/L (132-148) 12/07/18 16:25 Chloride 103.0 mmol/L (98-107) 12/07/18 16:25 Glucose 374 mg/dL (65-105) H 12/07/18 16:25 Lactate 2.1 mmol/L (0.7-2.1) 12/07/18 16:25 FiO2 21.0 % 12/07/18 16:25 Sodium 138 mmol/l (132-148) 12/09/18 05:40 Potassium 3.7 MMOL/L (3.6-5.0) 12/09/18 05:40 Chloride 112 mmol/L (98-107) H 12/09/18 05:40 Carbon Dioxide 21 mmol/L (22-30) L 12/09/18 05:40 Anion Gap 9 (10-20) L 12/09/18 05:40 BUN 12 mg/dl (7-17) 12/09/18 05:40 Creatinine 0.7 mg/dl (0.7-1.2) 12/09/18 05:40 Est GFR ( Amer) > 60 12/09/18 05:40 Est GFR (Non-Af Amer) > 60 12/09/18 05:40 POC Glucose (mg/dL) 263 mg/dL (65-110) H 12/09/18 11:01 Random Glucose 181 mg/dL (65-105) H 12/09/18 05:40 Hemoglobin A1c 11.7 % (4.2-6.5) H 12/08/18 05:45 Calcium 8.4 mg/dL (8.4-10.2) 12/09/18 05:40 Total Bilirubin 0.2 mg/dl (0.2-1.3) 12/09/18 05:40 AST 37 U/L (14-36) H D 12/09/18 05:40 ALT 23 U/L (9-52) 12/09/18 05:40 Alkaline Phosphatase 104 U/L (38-126) 12/09/18 05:40 Troponin I 0.0160 ng/mL (0.00-0.120) 12/07/18 16:26 NT-Pro-B Natriuret Pep 114 pg/ml (0-900) 12/07/18 16:26 Total Protein 6.5 G/DL (6.3-8.2) 12/09/18 05:40 Albumin 2.9 g/dL (3.5-5.0) L 12/09/18 05:40 Globulin 3.6 gm/dL (2.2-3.9) 12/09/18 05:40 Albumin/Globulin Ratio 0.8 (1.0-2.1) L 12/09/18 05:40 Triglycerides 759 mg/DL (0-149) H D 12/08/18 05:45 Cholesterol 224 mg/dL (0-199) H 12/08/18 05:45 LDL Cholesterol Direct 80 mg/dL (0-129) 12/08/18 05:45 HDL Cholesterol 31 MG/DL (30-70) 12/08/18 05:45 TSH 3rd Generation 2.71 mIU/ML (0.46-4.68) 12/08/18 05:45 Venous Blood Potassium 4.6 mmol/L (3.6-5.2) 12/07/18 16:25 Urine Color Yellow (YELLOW) 12/09/18 03:00 Urine Clarity Cloudy (Clear) 12/09/18 03:00 Urine pH 5.0 (5.0-8.0) 12/09/18 03:00 Ur Specific [place] 1.035 (1.003-1.030) H 12/09/18 03:00 Urine Protein >=500 mg/dL (NEGATIVE) 12/09/18 03:00 Urine Glucose (UA) 150 mg/dL (NEGATIVE) 12/09/18 03:00 Urine Ketones Negative mg/dL (NEGATIVE) 12/09/18 03:00 Urine Blood Negative (NEGATIVE) 12/09/18 03:00 Urine Nitrate Negative (NEGATIVE) 12/09/18 03:00 Urine Bilirubin Negative (NEGATIVE) 12/09/18 03:00 Urine Urobilinogen 0.2-1.0 mg/dL (0.2-1.0) 12/09/18 03:00 Ur Leukocyte Esterase Neg Justin/uL (Negative) 12/09/18 03:00 Urine RBC (Auto) 13 /hpf (0-3) H 12/09/18 03:00 Urine Microscopic WBC 24 /hpf (0-5) H 12/09/18 03:00 Ur Squamous Epith Cells 3 /hpf (0-5) 12/09/18 03:00 Urine Bacteria Rare (<OCC) 12/09/18 03:00 Hyaline Casts 6-10 /hpf (0-2) H 12/09/18 03:00 Influenza Typ A,B (EIA) Pos for influenza a (NEGATIVE) H 12/07/18 16:26 Discharge Exam - Head Exam Head Exam: NORMAL INSPECTION Discharge Plan - Discharge Medications Prescriptions: Losartan [Cozaar] 100 mg PO DAILY #30 tab Insulin Lispro [Humalog (Insulin Lispro)] 100 unit SQ AC #10 cartridge Insulin Detemir [Levemir] 30 units SC HS #1 vial [id number] Ethyl Esters 1 GM [Lovaza] 2 gm PO BID #60 sgl Oseltamivir Cap [Tamiflu Cap] 75 mg PO BID #7 capsule - Follow Up Plan Condition: GUARDED Disposition: HOME/ ROUTINE Instructions: Hyperglycemia, Adult (DC), Nausea and Vomiting, Adult (DC) Additional Instructions: Dr Nice office will call you to set up appointment. 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
--- NOTE | 2018-12-12 08:45 | PN ---
DATE: 12/09/2018 ENDOCRINOLOGY FOLLOWUP NOTE LOCATION: Room 656. SUBJECTIVE: This is a 62-year-old female with recent uncontrolled type 2 insulin-requiring diabetes, now being followed closely for metabolic management. She was admitted with marked hyperglycemic accelerations related to poor patient adherence and compliance to her insulin regimen and also to home glucose monitoring as noted thereof. LABORATORY DATA: Her latest chemistries showed a BUN of 11, sodium 137, potassium 3.7, chloride 110, CO2 of 22, glucose 260 and creatinine 0.7. Her triglycerides are 759, which are extremely elevated and hemoglobin A1c is 11.7% which is which is also extremely elevated, indicative of suboptimal metabolic control of her diabetic condition even prior to this admission. ASSESSMENT: This is a 62-year-old female with uncontrolled and decompensated type 2 insulin-requiring diabetes, presenting here with marked hyperglycemic accelerations and is now being followed closely for metabolic management. PLAN: Plan of management, we will continue the modified basal and bolus insulin regimen to allow for dose equilibration and keep her on the Humalog given as 10 units t.i.d. before meals as ordered. We will continue the Levemir given as 30 units at bedtime as given. We will obtain serial chemistries and supplement accordingly as needed. We will also continue the same low-dose correction scale using NovoLog insulin as given. We will follow. We will also continue the IV hydration as ordered to replenish her fluids and electrolytes from the increased osmotic diuresis thereof. Melissa Gardner MD
== END 2018-12-09 15:40 | disposition home or self-care (01) | DRG 46 ==
LOC: H.ER 15:24 → H.ERHOLD 18:46 → H.MEDSURG1 22:17
PROVIDERS: ADMIT Internal Medicine Pulmonary Disease; ATTEND Internal Medicine Pulmonary Disease
DX: E11.65 Type 2 diabetes mellitus with hyperglycemia (principal); E86.0 Dehydration; J10.1 Influenza due to other identified influenza virus with other respiratory manifestations; E11.319 Type 2 diabetes mellitus with unspecified diabetic retinopathy without macular edema; E11.42 Type 2 diabetes mellitus with diabetic polyneuropathy; E78.1 Pure hyperglyceridemia; R11.2 Nausea with vomiting, unspecified; E78.00 Pure hypercholesterolemia, unspecified; E78.5 Hyperlipidemia, unspecified; G43.909 Migraine, unspecified, not intractable, without status migrainosus; I10 Essential (primary) hypertension; F41.1 Generalized anxiety disorder; F32.9 Major depressive disorder, single episode, unspecified; Z79.4 Long term (current) use of insulin

== ENCOUNTER 2018-12-14 12:22 | Inpatient (IN) | payer MEDICAID ==
[2018-12-14 12:22] VITALS: BMI 34.0
[2018-12-14] MEDS ORDERED: Sodium Chloride 0.9% 1,000 ML IV STA (13:04)
[2018-12-14] MEDS ORDERED: Insulin Regular 100 units/ml SC STA (13:04)
[2018-12-14] MEDS ORDERED: Insulin Regular 100 units/ml ONE (13:10)
--- NOTE | 2018-12-14 13:13 | ED PDOC ---
HPI: Chest Pain Time Seen by Provider: 12/14/18 12:47 Chief Complaint (Nursing): Chest Pain Chief Complaint (Provider): Chest pain History Per: Patient History/Exam Limitations: no limitations Onset/Duration Of Symptoms: Days (x1) Current Symptoms Are (Timing): Still Present Quality: Sharp Additional Complaint(s): 62 year old female with a past medical history of diabetes and hypertension who is presenting to the ED for evaluation of sharp chest pain radiating to the back onset last night. Patient states that the pain is worse when sitting forward and states that it is not associated with any shortness of breath. She also denies any cough, fevers, leg swelling, or leg pain. Patient offers no other medical complaints at this time. PMD: Johnnie Nice Past Medical History Reviewed: Historical Data, Nursing Documentation, Vital Signs Vital Signs: Last Vital Signs Temp 97.5 F L 12/14/18 12:47 Pulse 109 H 12/14/18 12:47 Resp 18 12/14/18 12:47 BP 151/101 H 12/14/18 12:47 Pulse Ox 100 12/14/18 12:47 - Medical History PMH: Anxiety, Arthritis, Depression, Diabetes, HTN, Hypercholesterolemia, Migraine Denies: Chronic Kidney Disease - Surgical History Surgical History: Cholecystectomy, (x2) - Family History Family History: States: Diabetes, Hypertension - Social History Current smoker - smoking cessation education provided: No Alcohol: None Drugs: Denies - Home Medications Home Medications: Ambulatory Orders Medication Instructions Recorded Escitalopram [Lexapro] 10 mg PO DAILY 05/01/15 Acetaminophen/Butalbital/Caf 2 tab PO PRN PRN 02/22/18 [Fioricet] diaZEpam [Valium] 10 mg PO HS 02/22/18 amLODIPine [Norvasc] 10 mg PO DAILY #30 tab 02/25/18 Metoprolol Tartrate [Lopressor] 50 mg PO BID #60 tab 02/28/18 SITagliptin [Januvia] 100 mg PO DAILY #60 tab 02/28/18 metFORMIN [glucOPHAGE] 850 mg PO BIDWM #60 tab 02/28/18 Insulin Detemir [Levemir] 30 units SC HS #1 vial 12/09/18 Insulin Lispro [Humalog (Insulin 100 unit SQ AC #10 cartridge 12/09/18 Lispro)] Losartan [Cozaar] 100 mg PO DAILY #30 tab 12/09/18 [id number] Ethyl Esters 1 GM 2 gm PO BID #60 sgl 12/09/18 [Lovaza] Oseltamivir Cap [Tamiflu Cap] 75 mg PO BID #7 capsule 12/09/18 - Allergies Allergies/Adverse Reactions: Allergies Allergy/AdvReac Type Severity Reaction Status Date / Time No Known Allergies Allergy Verified 04/22/18 12:49 Review of Systems ROS Statement: Except As Marked, All Systems Reviewed And Found Negative Constitutional: Negative for: Fever Cardiovascular: Positive for: Chest Pain Respiratory: Negative for: Cough, Shortness of Breath Musculoskeletal: Positive for: Back Pain. Negative for: Leg Pain, Other (leg swelling ) Physical Exam - Reviewed Nursing Documentation Reviewed: Yes Vital Signs Reviewed: Yes - Physical Exam Appears: Positive for: Non-toxic, No Acute Distress Head Exam: Positive for: ATRAUMATIC, NORMAL INSPECTION, NORMOCEPHALIC Skin: Positive for: Normal Color, Warm, DRY Eye Exam: Positive for: EOMI, Normal appearance, PERRL Neck: Positive for: Normal, Painless ROM Cardiovascular/Chest: Positive for: Regular Rate, Rhythm. Negative for: Murmur Respiratory: Positive for: Normal Breath Sounds. Negative for: Respiratory Distress Gastrointestinal/Abdominal: Positive for: Normal Exam, Soft. Negative for: T enderness Back: Positive for: Normal Inspection. Negative for: L CVA Tenderness, R CVA Tenderness, Vertebral Tenderness Extremity: Positive for: Normal ROM. Negative for: Pedal Edema, Calf Tenderness, Deformity, Swelling Neurologic/Psych: Positive for: Alert, Oriented. Negative for: Motor/Sensory Deficits - Laboratory Results Result Diagrams: 12/14/18 13:51 12/14/18 13:51 - ECG O2 Sat by Pulse Oximetry: 100 (RA) Pulse Ox Interpretation: Normal Medical Decision Making Medical Decision Making: Time: 13:03 Assessment: chest pain --rule out acute cardiac syndrome --rule out DVT --rule out aortic aneurysm --rule out pneumonia Plan: --CMP --Troponin --CBC --D Dimer --Chest x-ray --HumuLIN R 8 units SC --IV Fluids --Toradol 20 mg IVP Scribe Attestation: Documented by Lanette Nicole, acting as a scribe for Yonatan Vazquez MD. Provider Scribe Attestation: All medical record entries made by the Scribe were at my direction and personally dictated by me. I have reviewed the chart and agree that the record accurately reflects my personal performance of the history, physical exam, medical decision making, and the department course for this patient. I have also personally directed, reviewed, and agree with the discharge instructions and disposition. Disposition - Clinical Impression Clinical Impression: Chest pain, ACS (acute coronary syndrome) - Patient ED Disposition Is Patient to be Admitted: Yes - Disposition Disposition Time: 14:48 Condition: FAIR Forms: [employer] (Dive[employer]) - Pt Status Changed To: Hospital Disposition Of: Inpatient - Admit Certification Admit to Inpatient:: After my assessment, the patient will require hospitalization for at least two midnights. This is because of the severity of symptoms shown, intensity of services needed, and/or the medical risk in this patient being treated as an outpatient. - POA Present On Arrival: None
[2018-12-14 13:55] LABS: BASO # 0.1 K/uL (0.0-0.2); BASO % 1.1 % (0.0-2.0); EOS # 0.5 K/uL (0.0-0.7); EOS % 6.3 % (0.0-4.0); HEMOGLOBIN 13.6 g/dL (12.0-16.0); LYMPH # 1.9 K/uL (1.0-4.3); LYMPH % 24.7 % (20.0-40.0); MEAN CELL VOLUME 86.2 fl (81.0-99.0); MEAN CORPUSCULAR HEMOGLOBIN 27.8 pg (27.0-31.0); MEAN CORPUSCULAR HGB CONC 32.2 g/dL (33.0-37.0); MEAN PLATELET VOLUME 8.1 fl (7.2-11.7); MONO # 0.5 K/uL (0.0-0.8); MONO % 6.9 % (0.0-10.0); NEUT # 4.8 K/uL (1.8-7.0); NRBC % 0.1 % (0.0-0.0); RBC 4.9 Mil/uL (3.80-5.20); RED CELL DISTRIBUTION WIDTH 13.6 % (11.5-14.5); WHITE BLOOD COUNT 7.9 K/uL (4.8-10.8)
--- NOTE | 2018-12-14 14:27 | RAD ---
Date of service: 12/14/2018 HISTORY: chest pain COMPARISON: 12/07/2018 TECHNIQUE: Chest PA and lateral FINDINGS: LUNGS: No active pulmonary disease. PLEURA: No significant pleural effusion identified. No pneumothorax apparent. CARDIOVASCULAR: No aortic atherosclerotic calcification present. Normal cardiac size. No pulmonary vascular congestion. OSSEOUS STRUCTURES: No significant abnormalities. VISUALIZED UPPER ABDOMEN: Normal. OTHER FINDINGS: None. IMPRESSION: No active disease. No significant interval change compared to the prior examination(s).
[2018-12-14 14:41] LABS: ALB/GLOB RATIO 0.9 (1.0-2.1); ALBUMIN 3.2 g/dL (3.5-5.0); ALT/SGPT 10 U/L (9-52); AST/SGOT 59 U/L (14-36); BLOOD UREA NITROGEN 11 mg/dl (7-17); CALCIUM 8.7 mg/dL (8.4-10.2); GFR NON-AFRICAN AMERICAN > 60
[2018-12-14] MEDS ORDERED: Morphine 4 MG/ML VIAL ONE ×2 (14:44→16:00)
[2018-12-14] MEDS ORDERED: Morphine 4 MG/ML VIAL IVP ONE ×2 (14:45→16:00)
[2018-12-14] MEDS ORDERED: Nitroglycerin 2% Ointment Foilpak UD TOP STA (14:46)
[2018-12-14] MEDS ORDERED: Nitroglycerin 2% Ointment Foilpak UD TOP ONE (14:56)
[2018-12-14 15:46] LABS: ALB/GLOB RATIO 0.9 (1.0-2.1); ALT/SGPT 20 U/L (9-52); AST/SGOT 42 U/L (14-36); BLOOD UREA NITROGEN 11 mg/dl (7-17); CALCIUM 8.9 mg/dL (8.4-10.2); GFR NON-AFRICAN AMERICAN > 60
[2018-12-14] MEDS ORDERED: Iodixanol 320 MG/ML 100 ML BOTTLE IV ONE (18:15)
[2018-12-14] MEDS ORDERED: Sodium Chloride 0.9% 50 ML IV ONE (18:15)
--- NOTE | 2018-12-14 19:00 | CT ---
PROCEDURE: CT Angiography Chest, Abdomen and Pelvis with and without intravenous contrast HISTORY: Chest pain COMPARISON: None. TECHNIQUE: Contiguous axial images of the chest, abdomen and pelvis were obtained in the phase of aortic enhancement. A noncontrast enhanced CT of the chest was also obtained to evaluate for possible intramural thrombus. Coronal and sagittal reformats were generated. IV dose administered: 90 cc Visipaque 320 Radiation dose: Total exam DLP = 1056.31 mGy-cm. This CT exam was performed using one or more of the following dose reduction techniques: Automated exposure control, adjustment of the mA and/or kV according to patient size, and/or use of iterative reconstruction technique. FINDINGS: CT ANGIOGRAPHY OF THE CHEST WITH & WITHOUT CONTRAST: AORTA (CHEST AND ABDOMEN): The thoracic and abdominal aorta are unremarkable, without aneurysm, dissection or rupture. No intramural thrombus identified in the thoracic aorta on the non-contrast CT of the chest. Minimal calcified plaque seen at the origins celiac axis, superior mesenteric artery, inferior mesenteric artery and the renal arteries although proximal margins of these vessels are patent. The pelvic arteries are are also patent despite some mild atherosclerotic plaque.. LUNGS: Mild passive/dependent type atelectasis both posterior lower lung wan. There is also elliptical shaped on opacity likely representing atelectasis and/or scarring in the left lingular region extending to the lateral pleural surface. MEDIASTINUM: Heart is mildly enlarged. No significant pericardial effusion.. Ascending thoracic aorta exhibits minor calcified plaque however no evidence of aortic aneurysm or dissection. Ascending thoracic aorta measures approximately 3.0 cm. Descending thoracic aorta measures approximately 2.1 cm. Pulmonary trunk measures approximately 2.3 cm.. No evidence of obvious filling defects within the visualized portions of the pulmonary trunk, right and left main, lobar, segmental or proximal subsegmental branches of the pulmonary arteries to suggest acute central pulmonary embolus. Eart. LYMPH NODES: No significant mediastinal or hilar adenopathy. PLEURA: Unremarkable. No pneumothorax. No pleural fluid. BONES: Minor multilevel degenerative spondylosis of the thoracic spine. There are no acute compression fractures nor retropulsed fragments. OTHER FINDINGS: None. CT ANGIOGRAPHY OF THE ABDOMEN AND PELVIS WITH CONTRAST: LIVER: Unremarkable. No gross lesion or ductal dilatation. GALLBLADDER AND BILE DUCTS: Cholecystectomy. PANCREAS: The pancreas appears slightly atrophic and fatty replaced. SPLEEN: Unremarkable. ADRENALS: Unremarkable. No mass. Slightly nodular appearing left adrenal gland. KIDNEYS AND URETERS: Unremarkable. No hydronephrosis. No solid mass. VASCULATURE: Unremarkable. No aortic aneurysm. No aortic atherosclerotic calcification or mural plaque present. STOMACH AND BOWEL: Scattered colonic diverticula however no radiographic evidence of acute a diverticulosis. Stomach is partially distended with food debris liquid and air. Visualized loops of small bowel exhibit normal contour and caliber. No evidence of acute mechanical small bowel obstruction. APPENDIX: No evidence of acute appendicitis. PERITONEUM: Unremarkable. No free fluid. No free air. LYMPH NODES: Unremarkable. No enlarged lymph nodes. BLADDER: Unremarkable. REPRODUCTIVE: Unremarkable. BONES: Multilevel degenerative spondylosis of the lumbar spine. The there are no acute compression fractures no retropulsed fragments. OTHER FINDINGS: None. IMPRESSION: No evidence of aortic dissection or aortic aneurysm. No evidence of acute central pulmonary embolus. Cholecystectomy. Slightly nodular left adrenal gland.
--- NOTE | 2018-12-14 21:02 | CP.PCM.CON ---
History of Present Illness - History of Present Illness History of Present Illness: Consultation for evaluation of chest pain /NSTEMI HPI: 62-year-old female with past medical history significant for hypertension diabe maye hyperlipidemia presented to the ED for complaints of sharp stabbing chest pain radiating to the back started last night patient apparently said pain was getting progressively worse associated with shortness of breath. Because of the pain radiating to where there was some concern regarding dissection for which she underwent a CT and CTA of the chest which showed no evidence of PE or aortic dissection there was noted to be severely calcific coronary artery disease. At the time of my evaluation at the bedside patient was having severe nausea and was throwing up with excruciating migraine headaches which she had a diagnosis since childhood. Past medical history as stated above significant for anxiety depression and arthritis hypertension diabetes hyperlipidemia migraine surgical history significant for cholecystectomy C-sections family history noncontributory social history significant for smoking Home medications include Lexapro Fioricet Valium Norvasc Lopressor Januvia Glucophage insulin Cozaar lavage and Tamiflu allergies no known drug allergies review of systems as stated above in HPI all other systems reviewed and are negative. Review of Systems - Review of Systems Systems not reviewed;Unavailable: Acuity of Condition - Constitutional Constitutional: As Per HPI - EENT Eyes: As Per HPI Ears: As Per HPI Nose/Mouth/Throat: As Per HPI - Breasts Breasts: As Per HPI - Cardiovascular Cardiovascular: As Per HPI - Respiratory Respiratory: As Per HPI - Gastrointestinal Gastrointestinal: As Per HPI - Genitourinary Genitourinary: As Per HPI - Reproductive: Female Reproductive:Female: As Per HPI - Menstruation Menstruation: As Per HPI - Musculoskeletal Musculoskeletal: As Per HPI - Integumentary Integumentary: As Per HPI - Neurological Neurological: As Per HPI - Psychiatric Psychiatric: As Per HPI - Endocrine Endocrine: As Per HPI - Hematologic/Lymphatic Hematologic: As Per HPI Past Patient History - Infectious Disease Hx of Infectious Diseases: None - Past Medical History & Family History Past Medical History?: Yes - Past Social History Alcohol: None Drugs: Denies - CARDIAC Hx Cardiac Disorders: Yes - PULMONARY Hx Respiratory Disorders: No - NEUROLOGICAL Hx Neurological Disorder: Yes - HEENT Hx HEENT Problems: No - RENAL Hx Chronic Kidney Disease: No - ENDOCRINE/METABOLIC Hx Endocrine Disorders: Yes - HEMATOLOGICAL/ONCOLOGICAL Hx Blood Disorders: No - INTEGUMENTARY Hx Dermatological Problems: No - MUSCULOSKELETAL/RHEUMATOLOGICAL Hx Musculoskeletal Disorders: Yes - GASTROINTESTINAL Hx Gastrointestinal Disorders: No Hx Vomiting: No - GENITOURINARY/GYNECOLOGICAL Hx Genitourinary Disorders: No - PSYCHIATRIC Hx Psychophysiologic Disorder: Yes - SURGICAL HISTORY Hx Cholecystectomy: Yes - ANESTHESIA Hx Anesthesia: Yes Hx Anesthesia Reactions: No Hx Malignant Hyperthermia: No Meds Allergies/Adverse Reactions: Allergies Allergy/AdvReac Type Severity Reaction Status Date / Time No Known Allergies Allergy Verified 04/22/18 12:49 - Medications Medications: Current Medications Acetaminophen/Butalbital/Caffeine (Fioricet) 2 tab PO Q6 PRN PRN Reason: Headache Diazepam (Valium) 10 mg PO Q12 CHRIST Sodium Chloride (Sodium Chloride 0.9%) 1,000 mls @ 100 mls/hr IV .Q10H STA Stop: 12/14/18 23:03 Last Admin: 12/14/18 13:11 Dose: 100 mls/hr Ondansetron HCl (Zofran Inj) 4 mg IVP Q4 PRN PRN Reason: Nausea/Vomiting Physical Exam - Constitutional Appears: Well - Head Exam Head Exam: ATRAUMATIC, NORMAL INSPECTION, NORMOCEPHALIC - Eye Exam Eye Exam: EOMI, Normal appearance, PERRL Pupil Exam: NORMAL ACCOMODATION, PERRL - ENT Exam ENT Exam: Mucous Membranes Moist, Normal Exam - Neck Exam Neck exam: Positive for: Normal Inspection - Respiratory Exam Respiratory Exam: Clear to Auscultation Bilateral, NORMAL BREATHING PATTERN - Cardiovascular Exam Cardiovascular Exam: REGULAR RHYTHM - GI/Abdominal Exam GI & Abdominal Exam: Normal Bowel Sounds, Soft. absent: Tenderness - Extremities Exam Extremities exam: Positive for: normal inspection - Back Exam Back exam: NORMAL INSPECTION - Neurological Exam Neurological exam: Alert, CN II-XII Intact, Normal Gait, Oriented x3, Reflexes Normal - Psychiatric Exam Psychiatric exam: Normal Affect, Normal Mood - Skin Skin Exam: Dry, Intact, Normal Color, Warm Results - Vital Signs Recent Vital Signs: Last Vital Signs Temp 97.9 F 12/14/18 20:32 Pulse 105 H 12/14/18 20:32 Resp 18 12/14/18 20:32 BP 135/81 12/14/18 20:32 Pulse Ox 93 L 12/14/18 20:32 - Labs Result Diagrams: 12/14/18 13:51 12/14/18 15:17 Labs: Laboratory Results - last 24 hr 12/14/18 12/14/18 12/14/18 13:51 13:51 15:02 WBC 7.9 D RBC 4.90 Hgb 13.6 Hct 42.3 MCV 86.2 MCH 27.8 MCHC 32.2 L RDW 13.6 Plt Count 330 MPV 8.1 Neut % (Auto) 61.0 Lymph % (Auto) 24.7 Lamar % (Auto) 6.9 Eos % (Auto) 6.3 H Baso % (Auto) 1.1 Neut # (Auto) 4.8 Lymph # (Auto) 1.9 Lamar # (Auto) 0.5 Eos # (Auto) 0.5 Baso # (Auto) 0.1 D-Dimer, Quantitative 541 H Sodium 132 Potassium 6.1 H Chloride 100 Carbon Dioxide 20 L Anion Gap 18 BUN 11 Creatinine 0.7 Est GFR ( Amer) > 60 Est GFR (Non-Af Amer) > 60 Random Glucose 419 H* D Calcium 8.7 Total Bilirubin 0.8 AST 59 H D ALT 10 Alkaline Phosphatase 98 Troponin I 0.1260 H* Total Protein 6.9 Albumin 3.2 L Globulin 3.7 Albumin/Globulin Ratio 0.9 L 12/14/18 15:17 WBC RBC Hgb Hct MCV MCH MCHC RDW Plt Count MPV Neut % (Auto) Lymph % (Auto) Lamar % (Auto) Eos % (Auto) Baso % (Auto) Neut # (Auto) Lymph # (Auto) Lamar # (Auto) Eos # (Auto) Baso # (Auto) D-Dimer, Quantitative Sodium 132 Potassium 3.4 L Chloride 99 Carbon Dioxide 21 L Anion Gap 15 BUN 11 Creatinine 0.7 Est GFR ( Amer) > 60 Est GFR (Non-Af Amer) > 60 Random Glucose 413 H* Calcium 8.9 Total Bilirubin 0.1 L AST 42 H D ALT 20 Alkaline Phosphatase 119 Troponin I Total Protein 6.5 Albumin 3.0 L Globulin 3.5 Albumin/Globulin Ratio 0.9 L Assessment & Plan (1) ACS (acute coronary syndrome) Assessment and Plan: IV heparin per ACS protocol asa plavix statins bb echo plan for LHCx once echo done possibly Wednesday am Status: Acute (2) Chest pain Status: Acute (3) Hx of migraines Assessment and Plan: resume fioricet Status: Chronic Priority: High (4) Hypertension Status: Chronic Priority: High
[2018-12-14] MEDS ORDERED: Enoxaparin 80 mg Syringe SC STA (21:04)
[2018-12-14] MEDS: Apap-Butalbital-Caffeine 325-50-40mg Tab PO PRN (21:55)
[2018-12-14] MEDS ORDERED: Insulin Detemir 100 Units/ml Inj SC SCH (22:15)
[2018-12-14] MEDS: Insulin Regular 100 units/ml SC SCH (23:27)
[2018-12-15 06:12] LABS: HEMOGLOBIN 13.3 g/dL (12.0-16.0); MEAN CELL VOLUME 84.4 fl (81.0-99.0); MEAN CORPUSCULAR HGB CONC 33.2 g/dL (33.0-37.0); RBC 4.74 Mil/uL (3.80-5.20); RED CELL DISTRIBUTION WIDTH 13.4 % (11.5-14.5); WHITE BLOOD COUNT 7.2 K/uL (4.8-10.8)
[2018-12-15 06:31] LABS: LDL CHOLESTEROL 137 mg/dL (0-129)
[2018-12-15 06:32] LABS: T4 6.12 ug/dl (5.5-11.0)
[2018-12-15] MEDS: Insulin Regular 100 units/ml SC SCH ×2 (06:32→12:36)
[2018-12-15 06:55] LABS: ALB/GLOB RATIO 0.9 (1.0-2.1); ALT/SGPT 22 U/L (9-52); AST/SGOT 91 U/L (14-36); BLOOD UREA NITROGEN 12 mg/dl (7-17); CALCIUM 8.6 mg/dL (8.4-10.2); GFR NON-AFRICAN AMERICAN > 60; HDL CHOLESTEROL 44 MG/DL (30-70)
[2018-12-15] MEDS: Apap-Butalbital-Caffeine 325-50-40mg Tab PO PRN (09:14)
[2018-12-15] MEDS ORDERED: Insulin Regular 100 units/ml SC SCH (09:15)
[2018-12-15] MEDS: Enoxaparin 80 mg Syringe SC SCH ×2 (09:17→21:38)
[2018-12-15] MEDS: Pantoprazole 40 mg EC Tab PO SCH (09:19)
--- NOTE | 2018-12-15 10:25 | CARD ---
APPROVED REPORT Date of service: 12/15/2018 EKG Measurement Heart [id number] <Conclusion> Sinus tachycardia with 1st degree AV block Nonspecific T wave abnormality Abnormal ECG
[2018-12-15] MEDS ORDERED: Perflutren Lipid Microsphere 1.5 ML SUS IV ONE (11:08)
--- NOTE | 2018-12-15 11:55 | CP.PCM.HP ---
History of Present Illness - History of Present Illness History of Present Illness: CC: Chest pain. 62 y/o F, with multiple chronic medical condition, including: IDDM, HTN, Dyslipidemia, ,Migraine, O/A, brought to [facility] on 12[facility]18 to be evaluated for Chest pain , onset day [employer], described as Midsternal pain, pressure/heaviness type, sharp, constant, moderate intensity 7:10, radiated to back. Associated to SOB, headache, high BP 151/101, HR 109. Pt taking BP meds at home with no relief. Worsening symptoms: Anxious, Found with BS: 413 Aggravated factor: ADL's, changing positions. Pt denied: Fever, chills, syncope, cough, legs swelling, n/v/d, abdominal pain, sick contact, recent travel out of [facility] EKG: Sinus bradycardia with 1st degree block. Angiography: No evidence of aortic dissection or aortic aneurism. No acute pulmonary embolus. CXR: No active disease. Present on Admission - Present on Admission Any Indicators Present on Admission: Yes History of Uncontrolled Diabetes: Yes Review of Systems - Constitutional Constitutional: Headache - EENT Eyes: Requires Corrective Lenses Ears: Other (negative) Nose/Mouth/Throat: Other (negative) - Cardiovascular Cardiovascular: Chest Pain - Respiratory Respiratory: Dyspnea - Gastrointestinal Gastrointestinal: Other (negative) - Genitourinary Genitourinary: Other (negative) - Musculoskeletal Musculoskeletal: Arthralgias - Integumentary Integumentary: Other (negative) - Neurological Neurological: Headaches - Psychiatric Psychiatric: Anxiety, Depression - Endocrine Endocrine: Other (negative) - Hematologic/Lymphatic Hematologic: Other (negative) Past Patient History - Infectious Disease Hx of Infectious Diseases: None - Past Medical History & Family History Past Medical History?: Yes Pertinent Family History: Unknown - Past Social History Smoking Status: Never Smoked Alcohol: None Drugs: Denies Home Situation {Lives}: Alone - CARDIAC Hx Cardiac Disorders: Yes Hx Hypercholesterolemia: Yes Hx Hypertension: Yes - PULMONARY Hx Respiratory Disorders: No - NEUROLOGICAL Hx Neurological Disorder: Yes Hx Migraine: Yes - HEENT Hx HEENT Problems: No - RENAL Hx Chronic Kidney Disease: No - ENDOCRINE/METABOLIC Hx Endocrine Disorders: Yes Hx Diabetes Mellitus Type 2: Yes - HEMATOLOGICAL/ONCOLOGICAL Hx Blood Disorders: No - INTEGUMENTARY Hx Dermatological Problems: No - MUSCULOSKELETAL/RHEUMATOLOGICAL Hx Musculoskeletal Disorders: Yes Hx Arthritis: Yes Hx Falls: No - GASTROINTESTINAL Hx Gastrointestinal Disorders: No Hx Vomiting: Yes - GENITOURINARY/GYNECOLOGICAL Hx Genitourinary Disorders: No - PSYCHIATRIC Hx Psychophysiologic Disorder: Yes Hx Anxiety: Yes Hx Substance Use: No - SURGICAL HISTORY Hx Section: Yes Hx Cholecystectomy: Yes - ANESTHESIA Hx Anesthesia: Yes Hx Anesthesia Reactions: No Hx Malignant Hyperthermia: No Has any member of the family had a problem w/ anesthesia?: No Meds Allergies/Adverse Reactions: Allergies Allergy/AdvReac Type Severity Reaction Status Date / Time No Known Allergies Allergy Verified 04/22/18 12:49 Physical Exam - Constitutional Appears: No Acute Distress - Head Exam Head Exam: NORMAL INSPECTION - Eye Exam Eye Exam: PERRL - ENT Exam ENT Exam: Normal Exam - Neck Exam Neck exam: Positive for: Normal Inspection - Respiratory Exam Respiratory Exam: NORMAL BREATHING PATTERN - Cardiovascular Exam Cardiovascular Exam: REGULAR RHYTHM - GI/Abdominal Exam GI & Abdominal Exam: Normal Bowel Sounds, Soft - Extremities Exam Extremities exam: Positive for: normal inspection - Back Exam Back exam: NORMAL INSPECTION - Neurological Exam Neurological exam: Alert, CN II-XII Intact, Oriented x3, Reflexes Normal - Psychiatric Exam Psychiatric exam: Anxious - Skin Skin Exam: Normal Color, Warm Results - Vital Signs Recent Vital Signs: Last Vital Signs Temp 97.9 F 12/15/18 08:37 Pulse 109 H 12/15/18 09:18 Resp 20 12/15/18 08:37 BP 170/97 H 12/15/18 09:18 Pulse Ox 93 L 12/15/18 08:37 reviewed J.PQuintin - Labs Result Diagrams: 12/18/18 06:04 12/18/18 06:04 Labs: Laboratory Results - last 24 hr 12/14/18 12/14/18 12/14/18 12:42 13:51 13:51 WBC 7.9 D RBC 4.90 Hgb 13.6 Hct 42.3 MCV 86.2 MCH 27.8 MCHC 32.2 L RDW 13.6 Plt Count 330 MPV 8.1 Neut % (Auto) 61.0 Lymph % (Auto) 24.7 Price % (Auto) 6.9 Eos % (Auto) 6.3 H Baso % (Auto) 1.1 Neut # (Auto) 4.8 Lymph # (Auto) 1.9 Price # (Auto) 0.5 Eos # (Auto) 0.5 Baso # (Auto) 0.1 D-Dimer, Quantitative Sodium 132 Potassium 6.1 H Chloride 100 Carbon Dioxide 20 L Anion Gap 18 BUN 11 Creatinine 0.7 Est GFR ( Amer) > 60 Est GFR (Non-Af Amer) > 60 POC Glucose (mg/dL) 349 H Random Glucose 419 H* D Calcium 8.7 Phosphorus Magnesium Total Bilirubin 0.8 AST 59 H D ALT 10 Alkaline Phosphatase 98 Troponin I 0.1260 H* Total Protein 6.9 Albumin 3.2 L Globulin 3.7 Albumin/Globulin Ratio 0.9 L Triglycerides Cholesterol LDL Cholesterol Direct HDL Cholesterol Thyroxine (T4) TSH 3rd Generation 12/14/18 12/14/18 12/14/18 14:48 15:02 15:17 WBC RBC Hgb Hct MCV MCH MCHC RDW Plt Count MPV Neut % (Auto) Lymph % (Auto) Price % (Auto) Eos % (Auto) Baso % (Auto) Neut # (Auto) Lymph # (Auto) Price # (Auto) Eos # (Auto) Baso # (Auto) D-Dimer, Quantitative 541 H Sodium 132 Potassium 3.4 L Chloride 99 Carbon Dioxide 21 L Anion Gap 15 BUN 11 Creatinine 0.7 Est GFR ( Amer) > 60 Est GFR (Non-Af Amer) > 60 POC Glucose (mg/dL) 365 H Random Glucose 413 H* Calcium 8.9 Phosphorus Magnesium Total Bilirubin 0.1 L AST 42 H D ALT 20 Alkaline Phosphatase 119 Troponin I Total Protein 6.5 Albumin 3.0 L Globulin 3.5 Albumin/Globulin Ratio 0.9 L Triglycerides Cholesterol LDL Cholesterol Direct HDL Cholesterol Thyroxine (T4) TSH 3rd Generation 12/14/18 12/14/18 12/14/18 17:28 22:18 23:30 WBC RBC Hgb Hct MCV MCH MCHC RDW Plt Count MPV Neut % (Auto) Lymph % (Auto) Price % (Auto) Eos % (Auto) Baso % (Auto) Neut # (Auto) Lymph # (Auto) Price # (Auto) Eos # (Auto) Baso # (Auto) D-Dimer, Quantitative Sodium Potassium Chloride Carbon Dioxide Anion Gap BUN Creatinine Est GFR ( Amer) Est GFR (Non-Af Amer) POC Glucose (mg/dL) 270 H 289 H Random Glucose Calcium Phosphorus Magnesium Total Bilirubin AST ALT Alkaline Phosphatase Troponin I 6.5900 H* Total Protein Albumin Globulin Albumin/Globulin Ratio Triglycerides Cholesterol LDL Cholesterol Direct HDL Cholesterol Thyroxine (T4) TSH 3rd Generation 12/15/18 12/15/18 12/15/18 05:15 05:15 05:52 WBC 7.2 RBC 4.74 Hgb 13.3 Hct 40.0 MCV 84.4 MCH 28.0 MCHC 33.2 RDW 13.4 Plt Count 328 MPV Neut % (Auto) Lymph % (Auto) Price % (Auto) Eos % (Auto) Baso % (Auto) Neut # (Auto) Lymph # (Auto) Price # (Auto) Eos # (Auto) Baso # (Auto) D-Dimer, Quantitative Sodium 135 Potassium 4.0 Chloride 99 Carbon Dioxide 24 Anion Gap 16 BUN 12 Creatinine 0.8 Est GFR ( Amer) > 60 Est GFR (Non-Af Amer) > 60 POC Glucose (mg/dL) 339 H Random Glucose 365 H Calcium 8.6 Phosphorus 5.1 H Magnesium 1.5 L Total Bilirubin 0.1 L AST 91 H D ALT 22 Alkaline Phosphatase 119 Troponin I Total Protein 6.3 Albumin 3.0 L Globulin 3.4 Albumin/Globulin Ratio 0.9 L Triglycerides 495 H D Cholesterol 280 H LDL Cholesterol Direct 137 H HDL Cholesterol 44 Thyroxine (T4) 6.12 TSH 3rd Generation 1.02 12/15/18 08:40 WBC RBC Hgb Hct MCV MCH MCHC RDW Plt Count MPV Neut % (Auto) Lymph % (Auto) Price % (Auto) Eos % (Auto) Baso % (Auto) Neut # (Auto) Lymph # (Auto) Price # (Auto) Eos # (Auto) Baso # (Auto) D-Dimer, Quantitative Sodium Potassium Chloride Carbon Dioxide Anion Gap BUN Creatinine Est GFR ( Amer) Est GFR (Non-Af Amer) POC Glucose (mg/dL) Random Glucose Calcium Phosphorus Magnesium Total Bilirubin AST ALT Alkaline Phosphatase Troponin I 24.6000 H* Total Protein Albumin Globulin Albumin/Globulin Ratio Triglycerides Cholesterol LDL Cholesterol Direct HDL Cholesterol Thyroxine (T4) TSH 3rd Generation reviewed J.P. - EKG Data EKG comments: reviewed J.P. - Imaging and Cardiology Chest x-ray Status: Report reviewed by me (J.P.) Angiography CT Status: Report reviewed by me Assessment & Plan (1) Chest pain Status: Acute Priority: High (2) ACS (acute coronary syndrome) Assessment and Plan: NSTMI Status: Acute Priority: High (3) Diabetes mellitus, insulin dependent (IDDM), uncontrolled Status: Acute Priority: High (4) Hyperglycemia Status: Acute Priority: High (5) Hypertension Status: Chronic Priority: High (6) Head ache Status: Chronic Priority: High (7) Dyslipidemia Status: Acute Priority: High (8) Hx of migraines Status: Chronic Priority: High (9) Anxiety Status: Chronic Priority: Medium - Assessment and Plan (Free Text) Plan: F/U Echo, Norvasc, Lopressor, Fioricet, Plavix, Lovenox, Insulin, Valium and rest of Tx. Cardiac consult appreciated. For cardiac Cath today at [facility]. - Date & Time Date: 12/15/18 Time: 11:40
[2018-12-15] MEDS: Insulin Lispro (humaLOG) 100 Units/ml Inj SC SCH ×4 (12:36→16:16)
--- NOTE | 2018-12-15 21:34 | CP.PCM.PN ---
<David Espitia - Last Filed: 12/15/18 21:30> Subjective - Date & Time of Evaluation Date of Evaluation: 12/15/18 Time of Evaluation: 21:30 - Subjective Subjective: David Espitia DO PGY1 - Internal Medicine Implementation Director - Cardiology Note for Dr. Soria Patient underwent cardiac cath today [place] [facility] [place] Tolerated procedure well; no complaints reported. Objective - Vital Signs/Intake and Output Vital Signs (last 24 hours): Temp Pulse Resp BP Pulse Ox 98.4 F 107 H 18 164/81 H 96 12/15/18 12:37 12/15/18 12:37 12/15/18 12:37 12/15/18 12:37 12/15/18 12:37 - Medications Medications: Current Medications Acetaminophen/Butalbital/Caffeine (Fioricet) 2 tab PO Q6 PRN PRN Reason: Headache Last Admin: 12/15/18 09:14 Dose: 2 tab Amlodipine Besylate (Norvasc) 10 mg PO DAILY [facility] Last Admin: 12/15/18 09:18 Dose: 10 mg Aspirin (Aspirin Chewable) 81 mg PO DAILY [facility] Last Admin: 12/15/18 10:43 Dose: 81 mg Clopidogrel Bisulfate (Plavix) 75 mg PO DAILY [facility] Last Admin: 12/15/18 10:43 Dose: 75 mg Diazepam (Valium) 10 mg PO Q12 [facility] Last Admin: 12/15/18 09:54 Dose: 10 mg Dicyclomine HCl (Bentyl) 10 mg PO Q8 PRN PRN Reason: ABDOMINAL CRAMPS Enoxaparin Sodium (Lovenox) 80 mg SC Q12 [facility]; Protocol Last Admin: 12/15/18 09:17 Dose: 80 mg Insulin Detemir (Levemir) 60 units SC HS [facility] Insulin Human Lispro (Humalog) 24 units SC AC [facility] Last Admin: 12/15/18 16:15 Dose: Not Given Insulin Human Lispro (Humalog) 0 units SC ACHS [facility] Last Admin: 12/15/18 16:16 Dose: Not Given Losartan Potassium (Cozaar) 100 mg PO DAILY [facility] Last Admin: 12/15/18 09:13 Dose: 100 mg Metoprolol Tartrate (Lopressor) 25 mg PO Q12 [facility] Last Admin: 12/15/18 09:16 Dose: 25 mg Olanzapine (Zyprexa) 5 mg PO HS [facility] Last Admin: 12/14/18 22:01 Dose: 5 mg Ondansetron HCl (Zofran Inj) 4 mg IVP Q4 PRN PRN Reason: Nausea/Vomiting Last Admin: 12/14/18 21:23 Dose: 4 mg Pantoprazole Sodium (Protonix Ec Tab) 40 mg PO DAILY [facility] Last Admin: 12/15/18 09:19 Dose: 40 mg - Labs Labs: 12/15/18 05:15 12/15/18 05:15 - Constitutional Appears: Well - Head Exam Head Exam: ATRAUMATIC, NORMAL INSPECTION, NORMOCEPHALIC - Eye Exam Eye Exam: EOMI, Normal appearance, PERRL Pupil Exam: NORMAL ACCOMODATION, PERRL - ENT Exam ENT Exam: Mucous Membranes Moist, Normal Exam - Neck Exam Neck exam: Positive for: Normal Inspection - Respiratory Exam Respiratory Exam: Clear to Auscultation Bilateral, NORMAL BREATHING PATTERN - Cardiovascular Exam Cardiovascular Exam: REGULAR RHYTHM - GI/Abdominal Exam GI & Abdominal Exam: Normal Bowel Sounds, Soft. absent: Tenderness - Extremities Exam Extremities exam: Positive for: normal inspection - Back Exam Back exam: NORMAL INSPECTION - Neurological Exam Neurological exam: Alert, CN II-XII Intact, Normal Gait, Oriented x3, Reflexes Normal - Psychiatric Exam Psychiatric exam: Normal Affect, Normal Mood - Skin Skin Exam: Dry, Intact, Normal Color, Warm Assessment and Plan (1) ACS (acute coronary syndrome) Status: Acute (2) Chest pain Status: Acute (3) Hypertension Status: Chronic - Assessment and Plan (Free Text) Plan: During cardiac cath, x2 MARTY placed in proximal LAD ; can plan for discharge within 24-48H if patient tolerating well. Can follow up as outpt within 1wk forfor staged PCI of RCA. C/w Aspirin Plavix Statin BB ARB Lovenox 80 Q12 <Hunter Soria - Last Filed: 12/21/18 18:02> Objective - Vital Signs/Intake and Output Vital Signs (last 24 hours): Temp Pulse Resp BP Pulse Ox 98.2 F 117 H 18 138/76 98 12/18/18 13:00 12/18/18 13:00 12/18/18 13:00 12/18/18 13:00 12/18/18 13:00 - Labs Labs: 12/18/18 06:04 12/18/18 06:04 Assessment and Plan (1) ACS (acute coronary syndrome) Status: Acute (2) Chest pain Status: Resolved (3) Hx of migraines Status: Chronic (4) Hypertension Status: Chronic Attending/Attestation - Attestation I have personally seen and examined this patient.: Yes I have fully participated in the care of the patient.: Yes I have reviewed all pertinent clinical information, including history, physical exam and plan: Yes
[2018-12-15] MEDS ORDERED: Insulin Detemir 100 Units/ml Inj SC SCH (22:00)
[2018-12-16] MEDS: Apap-Butalbital-Caffeine 325-50-40mg Tab PO PRN ×3 (00:30→18:39)
[2018-12-16] MEDS: Insulin Lispro (humaLOG) 100 Units/ml Inj SC SCH ×8 (00:35→22:32)
--- NOTE | 2018-12-16 03:24 | CON ---
DATE: 12/15/2018 ENDOCRINOLOGY CONSULTATION LOCATION: Room 410. HISTORY OF PRESENT ILLNESS: This is a 62-year-old female with known history of type 2 insulin-requiring diabetes, presenting here with sudden onset of precordial chest pain, persistent and worsening from the time of admission with supervening shortness of breath and evaluated to have acute coronary syndrome with elevated troponins and is now being referred for diabetic evaluation and management. PAST MEDICAL HISTORY: History of type 2 insulin-requiring diabetes on a combination of Levemir taken as 40 units at bedtime and Humalog taken as 20 units t.i.d. before meals. History of hypertension and dyslipidemia. History of diabetic retinopathy and polyneuropathy with underlying coronary artery disease and peripheral arterial disease and vasculopathy. She has had previous admissions also for lower extremity cellulitis. FAMILY HISTORY: Positive for diabetes and hypertension. SOCIAL HISTORY: The patient has a supportive family. Admits to previous history of smoking. REVIEW OF SYSTEMS: Admits to generalized body weakness with episodic bouts of dizziness and lightheadedness, worse on the day of admission. Admits to sudden onset of precordial chest pain, initially in the precordial area and now radiating to the entire precordium and midsternal area with supervening shortness of breath, especially on exertion. Her oral intake has been variable with nausea, dyspepsia, and vague upper abdominal pains. Also admits to marked polyuria, nocturia, and polydipsia. PHYSICAL EXAMINATION: GENERAL: This is an overweight female, in no apparent distress. VITAL SIGNS: Blood pressure of 150/90, pulse of 100 beats per minute and regular, temperature 98, respirations 20. Height is 5 feet 3 inches, weight is 200 pounds. HEENT: Head: Normocephalic. Eyes: Anicteric with pink conjunctivae. Funduscopy not possible at this time. Ears, Nose, and Throat: Otherwise normal. NECK: Supple. Thyroid gland is normal size. No carotid bruits or cervical adenopathy. CARDIOPULMONARY: Some adynamic precordium. S1, S2, rapid and regular. LUNGS: Clear to auscultation. ABDOMEN: Flat, soft with positive bowel sounds. EXTREMITIES: No peripheral edema. Pulses are +2 bilaterally. LABORATORY DATA: Chemistry showed a BUN of 12, sodium 135, potassium 4, chloride 99, CO2 of 24, glucose 365, and creatinine 0.8. Her glucose levels are extremely elevated ranging from 289 to 339 and 286 mg/dL. Her troponin initially was 6.9 with a repeat level of 24.6. ASSESSMENT: This is a 62-year-old female with uncontrolled, decompensated type 2 insulin-requiring diabetes, now admitted with acute coronary syndrome and also concomitant marked hyperglycemic accelerations. We do not have a strong history of suboptimal metabolic control despite the use of an insulin combination therapy as noted. She also has diabetic microvascular complications of retinopathy and polyneuropathy with diabetic macrovascular complications of coronary artery disease and peripheral arterial disease and vasculopathy. PLAN OF MANAGEMENT: We will modify her current insulin regimen and switch her over of the regular insulin as ordered to a rapid-acting insulin analog with Humalog to be given as 24 units t.i.d. before meals to start today as ordered. We also increased the Levemir to 60 units subcu at bedtime daily to start tonight. We will modify the coverage scale to a low dose algorithm using Humalog insulin to obviate hypoglycemia and detailed orders have been given. We will obtain a hemoglobin A1c to confirm her prior glycemic control and baseline thyroid function studies will be ordered. Melissa Gardner MD
[2018-12-16] MEDS: Enoxaparin 80 mg Syringe SC SCH (08:49)
[2018-12-16] MEDS: Pantoprazole 40 mg EC Tab PO SCH (08:50)
--- NOTE | 2018-12-16 11:59 | CARD ---
APPROVED REPORT Date of service: 12/14/2018 EKG Measurement Heart [id number] <Conclusion> Sinus tachycardia Possible Left atrial enlargement Left ventricular hypertrophy Nonspecific T wave abnormality Abnormal ECG
--- NOTE | 2018-12-16 13:56 | CP.PCM.PN ---
Subjective - Date & Time of Evaluation Date of Evaluation: 12/16/18 Time of Evaluation: 13:20 - Subjective Subjective: F/U CP. S/P Cardiac Cath Pt awake, no c/o, no CP, no SOB. Objective - Vital Signs/Intake and Output Vital Signs (last 24 hours): Temp Pulse Resp BP Pulse Ox 99 F 111 H 20 143/81 93 L 12/16/18 08:46 12/16/18 08:49 12/16/18 08:46 12/16/18 08:49 12/16/18 08:46 - Medications Medications: Current Medications Acetaminophen/Butalbital/Caffeine (Fioricet) 2 tab PO Q6 PRN PRN Reason: Headache Last Admin: 12/16/18 08:47 Dose: 2 tab Amlodipine Besylate (Norvasc) 10 mg PO DAILY [facility] Last Admin: 12/16/18 08:49 Dose: 10 mg Aspirin (Aspirin Chewable) 81 mg PO DAILY [facility] Last Admin: 12/16/18 08:45 Dose: 81 mg Clopidogrel Bisulfate (Plavix) 75 mg PO DAILY [facility] Last Admin: 12/16/18 08:50 Dose: 75 mg Diazepam (Valium) 10 mg PO Q12 [facility] Last Admin: 12/16/18 11:13 Dose: 10 mg Dicyclomine HCl (Bentyl) 10 mg PO Q8 PRN PRN Reason: ABDOMINAL CRAMPS Insulin Detemir (Levemir) 44 units SC HS [facility] Insulin Human Lispro (Humalog) 0 units SC ACHS [facility] Last Admin: 12/16/18 11:11 Dose: Not Given Insulin Human Lispro (Humalog) 14 units SC AC [facility] Last Admin: 12/16/18 12:24 Dose: 14 unit Losartan Potassium (Cozaar) 100 mg PO DAILY [facility] Last Admin: 12/16/18 08:46 Dose: 100 mg Metoprolol Tartrate (Lopressor) 25 mg PO Q12 [facility] Last Admin: 12/16/18 08:49 Dose: 25 mg Olanzapine (Zyprexa) 5 mg PO HS [facility] Last Admin: 12/16/18 00:28 Dose: 5 mg Ondansetron HCl (Zofran Inj) 4 mg IVP Q4 PRN PRN Reason: Nausea/Vomiting Last Admin: 12/14/18 21:23 Dose: 4 mg Pantoprazole Sodium (Protonix Ec Tab) 40 mg PO DAILY [facility] Last Admin: 12/16/18 08:50 Dose: 40 mg - Labs Labs: 12/15/18 05:15 12/15/18 05:15 - Constitutional Appears: No Acute Distress - Head Exam Head Exam: NORMAL INSPECTION - Eye Exam Eye Exam: PERRL - ENT Exam ENT Exam: Normal Exam - Neck Exam Neck Exam: Normal Inspection - Respiratory Exam Respiratory Exam: NORMAL BREATHING PATTERN - Cardiovascular Exam Cardiovascular Exam: REGULAR RHYTHM - GI/Abdominal Exam GI & Abdominal Exam: Soft, Normal Bowel Sounds - Extremities Exam Additional comments: ecchymosis , edema Left forearm ( Cardiac Cath ) - Back Exam Back Exam: NORMAL INSPECTION - Neurological Exam Neurological Exam: Alert, Awake, CN II-XII Intact, Oriented x3 - Psychiatric Exam Psychiatric exam: Anxious - Skin Skin Exam: Warm Assessment and Plan (1) Chest pain Status: Resolved (2) ACS (acute coronary syndrome) Assessment & Plan: NSTMI Status: Acute (3) Diabetes mellitus, insulin dependent (IDDM), uncontrolled Status: Acute (4) Hyperglycemia Status: Acute (5) Hypertension Status: Chronic (6) Head ache Status: Chronic (7) Dyslipidemia Status: Acute (8) Hx of migraines Status: Chronic (9) Anxiety Status: Chronic (10) S/P cardiac cath Assessment & Plan: 2 stents Status: Acute - Assessment and Plan (Free Text) Plan: Continue Plavix, Cozaar, Lopressor, Norvasc and rest of Tx. As per cardiology continue observation post Cardiac Cath
--- NOTE | 2018-12-16 14:22 | PQF ---
PROVIDER RESPONSE TEXT: NSTEMI REVIEWER QUERY TEXT: Documentation Clarification Your help is requested in clarifying the following clinical documentation, if you can please further specify in the medical record and discharge summary. ACS ( Acute Coronary Syndrome ) is a non-specific term. Please clarify if the diagnosis of ACS is ref erring to Unstable Angina or Acute Myocardial Infarction. The patient's Clinical Indicators include: C/O Chest pain , onset day [employer], described as Midsternal pain, pressure/heaviness type, sharp, constan t, moderate intensity 7:10, radiated to back. Associated to SOB, headache, high BP 151/101, HR 109.Pt taking BP meds at home with no relief. Troponins: 0.126, 6.59, 24.6 EKG : Sinus tachycardia with 1st degree AV Block, Nonspecific T wave abnormality For Cardiac Catheterization Rx: ASA, Plavix, Lopressor Query created by: Sharlene Henley on 12/15/2018 2:07 PM Electronically signed by: Johnnie Nice MD 12/16/2018 2:19 PM
--- NOTE | 2018-12-16 19:19 | CP.PCM.PN ---
<David Espitia - Last Filed: 12/16/18 19:13> Subjective - Date & Time of Evaluation Date of Evaluation: 12/16/18 Time of Evaluation: 19:13 - Subjective Subjective: David Espitia DO PGY1 - Internal Medicine Stepdown Nurse - Cardiology Note for Dr. Soria Patient was seen and evaluated at bedside this morning, no acute events reported overnight. Patient tolerated cardiac cath well. Denies any complaints of chest pain, shortness of breath, palpitations. Objective - Vital Signs/Intake and Output Vital Signs (last 24 hours): Temp Pulse Resp BP Pulse Ox 99.5 F 122 H 18 131/69 96 12/16/18 16:28 12/16/18 16:28 12/16/18 16:28 12/16/18 16:28 12/16/18 16:28 - Medications Medications: Current Medications Acetaminophen/Butalbital/Caffeine (Fioricet) 2 tab PO Q6 PRN PRN Reason: Headache Last Admin: 12/16/18 18:39 Dose: 2 tab Amlodipine Besylate (Norvasc) 10 mg PO DAILY [facility] Last Admin: 12/16/18 08:49 Dose: 10 mg Aspirin (Aspirin Chewable) 81 mg PO DAILY [facility] Last Admin: 12/16/18 08:45 Dose: 81 mg Clopidogrel Bisulfate (Plavix) 75 mg PO DAILY [facility] Last Admin: 12/16/18 08:50 Dose: 75 mg Diazepam (Valium) 10 mg PO Q12 [facility] Last Admin: 12/16/18 11:13 Dose: 10 mg Dicyclomine HCl (Bentyl) 10 mg PO Q8 PRN PRN Reason: ABDOMINAL CRAMPS Insulin Detemir (Levemir) 44 units SC HS [facility] Insulin Human Lispro (Humalog) 0 units SC ACHS [facility] Last Admin: 12/16/18 18:19 Dose: Not Given Insulin Human Lispro (Humalog) 14 units SC AC [facility] Last Admin: 12/16/18 18:20 Dose: 14 unit Losartan Potassium (Cozaar) 100 mg PO DAILY [facility] Last Admin: 12/16/18 08:46 Dose: 100 mg Metoprolol Tartrate (Lopressor) 25 mg PO Q12 [facility] Last Admin: 12/16/18 08:49 Dose: 25 mg Olanzapine (Zyprexa) 5 mg PO HS [facility] Last Admin: 12/16/18 00:28 Dose: 5 mg Ondansetron HCl (Zofran Inj) 4 mg IVP Q4 PRN PRN Reason: Nausea/Vomiting Last Admin: 12/14/18 21:23 Dose: 4 mg Pantoprazole Sodium (Protonix Ec Tab) 40 mg PO DAILY [facility] Last Admin: 12/16/18 08:50 Dose: 40 mg - Labs Labs: 12/15/18 05:15 12/15/18 05:15 - Constitutional Appears: Well - Head Exam Head Exam: ATRAUMATIC, NORMAL INSPECTION, NORMOCEPHALIC - Eye Exam Eye Exam: EOMI, Normal appearance, PERRL Pupil Exam: NORMAL ACCOMODATION, PERRL - ENT Exam ENT Exam: Mucous Membranes Moist, Normal Exam - Neck Exam Neck exam: Positive for: Normal Inspection - Respiratory Exam Respiratory Exam: Clear to Auscultation Bilateral, NORMAL BREATHING PATTERN - Cardiovascular Exam Cardiovascular Exam: REGULAR RHYTHM - GI/Abdominal Exam GI & Abdominal Exam: Normal Bowel Sounds, Soft. absent: Tenderness - Extremities Exam Extremities exam: Positive for: normal inspection - Back Exam Back exam: NORMAL INSPECTION - Neurological Exam Neurological exam: Alert, CN II-XII Intact, Normal Gait, Oriented x3, Reflexes Normal - Psychiatric Exam Psychiatric exam: Normal Affect, Normal Mood - Skin Skin Exam: Dry, Intact, Normal Color, Warm Assessment and Plan (1) ACS (acute coronary syndrome) Status: Acute (2) Chest pain Status: Acute (3) Hypertension Status: Chronic - Assessment and Plan (Free Text) Plan: During cardiac cath, x2 MARTY placed in proximal LAD ; can plan for discharge within 24-48H if patient tolerating well. Can follow up as outpt within 1wk forfor staged PCI of RCA. Lovenox 80 Q12 DC'd C/w PPX Lovenox Dose C/w Aspirin Plavix Lipitor 40 QD Metoprolol 25 Q12 Cozaar 100 QD <Hunter Soria - Last Filed: 12/21/18 18:01> Objective - Vital Signs/Intake and Output Vital Signs (last 24 hours): Temp Pulse Resp BP Pulse Ox 98.2 F 117 H 18 138/76 98 12/18/18 13:00 12/18/18 13:00 12/18/18 13:00 12/18/18 13:00 12/18/18 13:00 - Labs Labs: 12/18/18 06:04 12/18/18 06:04 Assessment and Plan (1) ACS (acute coronary syndrome) Status: Acute (2) Chest pain Status: Resolved (3) Hx of migraines Status: Chronic (4) Hypertension Status: Chronic Attending/Attestation - Attestation I have personally seen and examined this patient.: Yes I have fully participated in the care of the patient.: Yes I have reviewed all pertinent clinical information, including history, physical exam and plan: Yes
[2018-12-16] MEDS ORDERED: Insulin Detemir 100 Units/ml Inj SC SCH ×2 (22:00→22:45)
--- NOTE | 2018-12-17 01:24 | PN ---
DATE: 12/16/2018 LOCATION: Room 410. SUBJECTIVE: This is a 62-year-old female with recent uncontrolled type 2 insulin-requiring diabetes, now being followed closely for metabolic management. She presented here with sudden onset of precordial chest pain and evaluated to have an acute myocardial infarction, underwent a cardiac catheterization yesterday and is now being followed closely for metabolic management. Her glycemic levels have been low normal side today with variability of her oral intake and suboptimal meal portions as noted by the nursing staff. Her glucose levels have ranged from 75 to 105 and 94 mg/dL today as noted, it was 286 at bedtime last night. LABORATORY DATA: Her chemistries showed a BUN of 12, sodium 135, potassium 4, chloride 99, CO2 of 24, glucose 365, and creatinine 0.8. Her A1c is also quite elevated at 11.6%, indicative of suboptimal metabolic control of her diabetic condition even prior to this admission. ASSESSMENT: This is a 62-year-old female with uncontrolled and decompensated type 2 insulin-requiring diabetes, presenting here with sudden onset of precordial chest pain with supervening acute myocardial infarction and underwent cardiac catheterization confirming the presence of multivessel disease and underwent insertion of a drug-eluting stent in the proximal left anterior descending as noted. She is also possibly scheduled for an outpatient coronary angioplasty in the right coronary artery as noted. She also has diabetic microvascular complications of retinopathy and polyneuropathy with diabetic macrovascular complications of coronary artery disease and peripheral arterial disease and vasculopathy. PLAN OF MANAGEMENT: Because of the variability of her oral intake, we will modify once again her basal and bolus insulin regimen as ordered tonight. We will lower the basal insulin with Levemir to be given as 30 units subcu at bedtime daily to start tonight. We will also lower the Humalog given at mealtimes to 8 units t.i.d. before meals to start tomorrow morning as ordered. We will continue the low-dose correction scale using Humalog insulin as given. We will obtain serial chemistries and supplement accordingly as needed. We will follow. Melissa Gardner MD
[2018-12-17] MEDS: Insulin Lispro (humaLOG) 100 Units/ml Inj SC SCH ×8 (06:33→21:48)
[2018-12-17 06:45] LABS: HEMOGLOBIN 11.1 g/dL (12.0-16.0); MEAN CELL VOLUME 83.1 fl (81.0-99.0); MEAN CORPUSCULAR HEMOGLOBIN 27.9 pg (27.0-31.0); MEAN CORPUSCULAR HGB CONC 33.5 g/dL (33.0-37.0); RBC 3.97 Mil/uL (3.80-5.20); RED CELL DISTRIBUTION WIDTH 13.6 % (11.5-14.5)
[2018-12-17 07:10] LABS: ALB/GLOB RATIO 0.8 (1.0-2.1); ALBUMIN 2.5 g/dL (3.5-5.0); ALT/SGPT 22 U/L (9-52); AST/SGOT 36 U/L (14-36); BLOOD UREA NITROGEN 15 mg/dl (7-17); GFR NON-AFRICAN AMERICAN 56
[2018-12-17] MEDS ORDERED: Potassium Chloride 20 mEq ER Tab PO ONE ×2 (08:35→12:00)
[2018-12-17] MEDS: Enoxaparin 40 mg Syringe SC SCH (08:51)
[2018-12-17] MEDS: Pantoprazole 40 mg EC Tab PO SCH (08:52)
[2018-12-17] MEDS: Apap-Butalbital-Caffeine 325-50-40mg Tab PO PRN ×2 (08:58→21:02)
[2018-12-17 15:43] LABS: BLOOD UREA NITROGEN 17 mg/dl (7-17); CALCIUM 7.8 mg/dL (8.4-10.2); GFR NON-AFRICAN AMERICAN 56
--- NOTE | 2018-12-17 17:30 | CP.PCM.PN ---
Subjective - Date & Time of Evaluation Date of Evaluation: 12/17/18 Time of Evaluation: 16:00 - Subjective Subjective: F/U CP no AD , no C/P, no SOB Objective - Vital Signs/Intake and Output Vital Signs (last 24 hours): Temp Pulse Resp BP Pulse Ox 97.3 F L 111 H 19 138/87 98 12/17/18 15:55 12/17/18 15:55 12/17/18 15:55 12/17/18 15:55 12/17/18 15:55 - Medications Medications: Current Medications Acetaminophen/Butalbital/Caffeine (Fioricet) 2 tab PO Q6 PRN PRN Reason: Headache Last Admin: 12/17/18 08:58 Dose: 2 tab Amlodipine Besylate (Norvasc) 10 mg PO DAILY [facility] Last Admin: 12/17/18 08:51 Dose: 10 mg Aspirin (Aspirin Chewable) 81 mg PO DAILY [facility] Last Admin: 12/17/18 08:46 Dose: 81 mg Atorvastatin Calcium (Lipitor) 40 mg PO DAILY [facility] Last Admin: 12/17/18 08:50 Dose: 40 mg Clopidogrel Bisulfate (Plavix) 75 mg PO DAILY [facility] Last Admin: 12/17/18 08:51 Dose: 75 mg Diazepam (Valium) 10 mg PO Q12 [facility] Last Admin: 12/17/18 08:59 Dose: 10 mg Dicyclomine HCl (Bentyl) 10 mg PO Q8 PRN PRN Reason: ABDOMINAL CRAMPS Enoxaparin Sodium (Lovenox) 40 mg SC DAILY [facility]; Protocol Last Admin: 12/17/18 08:51 Dose: 40 mg Insulin Detemir (Levemir) 30 units SC HS [facility] Last Admin: 12/16/18 23:05 Dose: 30 units Insulin Human Lispro (Humalog) 0 units SC ACHS [facility] Last Admin: 12/17/18 17:28 Dose: Not Given Insulin Human Lispro (Humalog) 8 units SC AC [facility] Last Admin: 12/17/18 12:47 Dose: 8 unit Losartan Potassium (Cozaar) 100 mg PO DAILY [facility] Last Admin: 12/17/18 08:47 Dose: 100 mg Metoprolol Tartrate (Lopressor) 25 mg PO Q12 [facility] Last Admin: 12/17/18 08:50 Dose: 25 mg Olanzapine (Zyprexa) 5 mg PO HS [facility] Last Admin: 12/16/18 21:09 Dose: 5 mg Ondansetron HCl (Zofran Inj) 4 mg IVP Q4 PRN PRN Reason: Nausea/Vomiting Last Admin: 12/14/18 21:23 Dose: 4 mg Pantoprazole Sodium (Protonix Ec Tab) 40 mg PO DAILY [facility] Last Admin: 12/17/18 08:52 Dose: 40 mg - Labs Labs: 12/17/18 05:30 12/17/18 14:30 - Constitutional Appears: No Acute Distress - Head Exam Head Exam: NORMAL INSPECTION - Eye Exam Eye Exam: PERRL - ENT Exam ENT Exam: Normal Exam - Neck Exam Neck Exam: Normal Inspection - Respiratory Exam Respiratory Exam: NORMAL BREATHING PATTERN - Cardiovascular Exam Cardiovascular Exam: REGULAR RHYTHM - GI/Abdominal Exam GI & Abdominal Exam: Soft, Normal Bowel Sounds - Extremities Exam Additional comments: ecchymosis, edema Left forearm ( C Cath) - Back Exam Back Exam: NORMAL INSPECTION - Neurological Exam Neurological Exam: Alert, Awake, CN II-XII Intact, Oriented x3 - Psychiatric Exam Psychiatric exam: Anxious - Skin Skin Exam: Warm Assessment and Plan (1) S/P cardiac cath Assessment & Plan: 2 stent proximal LAD Status: Acute (2) Chest pain Status: Resolved (3) ACS (acute coronary syndrome) Assessment & Plan: NSTMI Status: Acute (4) Diabetes mellitus, insulin dependent (IDDM), uncontrolled Status: Acute (5) Hyperglycemia Status: Acute (6) Hypertension Status: Chronic (7) Head ache Status: Chronic (8) Dyslipidemia Status: Acute (9) Hx of migraines Status: Chronic (10) Anxiety Status: Chronic (11) Hypokalemia Status: Acute - Assessment and Plan (Free Text) Plan: K replacement , BMP am, continue ASA , Plavix, Lovenox, Humalog , Levemir and rest of treatment, Cardiac and Endocrine f/u appreciated
[2018-12-17] MEDS ORDERED: Insulin Detemir 100 Units/ml Inj SC SCH (22:00)
[2018-12-18 00:44] VITALS: RESP 18
--- NOTE | 2018-12-18 01:59 | PN ---
DATE: 12/17/2018 ENDOCRINOLOGY FOLLOWUP NOTE LOCATION: Room 410. SUBJECTIVE: This is a 62-year-old female with recent uncontrolled type 2 insulin-requiring diabetes, presenting here with marked hyperglycemic accelerations and is now being followed closely for metabolic management. Once again, she has extremes of glycemic fluctuations related to the variability of her oral intake with prior symptomatic hypoglycemia yesterday and now supervening hyperglycemic accelerations and with her oral intake, it has improved accordingly. Her glucose levels today have ranged from 251 to 206 and 296 mg/dL. LABORATORY DATA: Her chemistry showed a BUN of 15, sodium 136, potassium 2.9, chloride 111, CO2 of 25, glucose 234, and creatinine 1. ASSESSMENT: This is a 62-year-old female with uncontrolled and decompensated type 2 insulin-requiring diabetes with extremes of glycemic fluctuations related to the related variability of her oral intake as noted thereof. She also has diabetic microvascular complications of retinopathy and polyneuropathy with macrovascular complications of coronary artery disease and peripheral vasculopathy. PLAN OF MANAGEMENT: We will modify once again her basal and bolus insulin regimen to optimize metabolic control. We will increase the Humalog to 12 units subcu t.i.d. before meals to start tomorrow morning as ordered. We will also titrate her basal insulin with Levemir to be given at a higher dose of 36 units subcu at bedtime daily to start tonight. We will continue the low-dose correction scale using Humalog insulin as given to obviate hypoglycemia. Serial chemistries will be obtained and will supplement accordingly as needed. We will follow. Melissa Gardner MD
[2018-12-18 06:39] LABS: HEMOGLOBIN 10.7 g/dL (12.0-16.0); MEAN CELL VOLUME 84.9 fl (81.0-99.0); MEAN CORPUSCULAR HEMOGLOBIN 27.9 pg (27.0-31.0); MEAN CORPUSCULAR HGB CONC 32.8 g/dL (33.0-37.0); RBC 3.83 Mil/uL (3.80-5.20); RED CELL DISTRIBUTION WIDTH 13.4 % (11.5-14.5)
[2018-12-18 07:06] LABS: ALB/GLOB RATIO 0.8 (1.0-2.1); ALBUMIN 2.7 g/dL (3.5-5.0); ALT/SGPT 12 U/L (9-52); AST/SGOT 24 U/L (14-36); BLOOD UREA NITROGEN 13 mg/dl (7-17); CALCIUM 7.9 mg/dL (8.4-10.2); GFR NON-AFRICAN AMERICAN > 60
[2018-12-18] MEDS: Apap-Butalbital-Caffeine 325-50-40mg Tab PO PRN (09:13)
[2018-12-18] MEDS: Pantoprazole 40 mg EC Tab PO SCH (09:14)
[2018-12-18] MEDS: Enoxaparin 40 mg Syringe SC SCH (09:17)
[2018-12-18] MEDS: Insulin Lispro (humaLOG) 100 Units/ml Inj SC SCH ×6 (09:18→16:43)
--- NOTE | 2018-12-18 11:13 | PN ---
DATE: 12/18/2018 LOCATION: Room 410. SUBJECTIVE: This is a 62-year-old female with recent uncontrolled type 2 insulin-requiring diabetes, now being followed closely for metabolic management. Her glycemic levels are fluctuating as noted overnight despite the insulin dose adjustments undertaken. Her glucose levels have ranged from 251 to 255 and 311 mg/dL. Her chemistries today showed a BUN of 13, sodium 141, potassium 3.7, chloride 105, CO2 of 24, glucose 271, and creatinine 0.8. PLAN: So, at this time, we will modify once again her basal and bolus insulin regimen and increase the Levemir to 40 units subcu at bedtime daily to start tonight. We will continue the low-dose correction scale using Humalog insulin as given. We will also continue the same prandial insulin to allow for dose equilibration and keep her on the Humalog given as 12 units t.i.d. before meals as ordered. We will obtain serial chemistries and supplement accordingly as needed. We will follow. Melissa Gardner MD
--- NOTE | 2018-12-18 15:01 | CP.PCM.DIS ---
Provider - Provider Date of Admission: 12/14/18 14:46 Attending physician: Johnnie Nice MD Consults: 12/14/18 14:49 Physician Consult Stat Comment: Consulting Provider: Hunter Soria Consulting Physician: Hunter Soria Reason for Consult: ACS 12/15/18 09:46 Endocrinology Consult Routine Comment: Consulting Provider: Melissa Gardner Consulting Physician: Melissa Gardner Reason for Consult: uncontrolled blood sugar Time Spent in preparation of Discharge (in minutes): 35 Diagnosis - Discharge Diagnosis (1) S/P cardiac cath Status: Acute (2) Chest pain Status: Resolved Priority: High (3) ACS (acute coronary syndrome) Status: Acute Priority: High (4) Diabetes mellitus, insulin dependent (IDDM), uncontrolled Status: Acute Priority: High (5) Hyperglycemia Status: Acute Priority: High (6) Hypertension Status: Chronic Priority: High (7) Head ache Status: Chronic Priority: High (8) Dyslipidemia Status: Acute Priority: High (9) Hx of migraines Status: Chronic Priority: High (10) Anxiety Status: Chronic Priority: Medium (11) Hypokalemia Status: Acute Hospital Course - Lab Results Lab Results: Most Recent Lab Values WBC 5.0 K/uL (4.8-10.8) 12/18/18 06:04 RBC 3.83 Mil/uL (3.80-5.20) 12/18/18 06:04 Hgb 10.7 g/dL (12.0-16.0) L 12/18/18 06:04 Hct 32.6 % (34.0-47.0) L 12/18/18 06:04 MCV 84.9 fl (81.0-99.0) 12/18/18 06:04 MCH 27.9 pg (27.0-31.0) 12/18/18 06:04 MCHC 32.8 g/dL (33.0-37.0) L 12/18/18 06:04 RDW 13.4 % (11.5-14.5) 12/18/18 06:04 Plt Count 245 K/uL (130-400) 12/18/18 06:04 MPV 8.1 fl (7.2-11.7) 12/14/18 13:51 Neut % (Auto) 61.0 % (50.0-75.0) 12/14/18 13:51 Lymph % (Auto) 24.7 % (20.0-40.0) 12/14/18 13:51 [place] % (Auto) 6.9 % (0.0-10.0) 12/14/18 13:51 Eos % (Auto) 6.3 % (0.0-4.0) H 12/14/18 13:51 Baso % (Auto) 1.1 % (0.0-2.0) 12/14/18 13:51 Neut # (Auto) 4.8 K/uL (1.8-7.0) 12/14/18 13:51 Lymph # (Auto) 1.9 K/uL (1.0-4.3) 12/14/18 13:51 [place] # (Auto) 0.5 K/uL (0.0-0.8) 12/14/18 13:51 Eos # (Auto) 0.5 K/uL (0.0-0.7) 12/14/18 13:51 Baso # (Auto) 0.1 K/uL (0.0-0.2) 12/14/18 13:51 D-Dimer, Quantitative 541 ng/mlDDU (0-230) H 12/14/18 15:02 Sodium 141 mmol/l (132-148) 12/18/18 06:04 Potassium 3.7 MMOL/L (3.6-5.0) 12/18/18 06:04 Chloride 105 mmol/L (98-107) 12/18/18 06:04 Carbon Dioxide 24 mmol/L (22-30) 12/18/18 06:04 Anion Gap 16 (10-20) 12/18/18 06:04 BUN 13 mg/dl (7-17) 12/18/18 06:04 Creatinine 0.8 mg/dl (0.7-1.2) 12/18/18 06:04 Est GFR ( Amer) > 60 12/18/18 06:04 Est GFR (Non-Af Amer) > 60 12/18/18 06:04 POC Glucose (mg/dL) 255 mg/dL (65-110) H 12/18/18 05:53 Random Glucose 271 mg/dL (65-105) H 12/18/18 06:04 Hemoglobin A1c 11.6 % (4.2-6.5) H 12/15/18 05:15 Calcium 7.9 mg/dL (8.4-10.2) L 12/18/18 06:04 Phosphorus 5.1 mg/dl (2.5-4.5) H 12/15/18 05:15 Magnesium 1.7 MG/DL (1.6-2.3) 12/17/18 05:30 Total Bilirubin < 0.1 mg/dl (0.2-1.3) L 12/18/18 06:04 AST 24 U/L (14-36) 12/18/18 06:04 ALT 12 U/L (9-52) 12/18/18 06:04 Alkaline Phosphatase 84 U/L (38-126) 12/18/18 06:04 Troponin I 24.6000 ng/mL (0.00-0.120) H* 12/15/18 08:40 Total Protein 5.9 G/DL (6.3-8.2) L 12/18/18 06:04 Albumin 2.7 g/dL (3.5-5.0) L 12/18/18 06:04 Globulin 3.2 gm/dL (2.2-3.9) 12/18/18 06:04 Albumin/Globulin Ratio 0.8 (1.0-2.1) L 12/18/18 06:04 Triglycerides 495 mg/DL (0-149) H D 12/15/18 05:15 Cholesterol 280 mg/dL (0-199) H 12/15/18 05:15 LDL Cholesterol Direct 137 mg/dL (0-129) H 12/15/18 05:15 HDL Cholesterol 44 MG/DL (30-70) 12/15/18 05:15 Thyroxine (T4) 6.12 ug/dl (5.5-11.0) 12/15/18 05:15 TSH 3rd Generation 1.02 mIU/ML (0.46-4.68) 12/15/18 05:15 - Date & Time of H&P Date of H&P: 12/15/18 Time of H&P: 11:40 Discharge Exam - Head Exam Head Exam: NORMAL INSPECTION - Eye Exam Eye Exam: PERRL - ENT Exam ENT Exam: Normal Exam - Neck Exam Neck exam: Normal Inspection - Respiratory Exam Respiratory Exam: NORMAL BREATHING PATTERN - Cardiovascular Exam Cardiovascular Exam: REGULAR RHYTHM - GI/Abdominal Exam GI & Abdominal Exam: Normal Bowel Sounds, Soft - Extremities Exam Additional comments: Ecchymosis, edema left forearm (C Cath) - Back Exam Back exam: NORMAL INSPECTION - Neurological Exam Neurological exam: Alert, CN II-XII Intact, Oriented x3 - Psychiatric Exam Psychiatric exam: Anxious - Skin Skin Exam: Warm Discharge Plan - Follow Up Plan Condition: FAIR Disposition: HOME/ ROUTINE Patient education suggested?: Yes Instructions: Heart Attack (DC), Chest Pain (DC) Additional Instructions: follow up with in 1 week Referrals: Hunter Soria MD [Staff Provider] - Johnnie Nice MD [Staff Provider] -
[2018-12-18 15:23] VITALS: BP 138/76; PULSE 117; TEMP 98.2; O2SAT 98
--- NOTE | 2018-12-18 15:23 | CP.PCM.DIS ---
Provider - Provider Date of Admission: 12/14/18 14:46 Attending physician: Johnnie Nice MD Consults: 12/14/18 14:49 Physician Consult Stat Comment: Consulting Provider: Hunter Soria Consulting Physician: Hunter Soria Reason for Consult: ACS 12/15/18 09:46 Endocrinology Consult Routine Comment: Consulting Provider: Melissa Gardner Consulting Physician: Melissa Gardner Reason for Consult: uncontrolled blood sugar Diagnosis - Discharge Diagnosis (1) S/P cardiac cath Status: Acute (2) Chest pain Status: Resolved Priority: High (3) ACS (acute coronary syndrome) Status: Acute Priority: High (4) Diabetes mellitus, insulin dependent (IDDM), uncontrolled Status: Acute Priority: High (5) Hyperglycemia Status: Acute Priority: High (6) Hypertension Status: Chronic Priority: High (7) Head ache Status: Chronic Priority: High (8) Dyslipidemia Status: Acute Priority: High (9) Hx of migraines Status: Chronic Priority: High (10) Anxiety Status: Chronic Priority: Medium (11) Hypokalemia Status: Acute Hospital Course - Lab Results Lab Results: Most Recent Lab Values WBC 5.0 K/uL (4.8-10.8) 12/18/18 06:04 RBC 3.83 Mil/uL (3.80-5.20) 12/18/18 06:04 Hgb 10.7 g/dL (12.0-16.0) L 12/18/18 06:04 Hct 32.6 % (34.0-47.0) L 12/18/18 06:04 MCV 84.9 fl (81.0-99.0) 12/18/18 06:04 MCH 27.9 pg (27.0-31.0) 12/18/18 06:04 MCHC 32.8 g/dL (33.0-37.0) L 12/18/18 06:04 RDW 13.4 % (11.5-14.5) 12/18/18 06:04 Plt Count 245 K/uL (130-400) 12/18/18 06:04 MPV 8.1 fl (7.2-11.7) 12/14/18 13:51 Neut % (Auto) 61.0 % (50.0-75.0) 12/14/18 13:51 Lymph % (Auto) 24.7 % (20.0-40.0) 12/14/18 13:51 [place] % (Auto) 6.9 % (0.0-10.0) 12/14/18 13:51 Eos % (Auto) 6.3 % (0.0-4.0) H 12/14/18 13:51 Baso % (Auto) 1.1 % (0.0-2.0) 12/14/18 13:51 Neut # (Auto) 4.8 K/uL (1.8-7.0) 12/14/18 13:51 Lymph # (Auto) 1.9 K/uL (1.0-4.3) 12/14/18 13:51 [place] # (Auto) 0.5 K/uL (0.0-0.8) 12/14/18 13:51 Eos # (Auto) 0.5 K/uL (0.0-0.7) 12/14/18 13:51 Baso # (Auto) 0.1 K/uL (0.0-0.2) 12/14/18 13:51 D-Dimer, Quantitative 541 ng/mlDDU (0-230) H 12/14/18 15:02 Sodium 141 mmol/l (132-148) 12/18/18 06:04 Potassium 3.7 MMOL/L (3.6-5.0) 12/18/18 06:04 Chloride 105 mmol/L (98-107) 12/18/18 06:04 Carbon Dioxide 24 mmol/L (22-30) 12/18/18 06:04 Anion Gap 16 (10-20) 12/18/18 06:04 BUN 13 mg/dl (7-17) 12/18/18 06:04 Creatinine 0.8 mg/dl (0.7-1.2) 12/18/18 06:04 Est GFR ( Amer) > 60 12/18/18 06:04 Est GFR (Non-Af Amer) > 60 12/18/18 06:04 POC Glucose (mg/dL) 255 mg/dL (65-110) H 12/18/18 05:53 Random Glucose 271 mg/dL (65-105) H 12/18/18 06:04 Hemoglobin A1c 11.6 % (4.2-6.5) H 12/15/18 05:15 Calcium 7.9 mg/dL (8.4-10.2) L 12/18/18 06:04 Phosphorus 5.1 mg/dl (2.5-4.5) H 12/15/18 05:15 Magnesium 1.7 MG/DL (1.6-2.3) 12/17/18 05:30 Total Bilirubin < 0.1 mg/dl (0.2-1.3) L 12/18/18 06:04 AST 24 U/L (14-36) 12/18/18 06:04 ALT 12 U/L (9-52) 12/18/18 06:04 Alkaline Phosphatase 84 U/L (38-126) 12/18/18 06:04 Troponin I 24.6000 ng/mL (0.00-0.120) H* 12/15/18 08:40 Total Protein 5.9 G/DL (6.3-8.2) L 12/18/18 06:04 Albumin 2.7 g/dL (3.5-5.0) L 12/18/18 06:04 Globulin 3.2 gm/dL (2.2-3.9) 12/18/18 06:04 Albumin/Globulin Ratio 0.8 (1.0-2.1) L 12/18/18 06:04 Triglycerides 495 mg/DL (0-149) H D 12/15/18 05:15 Cholesterol 280 mg/dL (0-199) H 12/15/18 05:15 LDL Cholesterol Direct 137 mg/dL (0-129) H 12/15/18 05:15 HDL Cholesterol 44 MG/DL (30-70) 12/15/18 05:15 Thyroxine (T4) 6.12 ug/dl (5.5-11.0) 12/15/18 05:15 TSH 3rd Generation 1.02 mIU/ML (0.46-4.68) 12/15/18 05:15 Discharge Exam - Head Exam Head Exam: NORMAL INSPECTION Discharge Plan - Follow Up Plan Condition: FAIR Disposition: HOME/ ROUTINE Instructions: Heart Attack (DC), Chest Pain (DC) Additional Instructions: follow up with in 1 week Referrals: Hunter Soria MD [Staff Provider] - Johnnie Niec MD [Staff Provider] -
[2018-12-18] MEDS ORDERED: Insulin Detemir 100 Units/ml Inj SC SCH (22:00)
== END 2018-12-18 16:50 | disposition home or self-care (01) | DRG 853 ==
LOC: H.ER 12:22 → H.ERHOLD 14:46 → H.TEL 19:01
PROVIDERS: ADMIT Internal Medicine Pulmonary Disease; ATTEND Internal Medicine Pulmonary Disease
PROC: 4A023N7 Measurement of Cardiac Sampling and Pressure, Left Heart, Percutaneous Approach (ICD-10-PCS; principal; 2018-12-15)
PROC: 0270356 Dilation of Coronary Artery, One Artery, Bifurcation, with Two Drug-eluting Intraluminal Devices, Percutaneous Approach (ICD-10-PCS; 2018-12-15)
PROC: B206YZZ Plain Radiography of Right and Left Heart using Other Contrast (ICD-10-PCS; 2018-12-15)
DX: I21.4 Non-ST elevation (NSTEMI) myocardial infarction (principal); E11.319 Type 2 diabetes mellitus with unspecified diabetic retinopathy without macular edema; E11.42 Type 2 diabetes mellitus with diabetic polyneuropathy; E11.65 Type 2 diabetes mellitus with hyperglycemia; E11.51 Type 2 diabetes mellitus with diabetic peripheral angiopathy without gangrene; E11.649 Type 2 diabetes mellitus with hypoglycemia without coma; E87.6 Hypokalemia; I24.9 Acute ischemic heart disease, unspecified; E11.69 Type 2 diabetes mellitus with other specified complication; Z79.4 Long term (current) use of insulin; I25.10 Atherosclerotic heart disease of native coronary artery without angina pectoris; E78.00 Pure hypercholesterolemia, unspecified; E78.5 Hyperlipidemia, unspecified; F41.9 Anxiety disorder, unspecified; G43.909 Migraine, unspecified, not intractable, without status migrainosus; I10 Essential (primary) hypertension; Z87.891 Personal history of nicotine dependence; Z90.49 Acquired absence of other specified parts of digestive tract; Z95.5 Presence of coronary angioplasty implant and graft; F41.8 Other specified anxiety disorders; M19.90 Unspecified osteoarthritis, unspecified site; Z79.84 Long term (current) use of oral hypoglycemic drugs; Z79.899 Other long term (current) drug therapy; R00.1 Bradycardia, unspecified